=== PATIENT | female | born 1950 | race Caucasian/White ===

== ENCOUNTER → 2016-10-30 | Outpatient (CLI) | payer OTHER ==
[~2016-10-30] MED LIST: ASPCH81X PO; BIOFTAB23 PO; CALCTAB5 PO; CHOL100010 PO; CYAN1LOZ PO; ECHI1CAP; GLC500 PO; GLUCTAB7 PO; INSDGI SC; LACT10CA PO; LISI-791 PO; MAGN400T6 PO; NVLGI7030 SC; OMEG10007 PO; TRIA37.5 PO; hctz
--- NOTE | 2016-10-30 16:52 | MAMMOGRAPHY REPORT ---
BILATERAL DIGITAL SCREENING MAMMOGRAM TOMOSYNTHESIS WITH CAD: 10/30/2016 TECHNIQUE: Breast tomosynthesis in addition to standard 2D mammography was performed. Current study was also evaluated with a Computer Aided Detection (CAD) system. COMPARISON: Comparison is made to exams dated: 10/23/2015 mammogram, 10/21/2014 mammogram, 10/20/2013 suzy mogram, 10/19/2012 mammogram, 10/16/2011 mammogram, and 05/27/2011 mammogram - [facility] er. BREAST COMPOSITION: There are scattered areas of fibroglandular density in both breasts. FINDINGS: No suspicious masses, calcifications, or areas of architectural distortion are noted in e ither breast. There has been no significant interval change compared to prior exams. There are stab le postsurgical changes in the left upper outer quadrant from prior lumpectomy, including stable arc hitectural distortion and coarse benign dystrophic calcifications at the lumpectomy bed. Other scat tered benign-appearing calcifications are stable. IMPRESSION: ACR BI-RADS CATEGORY 2: BENIGN There is no mammographic evidence of malignancy. A 1 year screening mammogram is recommended. The p atient will receive written notification of the results. Approximately 10% of breast cancers are not detected with mammography. A negative mammographic repor t should not delay biopsy if a clinically suggestive mass is present. Brionna Browne M.D. ah/:10/30/2016 15:16:20 Physician Locums Urgent Care: Renee JACOME)(Dane), [facility] letter sent: Normal 1/2 BI-RADS Code: ACR BI-RADS Category 2: Benign
== END | disposition home or self-care (01) ==
LOC: C.MAMM 09:17
PROVIDERS: ATTEND Family Medicine
DX: Z12.31 Encounter for screening mammogram for malignant neoplasm of breast (principal)

== ENCOUNTER → 2016-11-15 | Outpatient (CLI) | payer OTHER | END | disposition home or self-care (01) | LOC: C.PAPS 15:28 | PROVIDERS: ATTEND Obstetrics & Gynecology | DX: Z01.419 Encounter for gynecological examination (general) (routine) without abnormal findings (principal); C55 Malignant neoplasm of uterus, part unspecified ==

== ENCOUNTER → 2017-02-12 | Outpatient (CLI) | payer OTHER ==
[2017-02-12 13:34] VITALS: BP 156/84; PULSE 74; TEMP 36.6; O2SAT 100
--- NOTE | 2017-02-12 17:30 | Radiation Oncology Follow-Up ---
Radiation Oncology Follow-Up Date of Visit February 12, 2017. Reason For Visit Annual follow-up Radiation Completion Date 06/02/2014 Diagnosis (1) Breast cancer Status: Resolved Onset Date: 11/28/2010 Stage: l Permanent Comment: Status post infiltrating ductal carcinoma of the left breast Status post lumpectomy and sentinel lymph node biopsy Pathologic stage [id number], estrogen receptor positive, progesterone receptor positive, HER-2/rachel negative. Status post completion of radiation therapy 02/08/2011 received 3850 cGy utilizing accelerated partial breast treatment Patient declined tamoxifen therapy Last Edited By: Paula Irene on Jan 04, 2015 16:30 (2) Uterus cancer Status: Resolved Onset Date: 11/24/2013 Permanent Comment: Postmenopausal vaginal bleeding Status post D&C suspicious for low-grade carcinoma. 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 She denies any changes to her breast. She has noted no masses or tenderness and no change of the axilla. She has noticed no increasing swelling of her arm. She was previously treated to the lymphedema clinic. She has a sleeve available to use. She is up-to- date on mammography. She saw Dr. No Lott in November and had a Pap smear. She denies any vaginal discharge or irritation. She no longer uses a vaginal dilator. There is been no change in urination or bowel habits. Allergies Coded Allergies: Penicillins (Verified Allergy, Intermediate, BODY RASH, 11/24/13) Home Medications Scheduled Aspirin (Aspirin Chewable), 81 MG PO DAILY Bioflavonoid Products (Vitamin C Plus), 1,000 MG PO DAILY Calcium (Caltrate), 600 MG PO DAILY Cholecalciferol (Vitamin D), 1,000 INTER.UNIT PO DAILY Cyanocobalamin (Vitamin B 12), 6,000 MCG PO DAILY Echinacea (Echinacea), DAILY Fish Oil ([place]-3), 900 MG PO DAILY Zknaoabzaky-Sjlhqyxfovb-Xhr C- (Glucosamine Chondroitin), 1 TAB PO BID Insulin Aspart 70/30 (Novolog Mix 70/30), 10 UNITS SC BID Insulin Glargine (Lantus), 20 UNITS SC AMPM Lisinopril (Zestril), 40 MG PO DAILY Magnesium Oxide (Mag-Ox), 400 MG PO DAILY Metformin HCL (Glucophage *), 1,000 MG PO BID Triamterene/Hctz (Dyazide 37.5MG/25MG), 1 TAB PO DAILY [hctz], QAM Review of Systems Gastrointestinal: Symptoms: WNL Oral: Symptoms: No Problems Respiratory: Symptoms: WNL Urinary: Symptoms: WNL Skin: Symptoms: No Problems Breast: Right Upper Arm Measurement: 44.5 Right Mid Arm Measurement: 30.0 Right Wrist Measurement: 16.0 Left Upper Arm Measurement: 13.5 Left Mid Arm Measurement: 31.0 Left Wrist Measurement: 16.0 Arm Dominence: Right Physical Exam Vital Signs Date Time Temp Pulse Resp B/P Pulse Ox O2 Delivery O2 Flow Rate FiO2 02/12/17 13:34 36.6 74 20 156/84 100 Pain: Patient Pain Scale: 0 - 10 Initial Pain Intensity: 0.0 Fatigue: None General Appearance: + obese Eyes: normal inspection, EOMI ENT: normal ENT inspection Neck: supple, no adenopathy, thyroid normal Respiratory/Chest: lungs clear, no respiratory distress, no accessory muscle use Breast: Breast examination reveals well-healed incisions of the left breast. There are no masses or tenderness and no axillary adenopathy. She has no skin retractions or nipple changes. Using the [place] score cosmesis she has a good outcome. The right breast showed no masses or tenderness and no axillary adenopathy. Cardiovascular: regular rate, rhythm, no gallop, no murmur Abdomen: non tender, soft Genitourinary - Female: Pelvic examination reveals normal external genitalia. She does have telangiectasia at the apex of the vagina. There is foreshortening. There is no vaginal discharge. No tenderness on bimanual examination. Anal / Rectum: Recently performed at the gynecology office. Extremities: no pedal edema Neurologic/Psychiatric: no motor/sensory deficits, alert, normal mood/affect Skin: warm/dry Lymphatic: no adenopathy Additional Studies Patient: DELLA ADAMS [facility] Rec: [id number] Address1: [address] [place] [address] Address2: Acct ID: [id number] Date: 1950 Sex: F Ref Phy: Att Phy: Brooke Fuentes M.D. Mallika Phy: Brooke Fuentes M.D. Inter Phy: Brionna Browne MD [facility] Zip: [place] [address] SC: C.MAMM Report #: [id number] Nurse'S Companion: APRIL Diagnosis: ASYMPTOMATIC Service Date: 10/30/16 MNE: [id number] Ordering Dr: Brooke Fuentes M.D. CC: Brooke Fuentes M.D. CONF: DICTATED BY: Brionna Browne MD MAMMOGRAPHY REPORT BILATERAL DIGITAL SCREENING MAMMOGRAM TOMOSYNTHESIS WITH CAD: 10/30/2016 TECHNIQUE: Breast tomosynthesis in addition to standard 2D mammography was performed. Current study was also evaluated with a Computer Aided Detection (CAD ) system. COMPARISON: Comparison is made to exams dated: 10/23/2015 mammogram, 10/21/2014 mammogram, 10/20/2013 mammogram, 10/19/2012 mammogram, 10/16/2011 mammogram, and 2010 mammogram - [facility]. BREAST COMPOSITION: There are scattered areas of fibroglandular density in both breasts. FINDINGS: No suspicious masses, calcifications, or areas of architectural distortion are noted in either breast. There has been no significant interval change compared to prior exams. There are stable postsurgical changes in the left upper outer quadrant from prior lumpectomy, including stable architectural distortion and coarse benign dystrophic calcifications at the lumpectomy bed. Other scattered benign-appearing calcifications are stable. IMPRESSION: ACR BI-RADS CATEGORY 2: BENIGN There is no mammographic evidence of malignancy. A 1 year screening mammogram is recommended. The patient will receive written notification of the results. Approximately 10% of breast cancers are not detected with mammography. A negative mammographic report should not delay biopsy if a clinically suggestive mass is present. Brionna Browne M.D. ah/:10/30/2016 15:16:20 Weight Analyst: Renee GREENWOOD(Nba)(M), [facility] letter sent: Normal 1/2 BI-RADS Code: ACR BI-RADS Category 2: Benign Dictated by: Brionna Browne MD Signed by: Brionna Browne MD Name: DELLA ADAMS Age/Sex: 66/F Location: [facility] MR#: [id number] : 1950 Rm/Bed Physician: No Lott M.D. Case: [id number] Received 11/18/16 Specimen Date 11/15/16 Specimen: VAGINAL THIN PREP LMP HYSTER GYNECOLOGICAL RESULTS DIAGNOSIS: Negative for intraepithelial Lesion or Malignancy Benign glandular cells present post-hysterectomy ADEQUACY OF THE SPECIMEN: Satisfactory for evaluation AUTOMATED EXAMINATION: This specimen was successfully imaged by the ThinPrep Imaging System, [employer], [facility]. COPIES TO Brooke Fuentes M.D. Stephenson, Laura L., M.D. Signed <signature on file> 11/19/[address] <signature on file> 05/01 Willy Santana M.D. Assessment & Plan Plan: Continue annual mammography. Continue regular follow-up with gynecology. She is seen every 6 months. We asked her to return to our office in 1 year. She may call if she has any questions or concerns in the interim. Total Time In Follow-Up I spent 25 minutes speaking to the patient performing examination. I spent 15 minutes reviewing information and completing this note. Copy To No Lott M.D. Problem Qualifiers (1) Breast cancer: Breast location: upper outer quadrant of breast Estrogen receptor status: positive Patient sex: female Laterality: right Qualified Codes: C50.411 - Malignant neoplasm of upper-outer quadrant of right female breast; Z17.0 - Estrogen receptor positive status [ER+]
== END | disposition home or self-care (01) ==
LOC: C.ONC 13:21
PROVIDERS: ATTEND Physician Assistant Medical
DX: Z08 Encounter for follow-up examination after completed treatment for malignant neoplasm (principal); Z92.3 Personal history of irradiation; Z85.3 Personal history of malignant neoplasm of breast; Z85.42 Personal history of malignant neoplasm of other parts of uterus

== ENCOUNTER → 2017-02-13 | Outpatient (CLI) | payer OTHER ==
[~2017-02-13] MED LIST changes: -LACT10CA PO
[2017-02-13 13:20] LABS: ESTIMATED AVERAGE GLUCOSE 151 mg/dl; HA1C FLAG Normal (Normal)
[2017-02-13 13:25] LABS: ALT/SGPT 32 U/L (12-78); AST/SGOT 16 U/L (15-37); BLOOD UREA NITROGEN 23 mg/dl (7-18); BUN/CREATININE RATIO 24.1 (10-20); CARBON DIOXIDE 26 mmol/L (21-32); CHLORIDE 104 mmol/L (98-107); CHOLESTEROL 171 mg/dl (0-200); CREATININE 0.97 mg/dl (0.60-1.20); GLUCOSE 154 mg/dl (70-99); POTASSIUM 4.4 mmol/L (3.5-5.1); SODIUM 138 mmol/L (136-145); TRIGLYCERIDES 191 mg/dl (0-150); VERY LOW DENSITY LIPOPROT CALC 38 mg/dl
[2017-02-13 13:36] LABS: ALB/GLOB RATIO 0.8 (0.9-2); ALKALINE PHOSPHATASE 80 U/L (45-117); CHOLESTEROL/HDL RATIO 4.6; HDL CHOLESTEROL 37 mg/dl; LDL CHOLESTEROL CALCULATED 96 mg/dl
[2017-02-13 13:37] LABS: CALCIUM 9.3 mg/dl (8.5-10.1)
== END | disposition home or self-care (01) ==
LOC: C.LABPVFM 07:54
PROVIDERS: ATTEND Family Medicine
DX: I10 Essential (primary) hypertension (principal); E78.5 Hyperlipidemia, unspecified; G47.33 Obstructive sleep apnea (adult) (pediatric); E11.9 Type 2 diabetes mellitus without complications

== ENCOUNTER → 2017-08-15 | Outpatient (CLI) | payer OTHER | END | disposition home or self-care (01) | LOC: C.PAPS 16:45 | PROVIDERS: ATTEND Obstetrics & Gynecology | DX: C55 Malignant neoplasm of uterus, part unspecified (principal) ==

== ENCOUNTER → 2017-08-21 | Outpatient (CLI) | payer OTHER ==
--- NOTE | 2017-08-21 14:05 | DIAGNOSTIC IMAGING REPORT ---
R SHOULDER MIN 2 VIEWS ROUTINE CLINICAL HISTORY: SHOULDER PAIN/ENDOMETRIOID ADENOCARCINOM OF UTERUS pain COMPARISON: None. DISCUSSION: Considerable degenerative change of the glenohumeral joint. Moderate degenerative change at the posterior surface of the humerus. Potential sclerosis lateral margin of the scapula and glenoid. MRI of the right shoulder is suggested to exclude possibility of a neoplastic process. Complete loss of articular services and or joint space. Moderate calcific supraspinatus tendinitis. IMPRESSION: 1. Degenerative change considered significant with associated sclerosis of the abdomen and humeral head. 2. MRI of the right shoulder is suggested to exclude any possibility of metastatic bone disease. 3. Mild calcific supraspinatus tendinitis. The above report was generated using voice recognition software. It may contain grammatical, syntax or spelling errors. Electronically signed by: Sae Walker M.D. 08/21/2017 2:04 PM Dictated Date/Time: 08/21/2017 2:03 PM
== END | disposition home or self-care (01) ==
LOC: C.RADPV 13:47
PROVIDERS: ATTEND Family Medicine
DX: M89.8X1 Other specified disorders of bone, shoulder (principal); M75.31 Calcific tendinitis of right shoulder; C55 Malignant neoplasm of uterus, part unspecified

== ENCOUNTER → 2017-09-17 | Outpatient (CLI) | payer OTHER ==
[~2017-09-17] MED LIST changes: +ASCO500C3 PO; +ASPI-589 PO; +CALC-393 PO; +COEN1CAP17 PO; +COLON PROBIOTIC PO; +CYAN1LOZ SL; +ECHICAP PO; +GLC/500 PO; +INSU100I23 SC; +METF1000 PO; +NVLG SQ; +NYSTCRE11 EX; +OMEG10002 PO; +[UNRECOGNIZED DRUG - CODE] PO
--- NOTE | 2017-09-17 11:38 | DIAGNOSTIC IMAGING REPORT ---
R UPPER EXT JOINT WITHOUT CLINICAL HISTORY: M25.511 Shoulder pain, [id number] abnormal shoulder series dated 08/21/2017 TECHNIQUE: Multi axial MRI acquisition COMPARISON STUDY: Shoulder series 08/21/2017 FINDINGS: Compromised study technically due to severe patient motion. No evidence for a significant bone marrow replacing process. The areas of sclerosis previous described within the lateral margin of the scapula as well as humeral head appears to be secondary to degenerative change. There does not appear to be significant evidence for a neoplastic process. There are findings of rather severe degenerative change of the glenohumeral joint. There is considerable loss of articular surface. There is mild flattening of the services the glenoid as well as humeral head. There is a moderate joint effusion. There is fluid within the acromioclavicular and subdeltoid region. Biceps tendon is intact. Axial images are of very poor quality technically although considerable deterioration of the glenoid labrum is present. The infraspinatus tendon is intact. There may be moderate tendinopathy of the subscapularis tendon with a small partial tear. The supraspinatus tendon demonstrates a full-thickness tear of its mid to anterior aspect. There is no significant musculotendinous retraction. Image quality throughout is severely compromised again due to patient motion. IMPRESSION: 1. Severely compromised exam due to extensive patient motion. 2. Severe degenerative change of the glenohumeral and to a lesser extent acromioclavicular joints with several areas of benign degenerative sclerosis. 3. No evidence for bone marrow replacement or metastatic change based on this limited scan. 4. The sclerotic changes seen in patient's prior routine image series appear to be based on degenerative change. 5. Full-thickness tear supraspinatus tendon 6. Joint effusion. 7. Moderate subscapularis tendinopathy with a small partial thickness tear. 8. Considerable deterioration on a degenerative basis of the glenoid labrum. The above report was generated using voice recognition software. It may contain grammatical, syntax or spelling errors. Electronically signed by: Sae Walker M.D. 09/17/2017 11:37 AM Dictated Date/Time: 09/17/2017 11:30 AM
== END | disposition home or self-care (01) ==
LOC: C.MRI 10:00
PROVIDERS: ATTEND Family Medicine
DX: M25.511 Pain in right shoulder (principal)

== ENCOUNTER → 2017-10-02 | Outpatient (CLI) | payer OTHER ==
[~2017-10-02] MED LIST changes: -ASCO500C3 PO; -ASPI-589 PO; -CALC-393 PO; -COEN1CAP17 PO; -COLON PROBIOTIC PO; -CYAN1LOZ SL; -ECHICAP PO; -GLC/500 PO; -INSU100I23 SC; -METF1000 PO; -NVLG SQ; -NYSTCRE11 EX; -OMEG10002 PO; -[UNRECOGNIZED DRUG - CODE] PO
[2017-10-02 13:05] LABS: HEMOGLOBIN A1C 6.4 % (4.5-5.6)
[2017-10-02 14:05] LABS: ALBUMIN 3.3 gm/dl (3.4-5.0); ALT/SGPT 26 U/L (12-78); AST/SGOT 11 U/L (15-37); BLOOD UREA NITROGEN 38 mg/dl (7-18); CALCIUM 8.9 mg/dl (8.5-10.1); CARBON DIOXIDE 25 mmol/L (21-32); CREATININE 1.96 mg/dl (0.60-1.20); GLUCOSE 148 mg/dl (70-99); POTASSIUM 4.9 mmol/L (3.5-5.1); SODIUM 136 mmol/L (136-145)
[2017-10-02 14:08] LABS: ALKALINE PHOSPHATASE 89 U/L (45-117); CHOLESTEROL 170 mg/dl (0-200); LDL CHOLESTEROL CALCULATED 101 mg/dl; TOTAL PROTEIN 7.9 gm/dl (6.4-8.2)
== END | disposition home or self-care (01) ==
LOC: C.LABPVFM 08:02
PROVIDERS: ATTEND Family Medicine
DX: I10 Essential (primary) hypertension (principal); G47.30 Sleep apnea, unspecified; E78.5 Hyperlipidemia, unspecified; C55 Malignant neoplasm of uterus, part unspecified; E11.9 Type 2 diabetes mellitus without complications; E66.9 Obesity, unspecified

== ENCOUNTER → 2017-10-03 | Outpatient (CLI) | payer OTHER | END | disposition home or self-care (01) | LOC: C.LABPVFM 16:29 | PROVIDERS: ATTEND Family Medicine | DX: I10 Essential (primary) hypertension (principal); G47.30 Sleep apnea, unspecified; E78.5 Hyperlipidemia, unspecified; C55 Malignant neoplasm of uterus, part unspecified; E11.9 Type 2 diabetes mellitus without complications; E66.9 Obesity, unspecified; R79.89 Other specified abnormal findings of blood chemistry; R77.1 Abnormality of globulin ==

== ENCOUNTER → 2017-11-20 | Outpatient (CLI) | payer OTHER ==
--- NOTE | 2017-11-20 15:04 | MAMMOGRAPHY REPORT ---
BILATERAL DIGITAL SCREENING MAMMOGRAM TOMOSYNTHESIS WITH CAD: 11/20/2017 CLINICAL HISTORY: Asymptomatic. Personal history of breast cancer. TECHNIQUE: Breast tomosynthesis in addition to standard 2D mammography was performed. Current study was also evaluated with a Computer Aided Detection (CAD) system. COMPARISON: Comparison is made to exams dated: 10/30/2016 mammogram, 10/23/2015 mammogram, 10/21/2014 suzy mogram, 10/20/2013 mammogram, 10/19/2012 mammogram, and 10/16/2011 mammogram - [facility] . BREAST COMPOSITION: There are scattered areas of fibroglandular density in both breasts. FINDINGS: No suspicious masses, calcifications, or areas of architectural distortion are noted in ei ther breast. There has been no significant interval change compared to prior exams. There are stable postsurgical changes in the left upper outer quadrant from prior lumpectomy, including stable maynor ectural distortion and coarse benign dystrophic calcifications at the lumpectomy bed. Other scattere d benign-appearing calcifications are stable. Note that the right MLO view is suboptimal and the pec toralis muscle is not well visualized as the patient could not tolerate proper positioning due to a f rozen right shoulder. IMPRESSION: ACR BI-RADS CATEGORY 2: BENIGN There is no mammographic evidence of malignancy. A 1 year screening mammogram is recommended. The pa tient will receive written notification of the results. Approximately 10% of breast cancers are not detected with mammography. A negative mammographic report should not delay biopsy if a clinically suggestive mass is present. Brionna Browne M.D. ah/:11/20/2017 12:06:18 Compressor Technician: Magdalena GREENWOOD(Nba)(Dane), [facility] letter sent: Normal 1/2 BI-RADS Code: ACR BI-RADS Category 2: Benign
== END | disposition home or self-care (01) ==
LOC: C.MAMM 11:36
PROVIDERS: ATTEND Family Medicine
DX: Z12.31 Encounter for screening mammogram for malignant neoplasm of breast (principal); Z85.3 Personal history of malignant neoplasm of breast

== ENCOUNTER → 2017-12-02 | Outpatient (CLI) | payer OTHER ==
[~2017-12-02] MED LIST changes: +ASCO500C3 PO; -ASPCH81X PO; +ASPI-589 PO; -BIOFTAB23 PO; +CALC-393 PO; -CALCTAB5 PO; -CHOL100010 PO; +COEN1CAP17 PO; +COLON PROBIOTIC PO; -CYAN1LOZ PO; +CYAN1LOZ SL; -ECHI1CAP; +ECHICAP PO; -GLC500 PO; -INSDGI SC; +INSU100I23 SC; +METF1000 PO; +NYSTCRE11 EX; +OMEG10002 PO; -OMEG10007 PO; +[UNRECOGNIZED DRUG - CODE] PO; -hctz
== END | disposition home or self-care (01) ==
LOC: C.LABPVFM 12:10
PROVIDERS: ATTEND Family Medicine
DX: R79.89 Other specified abnormal findings of blood chemistry (principal); R77.1 Abnormality of globulin

== ENCOUNTER → 2017-12-17 | Outpatient (CLI) | payer OTHER ==
[2017-12-17 13:08] LABS: ALBUMIN 3.5 gm/dl (3.4-5.0); BLOOD UREA NITROGEN 35 mg/dl (7-18); CALCIUM 9.3 mg/dl (8.5-10.1); CARBON DIOXIDE 25 mmol/L (21-32); CREATININE 1.54 mg/dl (0.60-1.20); GLUCOSE 113 mg/dl (70-99); POTASSIUM 4.6 mmol/L (3.5-5.1); SODIUM 134 mmol/L (136-145)
[2017-12-17 13:09] LABS: PHOSPHORUS 3.8 mg/dl (2.5-4.9)
== END | disposition home or self-care (01) ==
LOC: C.LAB1850 11:40
PROVIDERS: ATTEND Internal Medicine Nephrology
DX: N28.9 Disorder of kidney and ureter, unspecified (principal)

== ENCOUNTER 2017-12-26 07:04 | Inpatient (IN) | payer OTHER ==
[2017-11-26 08:30] VITALS: BMI 43.0
--- NOTE | 2017-11-26 09:04 | PAT Medication Instructions ---
"Service Date Nov 26, 2017. Current Home Medication List Ascorbic Acid (Vitamin C), 1 DOSE PO QAM Aspirin (Aspirin Adult Low Dose), 1 TAB PO QPM Calcium Carbonate (Calcium), 1 TAB PO QAM Cholecalciferol (D 1000), 1 DOSE PO QAM Coenzyme Q10 (Ubidecarenone) (Co Q 10), 1 TAB PO QPM Cyanocobalamin (B-12), 6,000 MCG SL QAM Echinacea-Goldenseal (Echinacea Comb/[place]rera [place]), 1 TAB PO QAM Kbduishzpyt-Opvvzwmgxua-Zig C- (Glucosamine Chondroitin), 1 TAB PO BID Insulin Aspart 70/30 (Novolog Mix 70/30), 1 DOSE SC TIDM Insulin Glargine (Lantus), 20 UNITS SC AMPM Insulin Glargine (Basaglar Kwikpen), 20 UNITS SC BID Lisinopril (Zestril), 40 MG PO QPM Magnesium Oxide (Mag-Ox), 400 MG PO QPM Metformin Hcl (Glucophage), 1 TAB PO BID Nystatin/Triamcinolone (Mycogen || ), 1 APPLN EX QD PRN for skin irritation [place]-3 Fatty Acids (Fish Oil), 1 CAP PO BID Triamterene/Hctz (Dyazide 37.5MG/25MG), 1 TAB PO QAM [colon probiotic], 1 TAB PO QAM Medication Instructions For Your Scheduled Surgery - Hold the following medications 2 weeks prior to surgery: Coenzyme Q10 (Ubidecarenone) (Co Q 10), 1 TAB PO QPM Echinacea-Goldenseal (Echinacea Comb/[place]), 1 TAB PO QAM Wxcplodsleg-Pyqdqbtvdrr-Tqy C- (Glucosamine Chondroitin), 1 TAB PO BID [place]-3 Fatty Acids (Fish Oil), 1 CAP PO BID - Hold the following medications 24 hours prior to surgery: Lisinopril (Zestril), 40 MG PO QPM Nystatin/Triamcinolone (Mycogen || ), 1 APPLN EX QD PRN for skin irritation - Hold the following medications the morning of surgery: Ascorbic Acid (Vitamin C), 1 DOSE PO QAM Calcium Carbonate (Calcium), 1 TAB PO QAM Cholecalciferol (D 1000), 1 DOSE PO QAM Cyanocobalamin (B-12), 6,000 MCG SL QAM Insulin Aspart 70/30 (Novolog Mix 70/30), 1 DOSE SC TIDM Metformin Hcl (Glucophage), 1 TAB PO BID [colon probiotic], 1 TAB PO QAM Triamterene/Hctz (Dyazide 37.5MG/25MG), 1 TAB PO QAM - Take the following medications as scheduled the night before surgery: Aspirin (Aspirin Adult Low Dose), 1 TAB PO QPM Insulin Aspart 70/30 (Novolog Mix 70/30), 1 DOSE SC TIDM Insulin Glargine (Basaglar Kwikpen), 20 UNITS SC BID Magnesium Oxide (Mag-Ox), 400 MG PO QPM Metformin Hcl (Glucophage), 1 TAB PO BID - For Insulin Dependent Diabetic patients: Test blood sugar A.M. of surgery. - If BLOOD SUGAR IS GREATER THAN 150, take half of your regular dose of: Insulin Glargine (Basaglar Kwikpen) --TAKE 10 UNITS - If BLOOD SUGAR IS LESS THAN 150, do not take any: Insulin Glargine ( Basaglar Kwikpen) If you have any questions please call us at [phone] or [phone] or [phone]"
--- NOTE | 2017-11-26 10:14 | DIAGNOSTIC IMAGING REPORT ---
CHEST 2 VIEWS ROUTINE HISTORY: 67 years-old Female PAT preoperative exam. No acute chest complaints COMPARISON: Chest radiographs 01/20/2014 TECHNIQUE: PA and lateral views of the chest FINDINGS: Prior mediastinal and hilar silhouettes are within normal limits. Peripherally calcified 9 mm structure projects over the left lung base laterally, likely within the left breast. Atherosclerosis of the aorta. There is no pneumothorax, pleural effusion, focal airspace consolidation or overt pulmonary edema. Degenerative changes are seen within the shoulders and spine. The bones appear grossly intact. IMPRESSION: No acute process. The above report was generated using voice recognition software. It may contain grammatical, syntax or spelling errors. Electronically signed by: Berto Chang M.D. 11/26/2017 10:13 AM Dictated Date/Time: 11/26/2017 10:11 AM
[2017-11-26 10:25] LABS: BASO % 0.2 %; BASO ABS # 0.01 K/uL (0-0.2); EOS % 3.9 %; EOS ABS # 0.26 K/uL (0-0.5); HEMATOCRIT 34.3 % (37-47); IG# 0.01 K/uL (0.00-0.02); LYMPH % 16.2 %; LYMPH ABS # 1.08 K/uL (1.2-3.4); MEAN CORPUSCULAR HEMOGLOBIN 29.2 pg (25-34); MEAN CORPUSCULAR HGB CONC 32.1 g/dl (32-36); MEAN PLATELET VOLUME 10.5 fL (7.4-10.4); MONO % 6.6 %; MONO ABS # 0.44 K/uL (0.11-0.59); NEUT % 72.9 %; NEUT ABS # 4.86 K/uL (1.4-6.5); PLATELET COUNT 207 K/uL (130-400); RED CELL DISTRIBUTION WIDTH CV 15.6 % (11.5-14.5); WHITE BLOOD COUNT 6.66 K/uL (4.8-10.8)
[2017-11-26 10:31] LABS: PTT PATIENT 24.7 SECONDS (21.0-31.0)
[2017-11-26 10:39] LABS: CALCIUM 9.1 mg/dl (8.5-10.1); CREATININE 1.55 mg/dl (0.60-1.20); POTASSIUM 4.6 mmol/L (3.5-5.1)
--- NOTE | 2017-12-25 11:15 | HISTORY & PHYSICAL EXAMINATION ---
DATE OF ADMISSION: 12/26/2017 CHIEF COMPLAINT: Primary osteoarthritis of the right shoulder. HISTORY OF PRESENT ILLNESS: Dionna is a 67-year-old female who has been having a 1-year history of right shoulder pain. MRI of the shoulder showed no signs of rotator cuff tear but advanced osteoarthritis. After failing extensive conservative treatment including multiple injections, she has elected to proceed with a right total shoulder arthroplasty. PAST MEDICAL HISTORY: Significant for diabetes, hypertension, breast cancer. MEDICATIONS: Include aspirin, insulin, CoQ10, echinacea, fish oil, glucosamine chondroitin, lisinopril, magnesium, vitamin C, metformin, metoprolol, NovoLog FlexPen, nystatin cream, triamterene/HCTZ, vitamin B12 and vitamin D. PAST SURGICAL HISTORY: Breast lumpectomy and hysterectomy. ALLERGIES: PENICILLIN, WHEAT AND DUST. FAMILY HISTORY: Significant for diabetes and heart disease. SOCIAL HISTORY: Patient is , lives alone, has 2 kids. Never drinks. She is moderately active. REVIEW OF SYSTEMS: Complains mostly of right shoulder pain. All other pertinent review of systems is negative. PHYSICAL EXAMINATION: GENERAL: She is awake, alert and orient x3. She is in no apparent distress. She is very pleasant. HEENT: Pupils equal, round and reactive to light. Extraocular movements are intact. Oral mucosa is pink and moist. HEART: Regular rate per radial pulse. LUNGS: Sofie symmetrically bilaterally with no audible breath sounds. ABDOMEN: Soft, nontender, nondistended. MUSCULOSKELETAL: On physical examination of her shoulder, she has 120 degrees of forward elevation, 100 degrees of abduction. She has crepitus to range of motion both passive and active. She has good strength, 5/5 muscle strength with full can test and external rotation. Negative bear hug and belly press test. IMAGING: X-rays of the shoulder do show advanced glenohumeral arthritis. The humeral head is located within the glenoid. There is some posterior glenoid wear but not bad. IMPRESSION: Primary osteoarthritis of the right shoulder. PLAN: Will proceed with a Biomet comprehensive right total shoulder arthroplasty. Postoperatively, she will be placed in an arm sling and kept overnight for postoperative medical management.
[2017-12-26] VITALS (8 sets, daily range): BP systolic 103–153; BP diastolic 50–90; PULSE 68–91; TEMP 36.3–36.9; O2SAT 93–99; Ht 163.8 cm; Wt 115.5 kg
[~2017-12-26] VITALS: Ht 163.8 cm; Wt 115.5 kg
[~2017-12-26 07:04] MED LIST changes: +ACETAMINOPHEN 500 MG TAB PO SCH; +CEFAZOLIN 2000MG IV PUSH 15 ML IV SCH; +FAMOTIDINE 20 MG TAB PO SCH; +GABAPENTIN 300 MG CAP PO SCH; +LACTATED RINGER'S 1000ML 1,000 ML IV SCH; +LACTATED RINGER'S 1000ML IV SCH; +ROPIVACAINE 0.5% 5 MG/ML 30 ML VIAL ONE; +ROPIVACAINE 5MG/ML 30 ML 150 MG, BUPIVACAINE 0.5% MPF INJ 30 ML, EpINEphrine HCL INJ 0.... INFIL SCH; +TRANEXAMIC ACID INJ 1,000 MG x 2 Bags IV SCH
[2017-12-26] MEDS ORDERED: FENTANYL CITRATE INJ 50 MCG/1 ML 2 ML VIAL ONE (07:23)
[2017-12-26] MEDS ORDERED: MIDAZOLAM HCL 1 MG/ML 2ML VIAL ONE (07:23)
[2017-12-26] MEDS ORDERED: BACITRACIN 50000 UNIT VIAL ONE (08:53)
--- NOTE | 2017-12-26 08:59 | History & Physical Bridge Note ---
H&P Re-Evaluation Bridge Note: I have examined the patient, reviewed the History & Physical and in the interval since the performance of the History & Physical I have noted the following changes of clinical significance: No changes noted
[2017-12-26] MEDS ORDERED: ROPIVACAINE 5MG/ML 30 ML 150 MG, BUPIVACAINE 0.5% MPF INJ 30 ML, EpINEphrine HCL INJ 0.... INFIL SCH ×8 (09:30)
[2017-12-26] MEDS ORDERED: PHENYLEPHRINE 100MCG/ML 5ML SYR ONE (10:07)
[2017-12-26] MEDS ORDERED: SUCCINYLCHOLINE CHLORIDE 20 MG/ML 10 ML VIAL IV ONE (10:07)
[2017-12-26] MEDS ORDERED: EpHEDrine SULFATE 50MG/5ML SYR ONE (10:07)
[2017-12-26] MEDS ORDERED: ONDANSETRON INJ 2 MG/ML 2 ML VIAL ONE (10:07)
[2017-12-26] MEDS ORDERED: NEOSTIGMINE METHYLSULFATE 5 MG/5 ML SYR ONE (10:07)
[2017-12-26] MEDS ORDERED: PHENYLEPHRINE HCL INJ 10 MG/ML VIAL ONE (10:07)
[2017-12-26] MEDS ORDERED: CISATRACURIUM BESYLATE IV SOLN 2 MG/ML 10 ML VIAL ONE (10:07)
[2017-12-26] MEDS ORDERED: PROPOFOL IV EMULSION 10 MG/ML 20 ML VIAL IV ONE ×2 (10:07→11:04)
[2017-12-26] MEDS ORDERED: GLYCOPYRROLATE INJ 0.2 MG/ML VIAL ONE ×2 (10:07)
[2017-12-26] MEDS ORDERED: LIDOCAINE HCL 2% 2 ML VIAL (20MG/ML) ONE (10:07)
[2017-12-26] MEDS ORDERED: DEXAMETHASONE SOD INJ 4 MG/ML VIAL ONE (10:07)
--- NOTE | 2017-12-26 11:04 | [facility] Post Operative Brief Note ---
Immediate Operative Summary Operative Date Dec 26, 2017. Pre-Operative Diagnosis Primary Osteoarthritis Right Shoulder Post-Operative Diagnosis Primary Osteoarthritis Right Shoulder Procedure(s) Performed Right Total Shoulder Arthroplasty--Cemented Surgeon Dr. Ramos Student Services Coordinator Surgeon(s) CHARLES Younger Estimated Blood Loss 250 cc Findings Consistent with Post-Op Diagnosis Specimens A. Portion of Right Humeral Head Drains None Anesthesia Type General Regional Complication(s) none Disposition Disposition: Recovery Room / PACU
[2017-12-26] MEDS ORDERED: DEXTROSE 50% 50 ML SYR IV PRN (11:15)
[2017-12-26] MEDS ORDERED: ONDANSETRON INJ 2 MG/ML 2 ML VIAL IV PRN ×2 (11:15→11:30)
[2017-12-26] MEDS ORDERED: GLUCAGON FOR INJ 1 MG VIAL SQ PRN (11:15)
[2017-12-26] MEDS ORDERED: BISACODYL 10 MG SUPP PR PRN (11:15)
[2017-12-26] MEDS ORDERED: MoRPHine SULFATE 2 MG/ML CARP IV PRN (11:15)
[2017-12-26] MEDS ORDERED: SOD PHOSPHATE/SOD BIPHOSPHATE ENEMA 132 ML BTL PR PRN (11:15)
[2017-12-26] MEDS ORDERED: NYSTATIN/TRIAMCINOLONE CR 15 GM TUBE EXT PRN (11:15)
[2017-12-26] MEDS ORDERED: OXYCODONE HCL IR 5 MG TAB (IMMEDIATE RELEASE) PO PRN (11:15)
[2017-12-26] MEDS ORDERED: GLUCOSE 40% GEL 15 GM TUBE PO PRN (11:15)
[2017-12-26] MEDS ORDERED: NALOXONE HCL 0.4 MG/1 ML VIAL/CARP IV PRN (11:15)
[2017-12-26] MEDS ORDERED: GLUCOSE 10 TABS/TUBE PO PRN (11:15)
[2017-12-26] MEDS ORDERED: METOCLOPRAMIDE HCL INJ 5 MG/ML 2 ML VIAL IV PRN (11:15)
[2017-12-26] MEDS ORDERED: MAGNESIUM HYDROXIDE SUSP 30 ML UDC PO PRN (11:15)
[2017-12-26] MEDS ORDERED: PHARMACY GLYCEMIC MGMT CONSULT PRN (11:21)
[2017-12-26] MEDS ORDERED: EpHEDrine SULFATE INJ 50 MG/ML AMP IV PRN (11:30)
[2017-12-26] MEDS ORDERED: PROMETHAZINE HCL INJ 12.5 MG in SODIUM CHLORIDE 0.9% 50ML 50 ML IV PRN (11:30)
[2017-12-26] MEDS ORDERED: ATROPINE SULFATE 0.1 MG/ML 5ML SYR IV PRN (11:30)
[2017-12-26] MEDS ORDERED: NVLG SQ (11:32)
--- NOTE | 2017-12-26 11:45 | Pharmacy Progress Note ---
Glycemic Control Intl Consult Date of Service Dec 26, 2017. Scope Glycemic Pharmacist consulted by Dr Ramos on 12/26/17 for glycemic control and to write orders per [facility] inpatient glycemic control protocol Objective Weight (Kilograms): 115.5 Accuchecks BSG (last 24hrs): Test 12/26/17 07:38 Bedside Glucose 162 mg/dl (70-90) Recent Pertinent Medications Outpatient Anti-diabetic Regimen: * Basaglar 23 units BID + Novolog TIDM 7 units/5 units/10 units + SS * Goal 90-140 * Sensitivity factor: 25 * A1c = 6.4 % 10/02/17 Risk Factors for Insulin Resistance: * Steroids: Ortho mix + dexamethasone 4 mg IV pre-op * Recent Surgery: POD #0 R- total shoulder arthroplasty * Diet: T2DM Assessment & Plan ASSESSMENT: * 67 yr old female s/p R total shoulder arthroplasty. * Patient is well controlled on basal/bolus insulin + metformin as an outpatient. She follows with [facility] Endocrinology. * She administered 50% of her home basal am dose this morning prior to surgery ( 12 units) * Continue basal + bolus insulin regimen while inpatient. Higher doses will be given on POD #0 and #1 d/t administration of IV steroids. * PM Lantus dose for today will be based off home dose of 23 units BID with stress of 3, which is equivalent to 43 units BID + 12 units to make up for partial dose of basal insulin this morning * Further Lantus orders will be based on 4/14 fasting BSG * Novolog CF/CR will also be based on off home dose with stress of 3 PLAN FOR INPATIENT GLYCEMIC CONTROL: * Holding outpatient oral diabetes medications * Will resume metformin once tolerating oral diet and evidence of stable renal function * Basal insulin * Lantus 55 units SQ this evening * Further Lantus ordered TBD * Bolus Insulin * NOVOLOG per scale ACHS or Q6hrs while NPO * Goal Range: Low 110 mg/dL - High 140 mg/dL * Correction Factor: 10 mg/dL/unit * Nutritional / Prandial insulin per carb ratio of 1 unit per 3 grams CHO consumed * Overnight checks with coverage at 00 and 04 DISCHARGE RECOMMENDATIONS: * HbA1c of 6.4% indicates adequate glycemic control. * Recommend continuation of home regimen on discharge. Thank you.
--- NOTE | 2017-12-26 12:03 | DIAGNOSTIC IMAGING REPORT ---
R SHOULDER MIN 2 VIEWS ROUTINE HISTORY: 67 years-old Female Post shoulder surgery status post right shoulder arthroplasty. Degenerative joint disease. COMPARISON: Right shoulder radiographs 08/21/2017 TECHNIQUE: 3 views of the right shoulder FINDINGS: Postoperative changes from right shoulder arthroplasty demonstrating satisfactory alignment without periprosthetic fracture or retained foreign body. Skin roxane are noted along with expected postsurgical soft tissue swelling and deep tissue air. IMPRESSION: Right shoulder arthroplasty with satisfactory alignment. The above report was generated using voice recognition software. It may contain grammatical, syntax or spelling errors. Electronically signed by: Berto Chang M.D. 12/26/2017 12:02 PM Dictated Date/Time: 12/26/2017 12:00 PM
--- NOTE | 2017-12-26 12:18 | Anesthesiology Progress Note ---
Anesthesia Post Op Note Date & Time Dec 26, 2017 at 12:18 Vital Signs Pain Intensity: 0 Vital Signs Past 12 Hours Date Time Temp Pulse Resp B/P (MAP) Pulse Ox O2 Delivery O2 Flow Rate FiO2 12/26/17 12:05 36.4 78 14 135/61 98 Nasal Cannula 2 12/26/17 11:55 98 14 140/55 98 Nasal Cannula 2 12/26/17 11:45 94 14 138/61 98 Oxymask 10 12/26/17 11:35 104 14 136/65 98 Oxymask 10 12/26/17 11:28 36.1 109 14 140/84 98 Oxymask 10 12/26/17 07:52 36.7 91 20 153/74 Room Air Notes Mental Status: alert / awake / arousable, participated in evaluation Pt Amnestic to Procedure: Yes Nausea / Vomiting: adequately controlled Pain: adequately controlled Airway Patency, RR, SpO2: stable & adequate BP & HR: stable & adequate Hydration State: stable & adequate Anesthetic Complications: no major complications apparent
[2017-12-26] MEDS: POTASSIUM CHLORIDE INJ 10 MEQ in SODIUM CHLORIDE 0.9% 1000ML 1,000 ML IV SCH (13:55)
[2017-12-26] MEDS ORDERED: NURSING DECISION MEDICATION ORDER SCH ×2 (14:00→20:15)
[2017-12-26] MEDS ORDERED: MICONAZOLE NITRATE POWDER 43 GM EXT PRN (14:00)
--- NOTE | 2017-12-26 14:01 | OPERATIVE REPORT ---
DATE OF OPERATION: 12/26/2017 PREOPERATIVE DIAGNOSIS: Primary osteoarthritis of the right shoulder. POSTOPERATIVE DIAGNOSIS: Same. PROCEDURE: Right total shoulder arthroplasty. SURGEON: Carroll Ramos DO. PARTY HOST: Harsh Guardado PA-C, whose assistance was necessary for retraction and closure. ANESTHESIA: General with a right interscalene nerve block. COMPLICATIONS: None. CONDITION: Stable to PACU. INDICATIONS: Dionna is a pleasant 67-year-old female who has been dealing with chronic progressing right shoulder pain. X-rays and clinical examination were diagnostic for primary osteoarthritis of the right shoulder. After failing conservative treatment, she elected to undergo a total shoulder arthroplasty. OPERATION AND FINDINGS: On 12/26/2017, she arrived at [facility] for the above procedure. She was seen in the preoperative holding and the operative extremity was identified and signed. She was given a preoperative antibiotic and a right interscalene nerve block. She was taken back to the operating room, laid on the table in supine position and put under general anesthesia. She was then put into the beach chair position. The right shoulder was prepped and draped in sterile fashion. Time-out was done and the patient and operative extremity was properly identified. A deltopectoral approach was used. Dissection was taken down through the fascia and the deltoid was retracted laterally and the conjoined tendon was retracted medially. The falciform ligament was released. The long head of the biceps tendon was tenodesed to the upper border of the pec major. The rotator interval was opened up. Subscapularis was then tenotomized off the lesser tuberosity with a centimeter of cuff tissue remaining. The proximal humerus was exposed. The rotator cuff was examined and appeared to be intact. A canal finding reamer was sent down the center of the humeral canal. Sequential reaming up to a size 9 reamer was done. Off that reamer, a proximal humeral resection guide was placed. The proximal humerus was then resected at 135 degrees inclination and 30 degrees of retroversion. The head was removed and inferior osteophytes were removed. The glenoid was then exposed. Time was spent doing an anterior superior capsular release. The remainder of the capsule and labrum were left intact. A Advaction signature guide was then snapped on to the anterior-superior glenoid. A guide pin was placed in the total shoulder arthroplasty hole. A medium propeller reamer was used to ream the glenoid. A central boss was drilled followed by 3 peripheral peg holes. A trial medium glenoid was used and seemed to be an excellent fit. The final glenoid with a Regenerex peg was then cemented into place with Palacos-G cement. The proximal humerus was then exposed. Sequential broaching up to a size 9 broach was done. Off that broach, a 46 x 18 mm head was trialled. It seemed to be a good fit. The shoulder was reduced, brought through a full range of motion and felt to be stable. The shoulder was then dislocated. Trial implants were removed. The final size 9 mini stem was impacted into place. A 46 x 18 mm eccentric head was then impacted into place. The shoulder was then reduced, brought through a full range of motion and felt to be stable. The subscapularis was then tenodesed back to the lesser tuberosity with transosseous FiberWire sutures and [id number] sutures. Two sutures were placed in the lateral rotator interval. The surrounding soft tissues were injected with 100 mL of an orthopedic pain control cocktail. The entire joint was irrigated with 3 liters normal saline solution with bacitracin. The axillary nerve was palpated. The skin was then closed with 2-0 Vicryl, 3-0 V-Loc suture and roxane. She was placed in a soft dressing and a regular arm sling. She was then extubated, transferred to a [facility] and taken to postanesthesia care in stable condition. She tolerated the procedure well. IMPLANTS USED: I used a [employer] comprehensive right total shoulder arthroplasty system with a size mini pressfit humeral stem, a 46 x 18 mm eccentric humeral head and a medium glenoid with a Regenerex post. The glenoid was cemented with Palacos-G cement. I attest to the content of the Intraoperative Record and any orders documented therein. Any exception s are noted below.
[2017-12-26] MEDS: INSULIN ASPART 100 UNITS/ML 3 ML PEN SC SCH ×3 (14:26→21:00)
[2017-12-26] MEDS ORDERED: INSULIN GLARGINE SOLOSTAR 100 UNITS/ML 3 ML PEN SC ONE (16:00)
[2017-12-26] MEDS: ACETAMINOPHEN IV 1,000 MG in EMPTY BAG 0 ML IV SCH (16:21)
[2017-12-26] MEDS: CEFAZOLIN IV 2,000 MG in SYRINGE 0 ML IV SCH (18:14)
[2017-12-26] MEDS: KETOROLAC TROMETHAMINE 15 MG/ML VIAL IV. SCH (18:14)
[2017-12-26] MEDS ORDERED: COUGH DROP (SUGAR FREE) LOZ 24 LOZ/1 BOX LOZ PRN (20:15)
[2017-12-26] MEDS ORDERED: SENNA 8.6 MG TAB PO SCH (21:00)
[2017-12-26] MEDS ORDERED: ASPIRIN 81 MG ECTAB PO SCH (21:00)
[2017-12-26] MEDS ORDERED: LISINOPRIL 40 MG TAB PO SCH (21:00)
[2017-12-26] MEDS: DOCUSATE SODIUM 100 MG CAP PO SCH (22:08)
[2017-12-27] MEDS: POTASSIUM CHLORIDE INJ 10 MEQ in SODIUM CHLORIDE 0.9% 1000ML 1,000 ML IV SCH ×2 (00:10→09:06)
[2017-12-27] MEDS: ACETAMINOPHEN IV 1,000 MG in EMPTY BAG 0 ML IV SCH ×2 (00:10→08:30)
[2017-12-27] MEDS: KETOROLAC TROMETHAMINE 15 MG/ML VIAL IV. SCH ×2 (00:11→06:01)
[2017-12-27] MEDS: INSULIN ASPART 100 UNITS/ML 3 ML PEN SC SCH ×3 (00:26→08:38)
[2017-12-27] MEDS: CEFAZOLIN IV 2,000 MG in SYRINGE 0 ML IV SCH (02:06)
[2017-12-27 04:00] VITALS: BP 103/58; PULSE 78; TEMP 36.4; O2SAT 94
[2017-12-27 06:02] LABS: HEMATOCRIT 29.2 % (37-47); HEMOGLOBIN 9.5 g/dL (12.0-16.0); MEAN CORPUSCULAR HGB CONC 32.5 g/dl (32-36); MEAN PLATELET VOLUME 10.3 fL (7.4-10.4); PLATELET COUNT 181 K/uL (130-400); RED CELL DISTRIBUTION WIDTH CV 15.5 % (11.5-14.5); RED CELL DISTRIBUTION WIDTH SD 50.3 fL (36.4-46.3); WHITE BLOOD COUNT 10.04 K/uL (4.8-10.8)
[2017-12-27 06:42] LABS: CALCIUM 8.3 mg/dl (8.5-10.1); CREATININE 1.92 mg/dl (0.60-1.20); POTASSIUM 4.4 mmol/L (3.5-5.1)
[2017-12-27 07:13] VITALS: BP 103/66; PULSE 83; TEMP 36.3; O2SAT 96
[2017-12-27] MEDS: DOCUSATE SODIUM 100 MG CAP PO SCH (08:34)
[2017-12-27] MEDS ORDERED: TRIAMTERENE/HCTZ 37.5/25MG CAP PO SCH (09:00)
--- NOTE | 2017-12-27 09:17 | Discharge Instructions ---
Discharge Instructions Date of Service Dec 27, 2017. Admission Reason for Admission: Right Shoulder Degenerative Joint Disease Discharge Discharge Diagnosis / Problem: R Total Shoulder Discharge Goals Goal(s): Decrease discomfort, Improve function Activity Recommendations Activity Limitations: as noted below . Instructions / Follow-Up Instructions / Follow-Up Activity and Therapy Recommendations: * Wear your sling for 3 weeks, unless otherwise instructed. You may remove your sling to shower and to dress, but otherwise, you should be in your sling at all times, including while sleeping * The shoulder replacement is very stable and you can use your hand while in the sling * Physical Therapy should start about 3-5 days from your day of surgery. Therapy will last about 8-12 weeks * You were shown a series of exercises in the hospital. Do these exercises daily including the exercises you were shown in physical therapy. Medications: * Narcotic You will likely be sent home from the hospital with a prescription for the narcotic pain medication that worked best throughout your stay. * Other medications may be prescribed for specific circumstances. If you have any questions, please call the office at . * Resume previous home medications unless otherwise instructed Dressing Care: If the incision is not draining then you may leave the roxane open to air. If there is a little bit of drainage or if the roxane are getting stuck on your clothing then cover the incision with a dry dressing. The roxane will be removed at your 2 week follow-up appointment. Showering: You may shower 5 days from the day of surgery. Let the soapy shower water run over the roxane and pat them dry. Do not scrub or soak the incision. Things To Watch For: * Drainage from the incision site that occurs more than one week after your surgery. * Increased redness at the incision site. * Fever above 102 degrees Fahrenheit. * Unusual chest pain or shortness of breath. * Call [facility] at with any of the above problems Follow-Up Visit: Follow-up with Dr. Ramos 2 weeks after your day of surgery. An appointment was probably scheduled when you signed-up for surgery in the office. If you have any questions call Office Instructions: More detailed instructions as well as Frequently Asked Questions were provided in a folder by our office when you signed-up for surgery. Please review these instructions when you get home. If you have any further questions or concerns, please feel free to call the office at [phone] Current Hospital Diet Patient's current hospital diet: Diabetes Type 2 Diet, Gluten Free Diet Discharge Diet Recommended Diet: Diabetes Type 2 Diet, Gluten Free Diet Procedures Procedures Performed: Right Total Shoulder Arthroplasty--Cemented Pending Studies Studies pending at discharge: no Laboratory Results Hemoglobin A1c Test 10/02/17 08:05 Range/Units Estimated Average Glucose 137 mg/dl Hemoglobin A1c 6.4 H 4.5-5.6 % Lipid Panel Test 10/02/17 08:05 Range/Units Triglycerides Level 190 H 0-150 mg/dl Cholesterol Level 170 0-200 mg/dl HDL Cholesterol 31 mg/dl Cholesterol/HDL Ratio 5.5 LDL Cholesterol, Calculated 101 mg/dl Medical Emergencies . Who to Call and When: Medical Emergencies: If at any time you feel your situation is an emergency, please call 911 immediately. . Non-Emergent Contact Non-Emergency issues call your: Surgeon Call Non-Emergent contact if: wound has increased drainage, wound has increased redness . "Provider Documentation" section prepared by Carroll Ramos. .
[2017-12-27] MEDS ORDERED: INSULIN GLARGINE SOLOSTAR 100 UNITS/ML 3 ML PEN SC SCH ×2 (09:30→21:00)
[2017-12-27 09:47] VITALS: BP 103/66; PULSE 83; TEMP 36.3; O2SAT 96
--- NOTE | 2017-12-27 10:27 | PROGRESS NOTE ---
DATE: 12/26/2017 CHIEF COMPLAINT: Status post right total shoulder arthroplasty postop day #1. PROGRESS: Jessica was seen and examined at bedside today. Overall, she is doing very well. She has a very little pain in the right shoulder. She was able to get some sleep last night, has no complaints. PHYSICAL EXAMINATION: Of the right shoulder, the dressing is clean and dry. She is wearing an arm sling as instructed. Her radial, median, and ulnar nerves are checked and intact at her wrist. Her axillary nerve was not checked yet. LABORATORY DATA: She has an H and H today of 9.5 and 29.2. Her glucose is 123. Her vital signs are all stable on room air and she is voiding on her own. RADIOGRAPHIC STUDIES: X-rays postoperatively of the right shoulder showed the prosthesis to be in anatomic alignment without any evidence of fracture, dislocation, or loosening. IMPRESSION: Status post right total shoulder arthroplasty postoperative day #1. PLAN: At this point, she is doing well and happy with her progress. She will be seen by physical therapy this morning for hand, wrist, elbow, and pendulum exercises. If she continues to do well, she can be discharged to home later this morning on oral pain medications.
--- NOTE | 2017-12-29 07:46 | OPERATIVE REPORT ---
DATE OF OPERATION: 12/26/2017 ADDENDUM The head size was a 42 x 18 mm eccentric head, not a 46 mm. I attest to the content of the Intraoperative Record and any orders documented therein. Any exception s are noted below.
--- NOTE | 2017-12-29 07:47 | DISCHARGE SUMMARY ---
DISCHARGE DIAGNOSIS: Primary osteoarthritis of the right shoulder. PROCEDURE: Right total shoulder arthroplasty on 12/26/[address] Carroll Ramos. DISCHARGE INSTRUCTIONS: 1. Aspirin 81 mg daily. 2. Insulin 100 units 3 times a day. 3. Insulin 23 units twice a day. 4. Zestril 40 mg daily. 5. Glucophage 1000 mg twice a day. 6. Dyazide 1 tab daily. 7. Continue all other vitamins, minerals and supplementations. 8. Right arm sling for 3 weeks. 9. Follow up with Dr. Ramos in 2 weeks. 10. Call the office of Dr. Ramos with any questions or concerns. HOSPITAL COURSE: Dionna is a pleasant 67-year-old female who presented to my office with chronic increasing right shoulder pain. X-rays and clinical examination were diagnostic for primary osteoarthritis of the right shoulder. After failing conservative treatment, she elected to undergo a right total shoulder arthroplasty. On 12/26/2017, she arrived at [facility] and underwent a right shoulder replacement without complication. She had a general anesthetic and a right interscalene nerve block. Postoperatively, she was discharged to general orthopedic floor. Her hospital course was uneventful. On postop day #1, her H and H was stable at 9.5 and 29.2. She was able to participate well with physical therapy, doing hand, wrist, elbow and pendulum exercises. Her pain was well controlled. She was subsequently discharged to home with the above instructions.
== END 2017-12-27 11:50 | disposition home or self-care (01) | DRG 483 ==
LOC: C.ACU 07:04 → C.3E 08:30 → ENRESERV 12:11
PROVIDERS: ADMIT Orthopaedic Surgery; ATTEND Orthopaedic Surgery
PROC: 0RRJ0JZ Replacement of Right Shoulder Joint with Synthetic Substitute, Open Approach (ICD-10-PCS; principal; 2017-12-26 09:10)
DX: M19.011 Primary osteoarthritis, right shoulder (principal); Z68.41 Body mass index [BMI] 40.0-44.9, adult; E11.42 Type 2 diabetes mellitus with diabetic polyneuropathy; E11.22 Type 2 diabetes mellitus with diabetic chronic kidney disease; I12.9 Hypertensive chronic kidney disease with stage 1 through stage 4 chronic kidney disease, or unspecified chronic kidney disease; N18.9 Chronic kidney disease, unspecified; G47.33 Obstructive sleep apnea (adult) (pediatric); E66.01 Morbid (severe) obesity due to excess calories; Z85.3 Personal history of malignant neoplasm of breast; Z92.3 Personal history of irradiation; Z79.4 Long term (current) use of insulin; Z79.82 Long term (current) use of aspirin; Z79.899 Other long term (current) drug therapy; Z88.0 Allergy status to penicillin; Z88.8 Allergy status to other drugs, medicaments and biological substances; Z91.018 Allergy to other foods; Z90.710 Acquired absence of both cervix and uterus; Z98.890 Other specified postprocedural states; Z83.3 Family history of diabetes mellitus; Z82.49 Family history of ischemic heart disease and other diseases of the circulatory system

== ENCOUNTER → 2018-01-19 | Outpatient (CLI) | payer OTHER ==
[~2018-01-19] MED LIST changes: -ACETAMINOPHEN 500 MG TAB PO SCH; -CEFAZOLIN 2000MG IV PUSH 15 ML IV SCH; -FAMOTIDINE 20 MG TAB PO SCH; -GABAPENTIN 300 MG CAP PO SCH; -LACTATED RINGER'S 1000ML 1,000 ML IV SCH; -LACTATED RINGER'S 1000ML IV SCH; +NVLG SQ; -NVLGI7030 SC; -ROPIVACAINE 0.5% 5 MG/ML 30 ML VIAL ONE; -ROPIVACAINE 5MG/ML 30 ML 150 MG, BUPIVACAINE 0.5% MPF INJ 30 ML, EpINEphrine HCL INJ 0.... INFIL SCH; -TRANEXAMIC ACID INJ 1,000 MG x 2 Bags IV SCH
--- NOTE | 2018-01-19 13:42 | DIAGNOSTIC IMAGING REPORT ---
EXAMINATION: RENAL ULTRASOUND CLINICAL HISTORY: N28.9 Acute renal insufficiency COMPARISON STUDY: 12/31/2011 FINDINGS: The right kidney measures 9.4 cm. The left kidney measures 11.3 cm. There is no evidence of hydronephrosis. There is an 8 mm mid pole right renal cyst. No bladder abnormalities are visualized. Bilateral ureteral jets were visualized. There is increased hepatic echogenicity, nonspecific finding often seen in hepatic steatosis IMPRESSION : 1. 8 mm right renal cyst 2. No evidence of hydronephrosis 3. Hepatic steatosis Electronically signed by: Lucio Ferraro M.D. 01/19/2018 1:41 PM Dictated Date/Time: 01/19/2018 1:40 PM
== END | disposition home or self-care (01) ==
LOC: C.ULTR 12:45
PROVIDERS: ATTEND Internal Medicine Nephrology
DX: N28.1 Cyst of kidney, acquired (principal); K76.0 Fatty (change of) liver, not elsewhere classified

== ENCOUNTER → 2018-05-01 | Outpatient (CLI) | payer OTHER ==
[~2018-05-01] MED LIST changes: +GLC/500 PO; -METF1000 PO
[2018-05-01 13:51] LABS: BLOOD UREA NITROGEN 33 mg/dl (7-18); CALCIUM 9.2 mg/dl (8.5-10.1); CARBON DIOXIDE 26 mmol/L (21-32); CREATININE 1.58 mg/dl (0.60-1.20); GLUCOSE 106 mg/dl (70-99); POTASSIUM 4.3 mmol/L (3.5-5.1); SODIUM 136 mmol/L (136-145)
== END | disposition home or self-care (01) ==
LOC: C.LABPVFM 11:02
PROVIDERS: ATTEND Nurse Practitioner Adult Health
DX: Z00.00 Encounter for general adult medical examination without abnormal findings (principal); E11.49 Type 2 diabetes mellitus with other diabetic neurological complication; Z79.4 Long term (current) use of insulin; E11.22 Type 2 diabetes mellitus with diabetic chronic kidney disease; N18.3 Chronic kidney disease, stage 3 (moderate)

== ENCOUNTER 2019-08-08 08:26 | Observation (INO) ==
[2019-08-08] MEDS ORDERED: ONDANSETRON INJ 2 MG/ML 2 ML VIAL IV STA (08:38)
[2019-08-08] MEDS ORDERED: MoRPHine SULFATE 4 MG/ML 1 ML CARP\\VIAL IV STA (08:38)
[2019-08-08] MEDS ORDERED: SODIUM CHLORIDE 0.9% 1000ML 1,000 ML IV ONE (08:39)
--- NOTE | 2019-08-08 09:00 | Emergency Department Note ---
Entered by Sherry De La Torre acting as a scribe for History of Present Illness General Chief complaint: Referred by Doctor Stated complaint: PAINFUL HERNIA Time Seen by Provider: 08/08/19 08:34 Source: patient History of Present Illness Onset (ago): hour(s) (this morning) Location: abdomen (periumbilical) Pain Consistency: + other (episode) Maximum Pain Intensity: 9 Quality: + other (pain secondary to hernia) Associated symptoms: + other (vomiting) The patient is a 68 year old female that is presenting to the Emergency Room with complaints of an episode of abdominal pain secondary to an umbilical hernia that started this morning. The patient reports that she has had the hernia since 2008 but states that the pain is worse this morning than in the past. She notes that the hernia is harder than normal. She states that she has been vomiting but she is unsure if it started before or after the pain. She denies any past operations on the hernia. She notes that she is diabetic and that her blood glucose levels have been in and out of control. She states that she did not take her insulin this morning. She denies having any food or drink today. The patient denies taking any blood thinners. Home Medications Home Medications Medication Instructions Recorded Confirmed Type insulin glargine 100 unit/mL (3 23 units SUBCUT BID #3 ml 03/13/19 03/13/19 History mL) subcutaneous pen lancets #50 ea 03/13/19 03/13/19 History lisinopril 40 mg tablet 40 mg PO DAILY #90 tab 03/13/19 03/13/19 History meclizine 25 mg tablet 25 mg PO .COMPLEX PRN tab 03/13/19 03/13/19 History nystatin-triamcinolone 100,000 1 appln TOPICAL .COMPLEX PRN gm 03/13/19 03/13/19 History unit/g-0.1 % topical cream pen needle, diabetic 32 gauge x #10 ea 03/13/19 03/13/19 History /32" insulin aspart U-100 100 unit/mL 22 units SUBCUT DAILY 90 Days #45 04/22/19 Rx (3 mL) subcutaneous pen ml MDD 40 units with sliding scale triamterene 37.5 1 cap PO DAILY #90 cap 04/22/19 Rx mg-hydrochlorothiazide 25 mg capsule insulin glargine 100 unit/mL (3 See Rx Instructions SQ DAILY #30 ml 06/16/19 Rx mL) subcutaneous pen [employer] SystemsTouch Ultra Blue Test Strip #400 ea NS 07/22/19 Rx Allergies Allergy/AdvReac Type Severity Reaction Status Date / Time Penicillins Allergy Intermediate BODY RASH Verified 03/25/19 13:57 dapagliflozin Allergy Unknown unable to Verified 03/25/19 13:57 function wheat Allergy Unknown body Verified 03/25/19 13:57 rejects levofloxacin [From Levaquin] Allergy Verified 03/25/19 13:57 pollen extracts AdvReac Verified 03/25/19 13:57 Dust Allergy Unknown DUST AND Uncoded 03/25/19 13:57 POLLEN = SNEEZING Past Med/Surg History Medical History Chronic kidney disease, stage III (moderate) (Acute) Dyslipidemia (Acute) Hypertension (Acute) Obesity, morbid, BMI 40.0-49.9 (Acute) Obstructive sleep apnea (Acute) Family History Other Coronary heart disease Hypertension Kidney disease Social History Preferred Language: Turkmen Communication Ability: Effective Director Community Organization Required: No Beliefs That Will Affect Care: None Current Living Situation: Alone Other Information That Helps Us Care for You: No Feels Safe at Home: Yes Safety Concerns: Feels Safe At This Time Smoking Status: Never smoker Do You Dip or Chew Tobacco: No ; Second Hand Exposure: No ; Tobacco Cessation Education Requested by Patient: No Hx Alcohol Use: No Hx Substance Use: No Review of Systems See HPI for pertinent positives & negatives. and A total of 10 systems reviewed and were otherwise negative Physical Exam Vital Signs Vital Signs - 24 hr 08/08/19 08:29 08/08/19 08:57 08/08/19 09:44 Temperature 36.5 C Temperature Source Oral Pulse Rate 51 L Pulse Rate [Apical] Pulse Rate [Right Finger] 92 H 78 Pulse Rhythm [Apical] Respiratory Rate 24 20 20 Respiratory Effort / Characteristics Non-Labored Non-Labored Respiratory Depth Normal Normal Respiratory Pattern Blood Pressure 224/71 H Blood Pressure [Right Arm] 205/67 H 159/75 H Blood Pressure Mean 122 Blood Pressure Mean [Right Arm] 113 103 Blood Pressure Position [Right Arm] Pulse Oximetry 98 99 99 Oxygen Delivery Method Room Air Room Air Room Air Oxygen Flow Rate Sepsis Recent Fever Within 48 Hours No Sepsis New/Unexplained Change in Mental Status No Sepsis Action Taken by Nursing No Action Required 08/08/19 10:15 08/08/19 11:49 08/08/19 11:55 Temperature 36.6 C Temperature Source Temporal Artery Scan Pulse Rate Pulse Rate [Apical] 100 H 99 H Pulse Rate [Right Finger] 96 H Pulse Rhythm [Apical] Regular Regular Respiratory Rate 20 12 18 Respiratory Effort / Characteristics Non-Labored Spontaneous Non-Labored Spontaneous Respiratory Depth Normal Normal Respiratory Pattern Regular Regular Blood Pressure Blood Pressure [Right Arm] 173/65 H 129/70 142/72 H Blood Pressure Mean Blood Pressure Mean [Right Arm] 101 89 95 Blood Pressure Position [Right Arm] Lying Lying Pulse Oximetry 97 100 100 Oxygen Delivery Method Room Air Oxymask Oxymask Oxygen Flow Rate 10 10 Sepsis Recent Fever Within 48 Hours Sepsis New/Unexplained Change in Mental Status Sepsis Action Taken by Nursing 08/08/19 12:05 08/08/19 12:15 08/08/19 12:25 Temperature 36.8 C Temperature Source Temporal Artery Scan Pulse Rate Pulse Rate [Apical] 96 H 92 H 88 Pulse Rate [Right Finger] Pulse Rhythm [Apical] Regular Regular Regular Respiratory Rate 17 17 15 Respiratory Effort / Characteristics Non-Labored Spontaneous Non-Labored Spontaneous Non-Labored Spontaneous Respiratory Depth Normal Normal Normal Respiratory Pattern Regular Regular Regular Blood Pressure Blood Pressure [Right Arm] 159/70 H 158/77 H 156/80 H Blood Pressure Mean Blood Pressure Mean [Right Arm] 99 104 105 Blood Pressure Position [Right Arm] Lying Lying Lying Pulse Oximetry 100 96 94 Oxygen Delivery Method Oxymask Room Air Room Air Oxygen Flow Rate 10 Sepsis Recent Fever Within 48 Hours Sepsis New/Unexplained Change in Mental Status Sepsis Action Taken by Nursing 08/08/19 12:35 08/08/19 12:45 Temperature 36.8 C 36.8 C Temperature Source Temporal Artery Scan Temporal Artery Scan Pulse Rate Pulse Rate [Apical] 86 86 Pulse Rate [Right Finger] Pulse Rhythm [Apical] Regular Regular Respiratory Rate 15 15 Respiratory Effort / Characteristics Non-Labored Spontaneous Non-Labored Spontaneous Respiratory Depth Normal Normal Respiratory Pattern Regular Regular Blood Pressure Blood Pressure [Right Arm] 160/65 H 145/73 H Blood Pressure Mean Blood Pressure Mean [Right Arm] 96 97 Blood Pressure Position [Right Arm] Lying Lying Pulse Oximetry 94 97 Oxygen Delivery Method Room Air Room Air Oxygen Flow Rate Sepsis Recent Fever Within 48 Hours Sepsis New/Unexplained Change in Mental Status Sepsis Action Taken by Nursing General: Uncomfortable appearing middle-aged female in no acute distress. HEENT: Normal cephalic atraumatic. Pupils are equal round and reactive to light. Extraocular movements are intact. Oropharynx is pink with moist mucous membranes. No swelling of the mouth lips or tongue. Neck: Supple with a midline trachea. No meningeal signs or stiffness, no JVD or bruits. No Stridor. Chest: Clear to auscultation bilaterally. No wheezes or rhonchi. No increased work of breathing. Heart: regular rate and rhythm. Abdomen: Large umbilical hernia that is indurated and non-reducible. Some central discoloration but no redness or warmth. Extremities: No cyanosis clubbing or edema. No calf tenderness or asymmetry Spine/Back. Non tender to palpation. No CVA tenderness Skin: Good turgor without rashes. Neurologic exam: Cranial nerves two through 12 are intact. Motor and sensation are intact and symmetrical throughout. Course Course 0837:The patient was evaluated in room B03B. A complete history and physical examination was performed. 0848: I discussed the patients case with Dr. Stovall, General Surgery, who will evaluate the patient in the ED. 0852: I reevaluated the patient. She is experiencing significant pain and is receiving IV medications at this time. 0925: An NG tube is being placed at this time and the patient will be moved to the OR. 0934: X-ray ordered at this time to evaluate the placement of her NG tube. Nursing staff reports that the patient vomited during placement. 1015: Patient has been taken to the OR for surgical management of her hernia. Administered Medications Discontinued Medications Bupivacaine HCl (Marcaine 0.5% Mpf) Confirm Administered Dose 30 ml .ROUTE .STK- MED ONE Stop: 08/08/19 10:32 Last Admin: 08/08/19 11:15 Dose: 20 ml Documented by: [id number] Epinephrine HCl (Epinephrine) Confirm Administered Dose 1 mg .ROUTE .STK-MED ONE Stop: 08/08/19 10:32 Last Admin: 08/08/19 11:15 Dose: 0.15 mg Documented by: [id number] Sodium Chloride (Nss 1000ml) 1,000 mls @ 999 mls/hr IV .Q1H1M ONE Stop: 08/08/19 09:39 Last Admin: 08/08/19 09:01 Dose: 999 mls/hr Documented by: [id number] Clindamycin Phosphate 900 mg/ (Dextrose) 56 mls @ 112 mls/hr IV ONCE ONE Stop: 08/08/19 12:20 Last Admin: 08/08/19 11:00 Dose: 112 mls/hr Documented by: [id number] Morphine Sulfate (Morphine Sulfate) 4 mg IV NOW STA Stop: 08/08/19 08:39 Last Admin: 08/08/19 09:01 Dose: 4 mg Documented by: [id number] Ondansetron HCl (Zofran) 4 mg IV NOW STA Stop: 08/08/19 08:39 Last Admin: 08/08/19 09:01 Dose: 4 mg Documented by: [id number] Medical Decision Making Differential Diagnosis Differential diagnosis: Etiologies such as umbilical hernia, incarcerated hernia, electrolyte or metabolic abnormalities, infection as well as others were entertained. Medical Records Attestation: I reviewed the patient's medical records. Home Medications Current Medication List: was personally reviewed by me Laboratory Data Attestation: I reviewed the patient's lab results. Result diagrams: 08/08/19 09:57 08/08/19 09:57 Lab Results 08/08/19 08/08/19 08/08/19 Range/Units 08:44 09:57 09:57 WBC 7.11 (4.8-10.8) K/uL RBC 3.91 L (4.2-5.4) M/uL Hgb 12.0 (12.0-16.0) g/dL Hct 35.9 L (37-47) % MCV 91.8 (80-100) fL MCH 30.7 (25-34) pg MCHC 33.4 (32-36) g/dL RDW Std Deviation 51.5 H (36.4-46.3) fL RDW Coeff of Evonne 15.4 H (11.5-14.5) % Plt Count 150 (130-400) K/uL MPV 10.7 H (7.4-10.4) fL Immature Gran % (Auto) 0.4 % Neut % (Auto) 89.5 % Lymph % (Auto) 5.9 % Douglas % (Auto) 3.2 % Eos % (Auto) 1.0 % Baso % (Auto) 0.0 % Immature Gran # (Auto) 0.03 H (0.00-0.02) K/uL Neut # (Auto) 6.36 (1.4-6.5) K/uL Lymph # (Auto) 0.42 L (1.2-3.4) K/uL Douglas # (Auto) 0.23 (0.11-0.59) K/uL Eos # (Auto) 0.07 (0-0.5) K/uL Baso # (Auto) 0.00 (0-0.2) K/uL PT 10.1 (9.0-12.0) Seconds INR 1.0 (0.9-1.1) Sodium (136-145) mmol/L Potassium (3.5-5.1) mmol/L Chloride (98-107) mmol/L Carbon Dioxide (21-32) mmol/L Anion Gap (3-11) BUN (7-18) mg/dl Creatinine (0.6-1.2) mg/dl Est Cr Clr Drug Dosing ml/min Est GFR ( Amer) Est GFR (Non-Af Amer) BUN/Creatinine Ratio (10-20) Glucose (70-99) mg/dl POC Glucose 197 H (70-99) Calcium (8.5-10.1) mg/dl Total Bilirubin (0.2-1) mg/dl AST (15-37) U/L ALT (12-78) U/L Alkaline Phosphatase (45-117) U/L Total Protein (6.4-8.2) gm/dl Albumin (3.4-5.0) gm/dl Globulin (2.5-4.0) gm/dl Albumin/Globulin Ratio (0.9-2) Lipase (73-393) U/L 08/08/19 08/08/19 Range/Units 09:57 11:57 WBC (4.8-10.8) K/uL RBC (4.2-5.4) M/uL Hgb (12.0-16.0) g/dL Hct (37-47) % MCV (80-100) fL MCH (25-34) pg MCHC (32-36) g/dL RDW Std Deviation (36.4-46.3) fL RDW Coeff of Evonne (11.5-14.5) % Plt Count (130-400) K/uL MPV (7.4-10.4) fL Immature Gran % (Auto) % Neut % (Auto) % Lymph % (Auto) % Douglas % (Auto) % Eos % (Auto) % Baso % (Auto) % Immature Gran # (Auto) (0.00-0.02) K/uL Neut # (Auto) (1.4-6.5) K/uL Lymph # (Auto) (1.2-3.4) K/uL Douglas # (Auto) (0.11-0.59) K/uL Eos # (Auto) (0-0.5) K/uL Baso # (Auto) (0-0.2) K/uL PT (9.0-12.0) Seconds INR (0.9-1.1) Sodium 139 (136-145) mmol/L Potassium 4.3 (3.5-5.1) mmol/L Chloride 107 (98-107) mmol/L Carbon Dioxide 26 (21-32) mmol/L Anion Gap 6.0 (3-11) BUN 27 H (7-18) mg/dl Creatinine 1.44 H (0.6-1.2) mg/dl Est Cr Clr Drug Dosing 46.3 ml/min Est GFR ( Amer) 43.1 Est GFR (Non-Af Amer) 37.2 BUN/Creatinine Ratio 18.5 (10-20) Glucose 189 H (70-99) mg/dl POC Glucose 178 H (70-99) Calcium 9.3 (8.5-10.1) mg/dl Total Bilirubin 0.3 (0.2-1) mg/dl AST 15 (15-37) U/L ALT 21 (12-78) U/L Alkaline Phosphatase 94 (45-117) U/L Total Protein 7.6 (6.4-8.2) gm/dl Albumin 3.5 (3.4-5.0) gm/dl Globulin 4.1 H (2.5-4.0) gm/dl Albumin/Globulin Ratio 0.8 L (0.9-2) Lipase 105 (73-393) U/L Imaging Data Radiologist's Impression: Radiology results as stated below per my review and the radiologist's interpretation: CT abd pelvis wo con CT DOSE: 1342.94 mGy.cm HISTORY: Hernia eval for umbilical hernia TECHNIQUE: Multiaxial CT images of the abdomen and pelvis were performed without contrast. A dose lowering technique was utilized adhering to the principles of ALARA. COMPARISON STUDY: None. FINDINGS: Lung bases are clear. Small cyst medial aspect anterior right hepatic lobe. Liver spleen and pancreas are otherwise unremarkable. Right kidney is atrophic. Left kidney shows mild cortical scarring. The bowel pattern is considered nonobstructive. There are 2 periumbilical hernias. These measure 3 and 4 cm respectively in maximum transaxial dimension. There are periumbilical in location. The contain fat exclusively. There is no evidence for bowel containment or incarceration. : Pattern shows several scattered diverticuli. There is no evidence for diverticulitis. There is no free fluid within the pelvic cul-de-sac. IMPRESSION: 1. 2 Anterior ventral periumbilical hernias. 2. These contain fat exclusively with no evidence for bowel containment or incarceration.. 3. Remainder the study is unremarkable. 4. The bowel pattern is nonobstructive. 5. Atrophy right kidney. The above report was generated using voice recognition software. It may contain grammatical, syntax or spelling errors. Electronically signed by: Sae Walker M.D. 08/08/2019 9:38 AM XR chest 1V portable CLINICAL HISTORY: ngt placement confirmation tube position COMPARISON STUDY: 02/18/2019 FINDINGS: Lungs are clear. Diaphragms are smooth. There is a nasogastric tube within the gastric fundus. IMPRESSION: Nasogastric tube within the gastric fundus. Otherwise negative chest. The above report was generated using voice recognition software. It may contain grammatical, syntax or spelling errors. Electronically signed by: Sae Walker M.D. 08/08/2019 9:53 AM ECG Data Attestation: I personally reviewed and interpreted this ECG as follows: Indication: + abdominal pain Rate (beats per minute): 85 Rhythm: + normal sinus ECG Intervals/blocks: + Prolonged QT (mildly at 490) ECG ST segments: no ST elevation ECG Findings: + Other (sinus arrhythmia) Comparison ECG Date: from (11/30/18) Change: the following changes noted (QT is prolonged) Blood Pressure Blood Pressure Findings: Elevated blood pressure Blood Pressure Disposition: elevated BP felt to be situational MDM Narrative This patient comes in as described above. She has a known umbilical hernia that abruptly got worse around 5 in the morning. She appears very uncomfortable on exam. She tells me she has had nausea and vomiting as well. On exam, her umbilical hernia is very indurated and not reducible. She does have some central discoloration but no redness or warmth. I was very concerned about an incarcerated hernia. She is a diabetic. I did order blood work including BSG. IV access was established she was hydrated normal saline and was given morphine 4 mgs IV and Zofran 4 mg IV for pain and nausea management. I did order a noncontrast CT as well and I discussed the case with Dr. Stovall the surgeon on-call as I feel she will likely need to go to the OR. Dr. Stovall saw her promptly and is going to take her to the operating room. Her hernia did seem to get much softer and her pain got much better after the morphine and on exam is not nearly as indurated. CAT scan does demonstrate a hernia which at this point may not be incarcerated. She has no fever or white count. She will be taken to the operating room for operative repair. Impression & Plan Incarcerated umbilical hernia, Abdominal pain, Nausea and vomiting, Diabetes mellitus Discharge Plan Visit Data Chief Complaint: Referred by Doctor Stated Complaint: PAINFUL HERNIA ED Provider: Carroll Vazquez Discharge Problem: Incarcerated umbilical hernia, Abdominal pain, Nausea and vomiting, Diabetes mellitus Patient Disposition: Being Evaluated by Surgeon Discharge Instructions Interventions: ED Discharge Assessment Last Done: 08/08/19 10:16 Discharge Problem: Abdominal pain Qualifiers: Abdominal location: periumbilical Qualified Code(s): R10.33 - Periumbilical pain Nausea and vomiting Qualifiers: Vomiting type: unspecified Vomiting Intractability: unspecified Qualified Code(s): R11.2 - Nausea with vomiting, unspecified Diabetes mellitus Qualifiers: Diabetes mellitus type: type 2 Diabetes mellitus penitentiary insulin use: with long term acute care registered nurse use Diabetes mellitus complication status: without complication Qualified Code(s): E11.9 - Type 2 diabetes mellitus without complications The scribe's documentation has been prepared under my direction and personally reviewed by me in its entirety. I confirm that the note above accurately reflects all work, treatment, procedures, and medical decision making performed by me.
--- NOTE | 2019-08-08 09:28 | History & Physical Report ---
Date of Service August 08, 2019 Assessment & Plan (1) Incarcerated umbilical hernia: CT scan pending will plan OR repair today Hospital consult for medical issues Present on Admission?: Yes (2) Obstructive sleep apnea: Present on Admission?: Yes (3) Hypertension: Present on Admission?: Yes (4) Dyslipidemia: Present on Admission?: Yes (5) Chronic kidney disease, stage III (moderate): Present on Admission?: Yes (6) Diabetes: Present on Admission?: Yes History of Present Illness Primary Care Provider: Brooke Fuentes MD The patient is a 68 year old female that presents to the ED with complaints of an episode of abdominal pain secondary to a known umbilical hernia that started this morning. She has been vomiting since this morning. She denies fever or chills. She is diabetic and that her blood glucose levels have been in and out of control. She states that she did not take her insulin this morning. She denies having any food or drink today. The patient denies taking any blood thinners. Allergies Allergy/AdvReac Type Severity Reaction Status Date / Time Penicillins Allergy Intermediate BODY RASH Verified 03/25/19 13:57 dapagliflozin Allergy Unknown unable to Verified 03/25/19 13:57 function wheat Allergy Unknown body Verified 03/25/19 13:57 rejects levofloxacin [From Levaquin] Allergy Verified 03/25/19 13:57 pollen extracts AdvReac Verified 03/25/19 13:57 Dust Allergy Unknown DUST AND Uncoded 03/25/19 13:57 POLLEN = SNEEZING Home Medications Home Medications Medication Instructions Recorded Confirmed Type insulin glargine 100 unit/mL (3 23 units SUBCUT BID #3 ml 03/13/19 03/13/19 History mL) subcutaneous pen lancets #50 ea 03/13/19 03/13/19 History lisinopril 40 mg tablet 40 mg PO DAILY #90 tab 03/13/19 03/13/19 History meclizine 25 mg tablet 25 mg PO .COMPLEX PRN tab 03/13/19 03/13/19 History nystatin-triamcinolone 100,000 1 appln TOPICAL .COMPLEX PRN gm 03/13/19 03/13/19 History unit/g-0.1 % topical cream pen needle, diabetic 32 gauge x #10 ea 03/13/19 03/13/19 History " insulin aspart U-100 100 unit/mL 22 units SUBCUT DAILY 90 Days #45 04/22/19 Rx (3 mL) subcutaneous pen ml MDD 40 units with sliding scale triamterene 37.5 1 cap PO DAILY #90 cap 04/22/19 Rx mg-hydrochlorothiazide 25 mg capsule insulin glargine 100 unit/mL (3 See Rx Instructions SQ DAILY #30 ml 06/16/19 Rx mL) subcutaneous pen OneTouch Ultra Blue Test Strip #400 ea NS 07/22/19 Rx Past Med/Surg History Medical History Chronic kidney disease, stage III (moderate) (Acute) Dyslipidemia (Acute) Hypertension (Acute) Obesity, morbid, BMI 40.0-49.9 (Acute) Obstructive sleep apnea (Acute) Family History Other Coronary heart disease Hypertension Kidney disease Social History Preferred Language: Italian Beliefs That Will Affect Care: None Feels Safe at Home: Yes Smoking Status: Never smoker Review of Systems + weakness; no fever and no chills + dyspnea on exertion; no cough and no dyspnea no chest pain, no radiating jaw, neck or arm pain and no dyspnea + abdominal pain, + nausea and + vomiting; no change in bowel habits, no constipation and no diarrhea/loose stools no dysuria and no urinary urgency no back pain and no joint pain + generalized weakness; no localized weakness no behavioral changes + fatigue; no polydipsia and no polyphagia no easy bleeding no problem reported Physical Exam Constitutional: well developed, well nourished and + morbidly obese Neck: trachea midline Respiratory: normal respiratory effort, lungs clear to auscultation no respiratory distress Cardiovascular: RRR, no murmur, no edema Gastrointestinal (Abdomen): Inspection/Auscultation: normal bowel sounds; abdomen not distended Percussion/Palpation: + abdomen tender, abdomen soft and + hernia (incarcerated with tenderness and some erythema); no guarding ASA Classification ASA [id number] Results & Data Vital Signs (Past 12 Hours) Vital Signs Temp Pulse Pulse Resp BP BP Pulse Ox 08/08/19 08:57 92 H 20 205/67 H 99 08/08/19 08:29 36.5 C 51 L 24 224/71 H 98 Code Status & VTE Plan Code Status Full Code VTE Prophylaxis Plan VTE Prophylaxis will be ordered: Yes
--- NOTE | 2019-08-08 09:40 | CT Scan Report ---
CT abd pelvis wo con CT DOSE: 1342.94 mGy.cm HISTORY: Hernia eval for umbilical hernia TECHNIQUE: Multiaxial CT images of the abdomen and pelvis were performed without contrast. A dose lo wering technique was utilized adhering to the principles of ALARA. COMPARISON STUDY: None. FINDINGS: Lung bases are clear. Small cyst medial aspect anterior right hepatic lobe. Liver spleen an d pancreas are otherwise unremarkable. Right kidney is atrophic. Left kidney shows mild cortical scarring. The bowel pattern is considered nonobstructive. There are 2 periumbilical hernias. These measure 3 an d 4 cm respectively in maximum transaxial dimension. There are periumbilical in location. The contain fat exclusively. There is no evidence for bowel containment or incarceration. : Pattern shows several scattered diverticuli. There is no evidence for diverticulitis. There is no f ree fluid within the pelvic cul-de-sac. IMPRESSION: 1. 2 Anterior ventral periumbilical hernias. 2. These contain fat exclusively with no evidence for bowel containment or incarceration.. 3. Remainder the study is unremarkable. 4. The bowel pattern is nonobstructive. 5. Atrophy right kidney. The above report was generated using voice recognition software. It may contain grammatical, syntax or spelling errors. Electronically signed by: Sae Walker M.D. 08/08/2019 9:38 AM
[2019-08-08] MEDS ORDERED: PROPOFOL IV EMULSION 10 MG/ML 20 ML VIAL IV ONE (09:48)
[2019-08-08] MEDS ORDERED: LIDOCAINE 2% 20 MG/ML 5 ML SYR IV ONE (09:49)
[2019-08-08] MEDS ORDERED: SUCCINYLCHOLINE CHLORIDE 20 MG/ML 10 ML VIAL ONE (09:50)
[2019-08-08] MEDS ORDERED: ROCURONIUM BROMIDE 10 MG/ML 5 ML VIAL ONE (09:51)
--- NOTE | 2019-08-08 09:55 | XRay Report ---
XR chest 1V portable CLINICAL HISTORY: ngt placement confirmation tube position COMPARISON STUDY: 02/18/2019 FINDINGS: Lungs are clear. Diaphragms are smooth. There is a nasogastric tube within the gastric fund us. IMPRESSION: Nasogastric tube within the gastric fundus. Otherwise negative chest. The above report was generated using voice recognition software. It may contain grammatical, syntax or spelling errors. Electronically signed by: Sae Walker M.D. 08/08/2019 9:53 AM
[2019-08-08 10:08] LABS: Eosinophils # (auto) 0.07 K/uL (0-0.5); Hematocrit (blood only) 35.9 % (37-47); Immature Granulocytes # (auto) 0.03 K/uL (0.00-0.02); Immature Granulocytes % (auto) 0.4 %; Lymphocytes # (auto) 0.42 K/uL (1.2-3.4); Lymphocytes % (auto) 5.9 %; Mean Corpuscular Hemoglobin 30.7 pg (25-34); Mean Corpuscular Hgb Conc 33.4 g/dL (32-36); Mean Corpuscular Volume 91.8 fL (80-100); Mean Platelet Volume 10.7 fL (7.4-10.4); Monocytes # (auto) 0.23 K/uL (0.11-0.59); Monocytes % (auto) 3.2 %; Neutrophils # (auto) 6.36 K/uL (1.4-6.5); Neutrophils % (auto) 89.5 %; Platelet Count 150 K/uL (130-400); RDW Coefficient of Variation 15.4 % (11.5-14.5); RDW Standard Deviation 51.5 fL (36.4-46.3); Red Blood Count 3.91 M/uL (4.2-5.4); White Blood Count 7.11 K/uL (4.8-10.8)
[2019-08-08 10:17] LABS: Prothrombin Time 10.1 Seconds (9.0-12.0)
--- NOTE | 2019-08-08 10:22 | Anesthesiology Consultation ---
Date of Service August 08, 2019 Assessment & Plan (1) Encounter for pre-operative examination: History Surgery Operation Date: 08/08/19 11:00 Proposed Procedures p Umbilical Hernia Repair - Jarrod Stovall MD Height/Weight Height: 5 ft 6 in Weight: 107.1 kg Allergies Allergy/AdvReac Type Severity Reaction Status Date / Time Penicillins Allergy Intermediate BODY RASH Verified 03/25/19 13:57 dapagliflozin Allergy Unknown unable to Verified 03/25/19 13:57 function wheat Allergy Unknown body Verified 03/25/19 13:57 rejects levofloxacin [From Levaquin] Allergy Verified 03/25/19 13:57 pollen extracts AdvReac Verified 03/25/19 13:57 Dust Allergy Unknown DUST AND Uncoded 03/25/19 13:57 POLLEN = SNEEZING Medications Home Medications Medication Instructions Recorded Confirmed Last Taken insulin glargine 100 unit/mL (3 23 units SUBCUT BID #3 ml 03/13/19 03/13/19 Unkn own mL) subcutaneous pen lancets #50 ea 03/13/19 03/13/19 Unknown lisinopril 40 mg tablet 40 mg PO DAILY #90 tab 03/13/19 03/13/19 Unknown meclizine 25 mg tablet 25 mg PO .COMPLEX PRN tab 03/13/19 03/13/19 Unknown nystatin-triamcinolone 100,000 1 appln TOPICAL .COMPLEX PRN gm 03/13/19 03/13/19 Unknown unit/g-0.1 % topical cream pen needle, diabetic 32 gauge x #10 ea 03/13/19 03/13/19 Unknown 5/32" insulin aspart U-100 100 unit/mL 22 units SUBCUT DAILY 90 Days #45 04/22/19 Unknown (3 mL) subcutaneous pen ml MDD 40 units with sliding scale triamterene 37.5 1 cap PO DAILY #90 cap 04/22/19 Unknown mg-hydrochlorothiazide 25 mg capsule insulin glargine 100 unit/mL (3 See Rx Instructions SQ DAILY #30 ml 06/16/19 Unknown mL) subcutaneous pen OneTouch Ultra Blue Test Strip #400 ea NS 07/22/19 Unknown NPO Date Last Intake of Fluids: 08/07/19 Time Last Intake of Fluids: 17:00 Last Intake of Fluids Comment: 08/07/19 Date Last Intake of Solids: 08/07/19 Time Last Intake of Solids: 17:00 Past Medical History Medical History Chronic kidney disease, stage III (moderate) (Acute) Dyslipidemia (Acute) Hypertension (Acute) Obesity, morbid, BMI 40.0-49.9 (Acute) Obstructive sleep apnea (Acute) Past Family History Family History Other Coronary heart disease Hypertension Kidney disease Social History Smoking Status: Never smoker Do You Dip or Chew Tobacco: No Hx Alcohol Use: No Hx Substance Use: No substance use type: does not use Physical Exam Vital Signs Last Vital Signs Temp 36.5 C 08/08/19 08:29 Pulse 96 H 08/08/19 10:15 Resp 20 08/08/19 10:15 BP 173/65 H 08/08/19 10:15 Pulse Ox 97 08/08/19 10:15 Testing Laboratory Results 08/08/19 09:57 PT 10.1 Seconds (9.0-12.0) 08/08/19 09:57 INR 1.0 (0.9-1.1) 08/08/19 09:57 08/08/19 08:44 POC Glucose 197 H Electrocardiogram Date: 08/08/19 sinus rhythm with marked sinus arrhythmia
[2019-08-08 10:26] LABS: Albumin Level 3.5 gm/dl (3.4-5.0); BUN Creatinine Ratio 18.5 (10-20); Calcium 9.3 mg/dl (8.5-10.1); Creatinine Clr Calc Pharmacy 46.3 ml/min; Est GFR (African American) 43.1; Est GFR (Non-African American) 37.2; Potassium 4.3 mmol/L (3.5-5.1)
[2019-08-08 10:29] LABS: Albumin Globulin Ratio 0.8 (0.9-2); Bilirubin,Total 0.3 mg/dl (0.2-1); Globulin 4.1 gm/dl (2.5-4.0); Total Protein 7.6 gm/dl (6.4-8.2)
[2019-08-08] MEDS ORDERED: BUPIVACAINE 0.5 % 5 MG/1 ML MPF 30ML VIAL ONE (10:31)
[2019-08-08] MEDS ORDERED: EPINEPHrine INJ 1 MG/ML AMP ONE (10:31)
[2019-08-08] MEDS ORDERED: MIDAZOLAM HCL 1 MG/ML 2ML VIAL ONE (10:33)
[2019-08-08] MEDS ORDERED: fentaNYL citrate 100 MCG/2 ML VIAL ONE ×2 (10:33→11:13)
[2019-08-08] MEDS ORDERED: CLINDAMYCIN PHOS 300 MG/2 ML VIAL ONE (11:01)
[2019-08-08] MEDS ORDERED: ONDANSETRON INJ 2 MG/ML 2 ML VIAL ONE ×2 (11:16→11:17)
[2019-08-08] MEDS ORDERED: NEOSTIGMINE METHYLSULFATE 5 MG/5 ML SYR ONE (11:25)
[2019-08-08] MEDS ORDERED: GLYCOPYRROLATE 0.2 MG/ML VIAL ONE ×2 (11:25→11:27)
--- NOTE | 2019-08-08 11:32 | Post Operative Brief Note ---
Immediate Post Op Note v1 Date of Surgery August 08, 2019 Pre & Post Diagnosis Operation Date: 08/08/19 11:00 Pre-Op Diagnosis: incarcerated umbilical hernia Post-Op Diagnosis: incarcerated umbilical hernia I identified the patient and participated in the time-out.: Yes Procedure Operation Date: 08/08/19 11:00 Actual Procedures p incarcerated Umbilical Hernia Repair with mesh - Jarrod Stovall MD Surgeon Jarrod Stovall MD Tile Inspector none Estimated Blood Loss 30 Findings Consistent with Post-Op Diagnosis
[2019-08-08] MEDS ORDERED: CLINDAMYCIN 900 MG in DEXTROSE 5% 50 ML IV ONE (11:51)
[2019-08-08] MEDS ORDERED: CLINDAMYCIN 600 MG/54 ML BAG IV SCH (12:00)
--- NOTE | 2019-08-08 12:50 | Anesthesiology Progress Note ---
Date of Service August 08, 2019 Anesthesia Post Procedure Vital Signs Vital Signs: Temp Pulse Pulse Pulse Resp BP BP 08/08/19 12:35 36.8 C 86 15 160/65 H 08/08/19 12:25 36.8 C 88 15 156/80 H 08/08/19 12:15 92 H 17 158/77 H 08/08/19 12:05 96 H 17 159/70 H 08/08/19 11:55 99 H 18 142/72 H 08/08/19 11:49 36.6 C 100 H 12 129/70 08/08/19 10:15 96 H 20 173/65 H 08/08/19 09:44 78 20 159/75 H 08/08/19 08:57 92 H 20 205/67 H 08/08/19 08:29 36.5 C 51 L 24 224/71 H Pulse Ox 08/08/19 12:35 94 08/08/19 12:25 94 08/08/19 12:15 96 08/08/19 12:05 100 08/08/19 11:55 100 08/08/19 11:49 100 08/08/19 10:15 97 08/08/19 09:44 99 08/08/19 08:57 99 08/08/19 08:29 98 Pain Intensity Abdomen: Pain Intensity: 0 Transfer of Care Handoff Completed per policy Notes Mental Status: alert / awake / arousable and participated in evaluation Patient Amnestic to Procedure: Yes Nausea / Vomiting: adequately controlled Pain: adequately controlled Airway Patency, RR, SpO2: stable & adequate BP & HR: stable & adequate Hydration State: stable & adequate Anesthetic Complications: no major complications apparent and Pt Satisfied with anesthetic care
--- NOTE | 2019-08-08 13:00 | Operative Report ---
DATE OF OPERATION: 08/08/2019 PREOPERATIVE DIAGNOSIS: Incarcerated umbilical hernia. POSTOPERATIVE DIAGNOSIS: Incarcerated umbilical hernia with incarcerated omentum. PROCEDURE PERFORMED: Open umbilical hernia repair with 8 cm Ventralight circular mesh. SURGEON: Jarrod Stovall. WINDOWS INFRASTRUCTURE ENGINEER: None. ANESTHESIA: General endotracheal with 0.5% Marcaine with epinephrine local. ESTIMATED BLOOD LOSS: 30 mL. DRAINS: None. SPECIMENS: None. COMPLICATIONS: None. INDICATION FOR PROCEDURE: This is a 68-year-old female who presented to the ED with acute abdominal pain with nausea and vomiting. She had an obviously incarcerated umbilical hernia. This was a chronic issue, but she was tender and it was inflamed around the umbilicus. CT scan was done which showed a defect along with a large amount of omentum within this. Because of her symptoms and potentially she had a loop of bowel which popped in, we decided to repair this urgently. We talked in detail about the risk of recurrence, bleeding, infection, possible bowel resection. She understands this and wishes to proceed. DESCRIPTION OF PROCEDURE: The patient was taken to the OR and underwent excellent general endotracheal anesthesia. Abdomen was prepped and draped in normal sterile fashion. She had an NG tube was placed perioperatively and this drained her stomach prior to intubation. She was given 2 grams of Ancef. An infraumbilical incision was made and dissection was taken down to identify her fascia. She had a large umbilical hernia with incarcerated what appeared to be omentum. The hernia sac was entered into and there was largest bloody fluid along with omentum. This was a large amount of omentum. Therefore, a portion of the omentum was resected in 2 sections. This facilitated reduction of the omentum. There was some bleeding on the omentum, which was cauterized. This lost about 30 mL of blood. Once the omentum was reduced, the defect was noted. It was about 3 cm in width and therefore a large piece 8 cm Ventralight mesh was obtained. This was placed into the peritoneal cavity after it was dunked in water with the Seprafilm side towards the omentum. The fascia was refreshed circumferentially. Interrupted 0 Ethibond sutures were used to secure the mesh to the fascia with multiple sutures. Once this was done, an umbilicoplasty was performed. The defect was irrigated out and suctioned clear. Deep tissues were closed with interrupted Vicryls and roxane used to close the skin. She tolerated the procedure well with no complications, sent to postop recovery and then be sent to her room after she meets criteria in the postop period. I attest to the content of the Intraoperative Record and any orders documented therein. Any exception s are noted below.
[2019-08-08] MEDS ORDERED: MoRPHine SULFATE 2 MG/ML CARP IV PRN (13:23)
[2019-08-08] MEDS ORDERED: OXYCODONE/ACETAMINOPHEN 5mg/325mg TAB PO PRN ×2 (13:23)
[2019-08-08] MEDS ORDERED: ONDANSETRON INJ 2 MG/ML 2 ML VIAL IV PRN (13:23)
[2019-08-08] MEDS ORDERED: MoRPHine SULFATE 10 MG/ML CARP/VIAL IV PRN (13:23)
[2019-08-08] MEDS ORDERED: PROMETHAZINE HCL 12.5 MG in SODIUM CHLORIDE 0.9% 50 ML IV PRN (13:23)
[2019-08-08] MEDS ORDERED: ACETAMINOPHEN 325 MG TAB PO PRN (13:23)
--- NOTE | 2019-08-08 14:56 | Hospitalist Consultation ---
Date of Consultation August 08, 2019 Assessment & Plan (1) Incarcerated umbilical hernia: Status post surgical repair today. Surgery following. Pain control per surgery team. She is getting morphine as needed basis, Zofran as needed for nausea vomiting. (2) Diabetes mellitus: Add sliding scale insulin per hospital protocol. (3) Abdominal pain: Postop pain under control. Pain control per primary team. (4) Nausea and vomiting: (5) Obstructive sleep apnea: (6) Hypertension: Continue lisinopril. (7) Obesity, morbid, BMI 40.0-49.9: (8) Dyslipidemia: (9) Chronic kidney disease, stage III (moderate): Consider nephrology consultation. Add gentle IV fluids. (10) Breast cancer: (11) DVT prophylaxis: Add subcu heparin. History of Present Illness Reason for Consultation: Postop medical management Requesting Physician: Jarrod Stovall MD Attending Physician: Jarrod Stovall MD History of Present Illness The patient is 68-year-old female who had umbilical hernia repair today for incarcerated umbilical hernia. She tolerated the surgery well without any complications. Hospitalist consultation was requested for medical management. She has history of hypertension, diabetes, dyslipidemia, and chronic kidney disease. Her postoperative pain is under control. She has been started on clear liquids and diet will be advanced gradually. No fever. Allergies Allergy/AdvReac Type Severity Reaction Status Date / Time Penicillins Allergy Intermediate BODY RASH Verified 03/25/19 13:57 dapagliflozin Allergy Unknown unable to Verified 03/25/19 13:57 function wheat Allergy Unknown body Verified 03/25/19 13:57 rejects levofloxacin [From Levaquin] Allergy Verified 03/25/19 13:57 pollen extracts AdvReac Verified 03/25/19 13:57 Dust Allergy Unknown DUST AND Uncoded 03/25/19 13:57 POLLEN = SNEEZING Home Medications Home Medications Medication Instructions Recorded Confirmed Type insulin glargine 100 unit/mL (3 23 units SUBCUT BID #3 ml 03/13/19 03/13/19 History mL) subcutaneous pen lancets #50 ea 03/13/19 03/13/19 History lisinopril 40 mg tablet 40 mg PO DAILY #90 tab 03/13/19 03/13/19 History meclizine 25 mg tablet 25 mg PO .COMPLEX PRN tab 03/13/19 03/13/19 History nystatin-triamcinolone 100,000 1 appln TOPICAL .COMPLEX PRN gm 03/13/19 History unit/g-0.1 % topical cream pen needle, diabetic 32 gauge x #10 ea 03/13/19 03/13/19 History " insulin aspart U-100 100 unit/mL 22 units SUBCUT DAILY 90 Days #45 04/22/19 Rx (3 mL) subcutaneous pen ml MDD 40 units with sliding scale triamterene 37.5 1 cap PO DAILY #90 cap 04/22/19 Rx mg-hydrochlorothiazide 25 mg capsule insulin glargine 100 unit/mL (3 See Rx Instructions SQ DAILY #30 ml 06/16/19 Rx mL) subcutaneous pen Spectrum BridgeTouch Ultra Blue Test Strip #400 ea NS 07/22/19 Rx Patient History Medical History Chronic kidney disease, stage III (moderate) (Acute) Dyslipidemia (Acute) Hypertension (Acute) Obesity, morbid, BMI 40.0-49.9 (Acute) Obstructive sleep apnea (Acute) Family History Other Coronary heart disease Hypertension Kidney disease Social History Preferred Language: Malay Communication Ability: Effective Slurry Plant Operator Required: No Beliefs That Will Affect Care: None Current Living Situation: Alone Other Information That Helps Us Care for You: No Feels Safe at Home: Yes Safety Concerns: Feels Safe At This Time Smoking Status: Never smoker Do You Dip or Chew Tobacco: No ; Second Hand Exposure: No ; Tobacco Cessation Education Requested by Patient: No Hx Alcohol Use: No Hx Substance Use: No Review of Systems Review of Systems: All systems reviewed & are unremarkable except as noted in HPI & below Physical Exam Physical Exam: GENERAL : No acute distress EYES: No icterus, gaze conjugate NOSE: No evidence of epistaxis MOUTH: No lesions or candidiasis, mucosa moist NECK: Supple LUNGS: CTA B/L, no wheezes, rales or rhonchi HEART: Regular, rate controlled ABDOMEN: Soft, NT, ND, BS Present Postop dressing noted. EXTREMITIES: No LE edema, pedal pulses intact NEURO: A&OX3 Results & Data Vital Signs (Past 12 Hours) Vital Signs Temp Pulse Pulse Pulse Pulse Resp BP 08/08/19 14:10 97.5 F L 61 18 08/08/19 13:40 97.7 F 67 20 08/08/19 13:10 97.7 F 53 L 16 08/08/19 12:45 98.2 F 86 15 08/08/19 12:35 98.2 F 86 15 08/08/19 12:25 98.2 F 88 15 08/08/19 12:15 92 H 17 08/08/19 12:05 96 H 17 08/08/19 11:55 99 H 18 08/08/19 11:49 97.9 F 100 H 12 08/08/19 10:15 96 H 20 08/08/19 09:44 78 20 08/08/19 08:57 92 H 20 08/08/19 08:29 97.7 F 51 L 24 224/71 H BP BP Pulse Ox Pulse Ox 08/08/19 14:10 139/72 93 08/08/19 13:40 146/77 H 93 08/08/19 13:10 144/81 H 97 97 08/08/19 12:45 145/73 H 97 08/08/19 12:35 160/65 H 94 08/08/19 12:25 156/80 H 94 08/08/19 12:15 158/77 H 96 08/08/19 12:05 159/70 H 100 08/08/19 11:55 142/72 H 100 08/08/19 11:49 129/70 100 08/08/19 10:15 173/65 H 97 08/08/19 09:44 159/75 H 99 08/08/19 08:57 205/67 H 99 08/08/19 08:29 98 Laboratory Results 08/08/19 09:57 08/08/19 09:[address] abd pelvis wo con CT DOSE: 1342.94 mGy.cm HISTORY: Hernia eval for umbilical hernia TECHNIQUE: Multiaxial CT images of the abdomen and pelvis were performed without contrast. A dose lowering technique was utilized adhering to the principles of ALARA. COMPARISON STUDY: None. FINDINGS: Lung bases are clear. Small cyst medial aspect anterior right hepatic lobe. Liver spleen and pancreas are otherwise unremarkable. Right kidney is atrophic. Left kidney shows mild cortical scarring. The bowel pattern is considered nonobstructive. There are 2 periumbilical hernias. These measure 3 and 4 cm respectively in maximum transaxial dimension. There are periumbilical in location. The contain fat exclusively. There is no evidence for bowel containment or incarceration. : Pattern shows several scattered diverticuli. There is no evidence for diverticulitis. There is no free fluid within the pelvic cul-de-sac. IMPRESSION: 1. 2 Anterior ventral periumbilical hernias. 2. These contain fat exclusively with no evidence for bowel containment or incarceration.. 3. Remainder the study is unremarkable. 4. The bowel pattern is nonobstructive. 5. Atrophy right kidney. XR chest 1V portable CLINICAL HISTORY: ngt placement confirmation tube position COMPARISON STUDY: 02/18/2019 FINDINGS: Lungs are clear. Diaphragms are smooth. There is a nasogastric tube within the gastric fundus. IMPRESSION: Nasogastric tube within the gastric fundus. Otherwise negative chest. PG Care Time/CCT Total # of Minutes Spent Total Time Spent with Patient: Total time spent is greater than 50% in coordination of care (as documented) at patient's floor/unit and/or counseling patient: (1) Diabetes mellitus Diabetes mellitus complication status: without complication Diabetes mellitus termite treater insulin use: with snf use Diabetes mellitus type: type 2 Qualified Code(s): E11.9 - Type 2 diabetes mellitus without complications; Z79.4 - manager terminal (current) use of insulin (2) Nausea and vomiting Vomiting Intractability: unspecified Vomiting type: unspecified Qualified Code(s): R11.2 - Nausea with vomiting, unspecified (3) Abdominal pain Abdominal location: periumbilical Qualified Code(s): R10.33 - Periumbilical pain
[2019-08-08] MEDS ORDERED: CARBOHYDRATES FOR HYPOGLYCEMIA PO PRN (14:57)
[2019-08-08] MEDS ORDERED: GLUCAGON FOR INJ 1 MG VIAL SQ PRN ×2 (14:57→18:12)
[2019-08-08] MEDS ORDERED: GLUCOSE 10 TABS/TUBE PO PRN ×2 (14:57→18:12)
[2019-08-08] MEDS ORDERED: DEXTROSE 50% 50 ML SYRINGE IV PRN ×2 (14:57→18:12)
[2019-08-08] MEDS ORDERED: GLUCOSE 40% GEL 15 GM TUBE PO PRN ×2 (14:57→18:12)
[2019-08-08] MEDS: LACTATED RINGER'S 1,000 ML IV SCH (16:00)
[2019-08-08] MEDS: INSULIN ASPART 100 UNITS/ML 3 ML PEN SC SCH ×2 (19:21→21:05)
[2019-08-08] MEDS: HEPARIN SOD 5,000 UNIT/0.5 ML VIAL SQ SCH (21:05)
[2019-08-08 22:19] LABS: Appearance Urine Clear (Clear); Bacteria Urine Automated Negative (Negative); Bilirubin Urine Negative (Negative); Blood Urine 2+ (Negative); Cast Urine Automated 0 /lpf (0-5); Color Urine Yellow; Epithelial Cell Urine Auto 0-5 /lpf (0-5); Glucose Urine UA Negative (Negative); Ketones Urine Negative (Negative); Leukocyte Esterase Urine Negative (Negative); Nitrite Urine Negative (Negative); Protein Urine Negative (Negative); Specific Gravity Urine 1.019 (1.000-1.030); Urobilinogen Urine Negative (Negative); WBC Urine Automated 0 /hpf (0-5)
[2019-08-09] MEDS: LACTATED RINGER'S 1,000 ML IV SCH ×2 (02:05→11:13)
[2019-08-09] MEDS: HEPARIN SOD 5,000 UNIT/0.5 ML VIAL SQ SCH ×3 (06:19→22:06)
[2019-08-09] MEDS: IBUPROFEN 600 MG TAB PO PRN ×2 (06:29→13:22)
--- NOTE | 2019-08-09 08:01 | Anesthesiology Progress Note ---
Date of Service August 09, 2019 Anesthesia Post Procedure Vital Signs Vital Signs: Temp Pulse Pulse Pulse Pulse Pulse Resp 08/09/19 04:00 36.8 C 80 16 08/08/19 23:45 08/08/19 23:11 36.8 C 71 16 08/08/19 23:10 36.8 C 71 16 08/08/19 19:38 36.9 C 69 17 08/08/19 16:07 36.5 C 58 L 18 08/08/19 15:19 36.5 C 65 17 08/08/19 14:10 36.4 C L 61 18 08/08/19 13:40 36.5 C 67 20 08/08/19 13:10 36.5 C 53 L 16 08/08/19 12:45 36.8 C 86 15 08/08/19 12:35 36.8 C 86 15 08/08/19 12:25 36.8 C 88 15 08/08/19 12:15 92 H 17 08/08/19 12:05 96 H 17 08/08/19 11:55 99 H 18 08/08/19 11:49 36.6 C 100 H 12 08/08/19 10:15 96 H 20 08/08/19 09:44 78 20 08/08/19 08:57 92 H 20 08/08/19 08:29 36.5 C 51 L 24 BP BP BP Pulse Ox Pulse Ox 08/09/19 04:00 137/71 96 08/08/19 23:45 97 08/08/19 23:11 107/67 97 08/08/19 23:10 97 08/08/19 19:38 143/64 H 94 08/08/19 16:07 101/46 L 93 08/08/19 15:19 158/86 H 98 08/08/19 14:10 139/72 93 08/08/19 13:40 146/77 H 93 08/08/19 13:10 144/81 H 97 97 08/08/19 12:45 145/73 H 97 08/08/19 12:35 160/65 H 94 08/08/19 12:25 156/80 H 94 08/08/19 12:15 158/77 H 96 08/08/19 12:05 159/70 H 100 08/08/19 11:55 142/72 H 100 08/08/19 11:49 129/70 100 08/08/19 10:15 173/65 H 97 08/08/19 09:44 159/75 H 99 08/08/19 08:57 205/67 H 99 08/08/19 08:29 224/71 H 98 Pain Intensity Abdomen: Pain Intensity: 3 Notes Mental Status: alert / awake / arousable and participated in evaluation Patient Amnestic to Procedure: Yes Nausea / Vomiting: adequately controlled Pain: adequately controlled Airway Patency, RR, SpO2: stable & adequate BP & HR: stable & adequate Hydration State: stable & adequate Anesthetic Complications: no major complications apparent
[2019-08-09] MEDS: INSULIN ASPART 100 UNITS/ML 3 ML PEN SC SCH ×4 (08:55→22:05)
[2019-08-09] MEDS ORDERED: lisinopriL 40 MG TAB PO SCH ×2 (09:00→21:00)
[2019-08-09 09:01] LABS: BUN Creatinine Ratio 16.6 (10-20); Calcium 8.7 mg/dl (8.5-10.1); Creatinine Clr Calc Pharmacy 53.3 ml/min; Est GFR (African American) 51.2; Est GFR (Non-African American) 44.2; Potassium 4.3 mmol/L (3.5-5.1)
[2019-08-09] MEDS ORDERED: Nursing to Pharmacy Communication ONE (09:05)
--- NOTE | 2019-08-09 15:03 | Surgery Progress Note ---
Date of Service August 09, 2019 Assessment & Plan (1) Incarcerated umbilical hernia: POD # 1 s/p umbilical hernia repair with mesh -vitals stable, afebrile - pain controlled post op - no n/v Plan: Continue Po Percocet and Ibuprofen prn pain continue regular DM diet d/c iv fluids encouraged ambulation today continue SCDs and Heparin for DVT prophylaxis Incentive spirometry continue binder likely discharge home tomorrow Dr. Rosales has seen and examined pt, agrees with above Subjective feeling good pain controlled with Ibuprofen tolerated regular diet, no n/v no flatus or bm has not ambulated hallway Physical Exam Constitutional: WD/WN, vitals as above + morbidly obese; no acute distress Respiratory: normal respiratory effort; no respiratory distress and no labored breathing Gastrointestinal (Abdomen): Inspection/Auscultation: abdomen normal to inspection; abdomen not distended Percussion/Palpation: + abdomen tender (at incision site) and abdomen soft; no guarding and abdomen not rigid Skin: no rashes, warm and dry + incision (clean/dry/intact with roxane) Psychiatric: A+Ox3, euthymic affect Results & Data Vital Signs (Past 12 Hours) Vital Signs Temp Pulse Pulse Resp BP Pulse Ox 08/09/19 11:32 37.0 C 68 20 125/70 95 08/09/19 08:09 37.0 C 84 12 136/68 94 08/09/19 04:00 36.8 C 80 16 137/71 96 Laboratory Results 08/09/19 08/09/19 08/09/19 Range/Units 12:08 08:20 08:17 Sodium 137 (136-145) mmol/L Potassium 4.3 (3.5-5.1) mmol/L Chloride 107 (98-107) mmol/L Carbon Dioxide 25 (21-32) mmol/L Anion Gap 5.0 (3-11) BUN 21 H (7-18) mg/dl Creatinine 1.25 H (0.6-1.2) mg/dl Est Cr Clr Drug Dosing 53.3 ml/min Est GFR ( Amer) 51.2 Est GFR (Non-Af Amer) 44.2 BUN/Creatinine Ratio 16.6 (10-20) Glucose 140 H (70-99) mg/dl POC Glucose 138 H 155 H (70-99) Calcium 8.7 (8.5-10.1) mg/dl Urine Color Urine Appearance (Clear) Urine pH (4.5-7.5) Ur Specific Commiskey (1.000-1.030) Urine Protein (Negative) Urine Glucose (UA) (Negative) Urine Ketones (Negative) Urine Blood (Negative) Urine Nitrite (Negative) Urine Bilirubin (Negative) Urine Urobilinogen (Negative) Ur Leukocyte Esterase (Negative) Urine WBC (Auto) (0-5) /hpf Urine RBC (Auto) (0-4) /hpf U Hyaline Cast (Auto) (0-5) /lpf U Epithel Cells (Auto) (0-5) /lpf Urine Bacteria (Auto) (Negative) 08/08/19 08/08/19 08/08/19 Range/Units 21:45 20:36 17:03 Sodium (136-145) mmol/L Potassium (3.5-5.1) mmol/L Chloride (98-107) mmol/L Carbon Dioxide (21-32) mmol/L Anion Gap (3-11) BUN (7-18) mg/dl Creatinine (0.6-1.2) mg/dl Est Cr Clr Drug Dosing ml/min Est GFR ( Amer) Est GFR (Non-Af Amer) BUN/Creatinine Ratio (10-20) Glucose (70-99) mg/dl POC Glucose 211 H 193 H (70-99) Calcium (8.5-10.1) mg/dl Urine Color Yellow Urine Appearance Clear (Clear) Urine pH 5.0 (4.5-7.5) Ur Specific Commiskey 1.019 (1.000-1.030) Urine Protein Negative (Negative) Urine Glucose (UA) Negative (Negative) Urine Ketones Negative (Negative) Urine Blood 2+ H (Negative) Urine Nitrite Negative (Negative) Urine Bilirubin Negative (Negative) Urine Urobilinogen Negative (Negative) Ur Leukocyte Esterase Negative (Negative) Urine WBC (Auto) 0 (0-5) /hpf Urine RBC (Auto) 10-30 H (0-4) /hpf U Hyaline Cast (Auto) 0 (0-5) /lpf U Epithel Cells (Auto) 0-5 (0-5) /lpf Urine Bacteria (Auto) Negative (Negative) 08/08/19 Range/Units 14:18 Sodium (136-145) mmol/L Potassium (3.5-5.1) mmol/L Chloride (98-107) mmol/L Carbon Dioxide (21-32) mmol/L Anion Gap (3-11) BUN (7-18) mg/dl Creatinine (0.6-1.2) mg/dl Est Cr Clr Drug Dosing ml/min Est GFR ( Amer) Est GFR (Non-Af Amer) BUN/Creatinine Ratio (10-20) Glucose (70-99) mg/dl POC Glucose 157 H (70-99) Calcium (8.5-10.1) mg/dl Urine Color Urine Appearance (Clear) Urine pH (4.5-7.5) Ur Specific Commiskey (1.000-1.030) Urine Protein (Negative) Urine Glucose (UA) (Negative) Urine Ketones (Negative) Urine Blood (Negative) Urine Nitrite (Negative) Urine Bilirubin (Negative) Urine Urobilinogen (Negative) Ur Leukocyte Esterase (Negative) Urine WBC (Auto) (0-5) /hpf Urine RBC (Auto) (0-4) /hpf U Hyaline Cast (Auto) (0-5) /lpf U Epithel Cells (Auto) (0-5) /lpf Urine Bacteria (Auto) (Negative)
--- NOTE | 2019-08-09 16:06 | Hospitalist Progress Note ---
Date of Service August 09, 2019 Assessment & Plan (1) Incarcerated umbilical hernia: Status post surgical repair today. Surgery following. Pain control per surgery team. She is getting morphine as needed basis, Zofran as needed for nausea vomiting. (2) Diabetes mellitus: Holding home dose of Lantus regimen current with reduced diet. Continue NovoLog sliding scale while admitted. Glucose values acceptable. (3) Obstructive sleep apnea: (4) Hypertension: Continue lisinopril. (5) Dyslipidemia: (6) Chronic kidney disease, stage III (moderate): Would recommend avoiding NSAIDs if possible. Daily BMP while admitted. (7) DVT prophylaxis: Heparin 5000 units SQ Q8H (8) Discharge planning issues: Medically stable for discharge pending she passes gas. Will also require surgical clearance. Subjective Patient reports doing well post operatively although is yet to pass any gas or have a bowel movement. Discussed chronic issues of hypertension and diabetes both of which are stable on her current regiment. She takes Lantus 23 units BID and Novlog 7 - breakfast, 5 - lunch, 10 - dinner, with a sliding scale correction factor on a chart which is not available at this time. Review of Systems Review of Systems: All systems reviewed & are unremarkable except as noted in HPI & below Physical Exam 2 Constitutional: well developed and + obese; no acute distress Eyes: + anicteric sclerae; pupils not irregular Cardiovascular: RRR, no murmur, no edema Gastrointestinal (Abdomen): Inspection/Auscultation: + hypoactive bowel sounds Percussion/Palpation: + abdomen tender (around surgical scars) and abdomen soft; no guarding and abdomen not rigid Musculoskeletal: no cyanosis or clubbing, extremities motor strength 5/5 Skin: no rashes, warm and dry Neurologic: moves all extremities and awake; no focal motor deficits and not confused Psychiatric: A+Ox3, euthymic affect Results & Data Vital Signs (Past 12 Hours) Vital Signs Temp Pulse Pulse Resp BP Pulse Ox 08/09/19 15:08 98.6 F 78 17 135/73 95 08/09/19 11:32 98.6 F 68 20 125/70 95 08/09/19 08:09 98.6 F 84 12 136/68 94 PG Care Time/CCT Total # of Minutes Spent Total Time Spent with Patient: Total time spent is greater than 50% in coordination of care (as documented) at patient's floor/unit and/or counseling patient: (1) Diabetes mellitus Diabetes mellitus complication status: without complication Diabetes mellitus snf insulin use: with snf use Diabetes mellitus type: type 2 Qualified Code(s): E11.9 - Type 2 diabetes mellitus without complications; Z79.4 - terminal press operator (current) use of insulin
[2019-08-10] MEDS: IBUPROFEN 600 MG TAB PO PRN (01:48)
[2019-08-10] MEDS: HEPARIN SOD 5,000 UNIT/0.5 ML VIAL SQ SCH ×2 (06:06→13:09)
[2019-08-10] MEDS ORDERED: INSULIN GLARGINE SOLOSTAR 100 UNITS/ML 3 ML PEN SC SCH (09:00)
[2019-08-10] MEDS: INSULIN ASPART 100 UNITS/ML 3 ML PEN SC SCH ×2 (09:27→13:09)
--- NOTE | 2019-08-10 14:01 | Hospitalist Progress Note ---
Date of Service August 10, 2019 Assessment & Plan (1) Incarcerated umbilical hernia: POD #2. Pain and nausea management as per surgical team. (2) Diabetes mellitus: Holding home dose of Lantus regimen current with reduced diet. Continue NovoLog sliding scale while admitted. Glucose values acceptable. Would d/c with usual home regimen however. (3) Obstructive sleep apnea: (4) Hypertension: Continue lisinopril. Can d/c with usual medication regimen. (5) Dyslipidemia: (6) Chronic kidney disease, stage III (moderate): Would recommend avoiding NSAIDs if possible. Daily BMP while admitted. (7) DVT prophylaxis: Heparin 5000 units SQ Q8H (8) Discharge planning issues: Medically stable for discharge at this time, pending surgical primary team clearance. No change to outpatient medication regimen recommended from medicine. Subjective Patient sitting up in chair. Eating today. No bowel movement currently but is now passing a lot of gas. Abdominal binder in place not removed therefore abdomen not examined at this time. Discussed improvement of creatinine after holding her antihypertensive diuretics. Previously under Dr Diaz but discharged from nephrology after improvement in her renal function following pneumonia as per patient recollection. She has note some more leg swelling since being off this medication however. She does report a history of venous insufficiency. No chest pain or shortness of breath. Review of Systems Review of Systems: All systems reviewed & are unremarkable except as noted in HPI & below Physical Exam Constitutional: well developed and + obese; no acute distress Eyes: + anicteric sclerae; pupils not irregular Cardiovascular: RRR, no murmur, no edema Gastrointestinal (Abdomen): Inspection/Auscultation: + hypoactive bowel sounds Percussion/Palpation: + abdomen tender (around surgical scars) and abdomen soft; no guarding and abdomen not rigid Musculoskeletal: no cyanosis or clubbing, extremities motor strength 5/5 Skin: no rashes, warm and dry Neurologic: moves all extremities and awake; no focal motor deficits and not confused Psychiatric: A+Ox3, euthymic affect Results & Data Vital Signs (Past 12 Hours) Vital Signs Temp Pulse Resp BP Pulse Ox 08/10/19 07:13 97.7 F 75 18 129/73 97 PG Care Time/CCT Total # of Minutes Spent Total Time Spent with Patient: Total time spent is greater than 50% in c oordination of care (as documented) at patient's floor/unit and/or counseling patient: (1) Diabetes mellitus Diabetes mellitus complication status: without complication Diabetes mellitus termite control servicer insulin use: with group home use Diabetes mellitus type: type 2 Qualified Code(s): E11.9 - Type 2 diabetes mellitus without complications; Z79.4 - ad terminal makeup operator (current) use of insulin
[2019-08-10 15:25] VITALS: BP 141/76; TEMP 98.6; O2SAT 95
[2019-08-10 15:43] VITALS: PULSE 78
--- NOTE | 2019-08-10 15:51 | Surgery Progress Note ---
Date of Service August 10, 2019 Assessment & Plan (1) Incarcerated umbilical hernia: Postoperative day #2 status post repair of incarcerated umbilical hernia Doing well Can discharge to home Discussed postoperative activity restrictions Should call the office tomorrow for scheduling of a follow-up appointment with Dr. Stovall Subjective Postoperative day #2, status post repair of incarcerated umbilical hernia Feeling very well Pain is minimal Denies nausea and vomiting Tolerated regular diet Passing flatus Physical Exam Gastrointestinal (Abdomen): Inspection/Auscultation: normal bowel sounds and + abdominal surgical incision (Clean, dry and intact); abdomen not distended Percussion/Palpation: + abdomen tender (Minimal incisional) and abdomen soft Results & Data Vital Signs (Past 12 Hours) Vital Signs Temp Pulse Pulse Pulse Pulse Resp BP 08/10/19 15:37 37 C 68 61 88 78 20 143/64 H 08/10/19 15:22 37 C 88 20 08/10/19 07:13 36.5 C 75 18 BP Pulse Ox 08/10/19 15:37 141/76 H 95 08/10/19 15:22 141/76 H 95 08/10/19 07:13 129/73 97
--- NOTE | 2019-08-20 08:51 | Discharge Summary ---
Date of Service August 20, 2019 Admission HPI Per Admitting Provider The patient is a 68 year old female that presents to the ED with complaints of an episode of abdominal pain secondary to a known umbilical hernia that started this morning. She has been vomiting since this morning. She denies fever or chills. She is diabetic and that her blood glucose levels have been in and out of control. She states that she did not take her insulin this morning. She denies having any food or drink today. The patient denies taking any blood thinners. Principal Diagnosis Incarcerated umbilical hernia Discharge Data Allergies Allergy/AdvReac Type Severity Reaction Status Date / Time Penicillins Allergy Intermediate BODY RASH Verified 03/25/19 13:57 dapagliflozin Allergy Unknown unable to Verified 03/25/19 13:57 function wheat Allergy Unknown body Verified 03/25/19 13:57 rejects levofloxacin [From Levaquin] Allergy Verified 03/25/19 13:57 pollen extracts AdvReac Verified 03/25/19 13:57 Dust Allergy Unknown DUST AND Uncoded 03/25/19 13:57 POLLEN = SNEEZING Consultations 08/08/19 09:29 ED Decision to Admit Stat 08/08/19 13:23 Consult Hospitalist Routine 08/08/19 13:50 Consult Hospitalist Routine Procedures Performed Operation Date: 08/08/19 11:00 Actual Procedures p incarcerated Umbilical Hernia Repair with mesh - Jarrod Stovall MD Ordered Studies 08/08/19 08:40 CT abd pelvis wo con Stat Hospital Course (1) Incarcerated umbilical hernia: Patient was evaluated in the ED by Dr. Stovall and was then taken to operating room for repair of incarcerated umbilical hernia. Hospitalist was consulted due to comorbidities. Patient was found to have incarcerated hernia with omentum which required resection. Mesh was used in the procedure. Patient tolerated procedure well and was transferred to medical/surgical floor for post op care. Diet was advanced as tolerated. She was continued on her home medications except she was placed on insulin sliding scale for her diabetes. She was given PO Percocet with IV morphine as needed for pain. Also started on SQ Heparin for DVT prophylaxis. POD # 1 vitals stable, afebrile, post op pain controlled however not ambulating or getting out of bed much. Tolerated diet. She was advised to ambulate. POD # 2 patient stable, pain controlled, tolerating diet, and ambulating. She was discharged home on POD # 2 in stable condition. Total Time Total Time Spent Total Time Spent (In Minutes): 20 Total Time Includes: Examination of the Patient, Discharge Planning and Medication Reconciliation Discharge Plan Discharge Items Patient Disposition: Home - Self-Care Reason For Visit: INACARCERATED UMBILICAL HERNIA Discharge Diagnosis: same Activity: Per Instructions section Non-emergency contact: Primary Care Provider and Surgeon Call non-emergency contact if: you have any medication questions, your symptoms worsen, your pain is not controlled, your pain is unusual for you, your pain is concerning for you, you have a fever, your temperature is above 101, your wound has increased redness, your wound has increased drainage and your wound pain has increased Follow-up/Referrals: Brooke Fuentes MD [Primary Care Provider] - Diet: Regular Addtl Attending Provider Instructions: No heavy lifting over 10 pounds for 6 weeks No strenuous activity until cleared by surgeon No submerging incision underwater for 2 weeks (no bathing, swimming, or hot tubs) No driving while taking pain medication or until you are pain free You may shower. Surgical roxane will be removed in office Wear abdominal binder daily for support May keep small dressing on incision for coverage while wearing binder You may take extra strength Tylenol or Ibuprofen as needed for mild pain 650 mg of Tylenol every 6 hours 600 mg of Ibuprofen every 6 hours with food If you are given prescription for narcotic pain medication, take as directed. This medication may cause drowsiness and constipation. Follow-up in surgical office in 1-2 weeks. Please call office at [phone] to make an appointment. Pending Studies at Discharge: No Stand-Alone Forms: [facility] [employer], Smoking Cessation Medications and DC Order Prescriptions: Continued triamterene-hydrochlorothiazid 37.5-25 mg capsule 1 cap PO DAILY Qty: 90 RF: 3 insulin aspart U-100 100 unit/mL (3 mL) insulin pen 22 units subcut DAILY MDD 40 units with sliding scale 90 Days Qty: 45 RF: 3 Basaglar KwikPen U-100 Insulin 100 unit/mL (3 mL) insulin pen See Rx Instructions SQ DAILY Qty: 30 RF: 5 (DME) OneTouch Ultra Blue Test Strip strip See Dose Instructions .ROUTE .MEDSUPPLY Qty: 400 RF: 3 insulin glargine 100 unit/mL (3 mL) insulin pen 23 units subcut BID Qty: 3 RF: 0 (DME) pen needle, diabetic [BD Ultra-Fine Twyla Pen Needle] 32 gauge x 5/32" needle See Dose Instructions .ROUTE .MEDSUPPLY Qty: 10 RF: 0 (DME) lancets [OneTouch UltraSoft Lancets] [facility] See Dose Instructions .ROUTE .MEDSUPPLY Qty: 50 RF: 0 lisinopril 40 mg tablet 40 mg PO DAILY Qty: 90 RF: 0 meclizine 25 mg tablet 25 mg PO .COMPLEX PRNRF: 0 nystatin-triamcinolone 100,000-0.1 unit/g-% cream 1 appln topical .COMPLEX PRNRF: 0 Discharge Orders: Discharge Order (Routine); Ordered 08/10/19 Ordered By: Sae Rosales Admission Data Admit Date/Time: 08/08/19 13:16 Attending Provider: Jarrod Stovall Admit Provider: Jarrod Stovall Primary Care Provider: Brooke Fuentes Other Providers: Jarrod Stovall ; Yue Erickson ; Tera Cervantes ; Basia Owens ; Carley Garcia ; Yadi Ford ; Pina Saeed ; Isamar Burton ; Familia Lamas ; Gabriel Day ; Haris Mcmillan ; Becky Oneill ; Zohreh Carrington ; Pita Mclaughlin ; Al Macario ; Darrick Villagran ; Araceli Be ; Melecio Ho ; Waleska Shahid ; Darrick Hickey ; Candelaria Coy ; Unique Roth ; Gala Niño I. ; Herb Donald ; Edi Nesbitt ; Zan Cosby Other Interventions: Discharge Summary Assessment (RN) Last Done: 08/10/19 15:37 DC Date/Time DO NOT enter until pt leaves facility: 08/10/19 16:31
== END 2019-08-10 16:31 | disposition home or self-care (01) ==
LOC: ED 08:26 → OR 10:14 → 3N 10:14

== ENCOUNTER 2020-04-20 11:34 | Inpatient (IN) ==
[2020-04-20 11:57] LABS: Basophils # (auto) 0.01 K/uL (0-0.2); Basophils % (auto) 0.1 %; Eosinophils # (auto) 0.24 K/uL (0-0.5); Eosinophils % (auto) 3.3 %; Hematocrit (blood only) 36.8 % (37-47); Hemoglobin 11.9 g/dL (12.0-16.0); Immature Granulocytes # (auto) 0.01 K/uL (0.00-0.02); Immature Granulocytes % (auto) 0.1 %; Lymphocytes # (auto) 1.39 K/uL (1.2-3.4); Lymphocytes % (auto) 19.1 %; Mean Corpuscular Hemoglobin 28.4 pg (25-34); Mean Corpuscular Hgb Conc 32.3 g/dL (32-36); Mean Corpuscular Volume 87.8 fL (80-100); Mean Platelet Volume 10.2 fL (7.4-10.4); Monocytes % (auto) 5.5 %; Neutrophils # (auto) 5.21 K/uL (1.4-6.5); Neutrophils % (auto) 71.9 %; Platelet Count 193 K/uL (130-400); RDW Coefficient of Variation 15.9 % (11.5-14.5); RDW Standard Deviation 50.8 fL (36.4-46.3); Red Blood Count 4.19 M/uL (4.2-5.4); White Blood Count 7.26 K/uL (4.8-10.8)
--- NOTE | 2020-04-20 12:08 | XRay Report ---
XR chest 1V portable CLINICAL HISTORY: Atypical chest pain COMPARISON STUDY: 08/08/2019 FINDINGS: The cardiac and mediastinal contours are normal. There is no evidence of focal pulmonary co nsolidation. There is no evidence of failure. No pleural effusions are visualized.[There is a total r ight shoulder arthroplasty. IMPRESSION: No active disease in the chest. ACT 112: Negative or not required by law. Electronically signed by: Lucio Ferraro M.D. 04/20/2020 12:06 PM
[2020-04-20 12:15] LABS: Partial Thromboplastin Time 27.6 Seconds (21.0-31.0); Prothrombin Time 10.8 Seconds (9.0-12.0)
[2020-04-20 12:16] LABS: Albumin Level 3.2 gm/dl (3.4-5.0); BUN Creatinine Ratio 17.1 (10-20); Calcium 8.8 mg/dl (8.5-10.1); Creatinine Clr Calc Pharmacy 49.5 ml/min; Est GFR (Non-African American) 41.4; Potassium 3.1 mmol/L (3.5-5.1)
--- NOTE | 2020-04-20 12:18 | Emergency Department Note ---
History of Present Illness General Chief complaint: Chest Pain Stated complaint: chest pain Time Seen by Provider: 04/20/20 11:37 Source: patient, EMS, RN notes reviewed and old records reviewed Mode of arrival: EMS Limitations: no limitations History of Present Illness Provider complaint: Chest pain Onset (ago): week(s) 1 Location: chest Radiation: back Severity: moderate Pain Consistency: + intermittent and + now resolved Maximum Pain Intensity: 0 Current Pain Intensity: 0 Quality: + aching Relieved By: + immobilization Exacerbated By: + movement Associated symptoms: no diaphoresis, no fever/chills, no nausea/vomiting and no shortness of breath Treatments prior to arrival: none This is a 69-year-old female who was sent in by her primary care physician's office over concerns of the patient has new EKG changes. The patient reports she has been having chest pain for the past week. She reports the chest pain seems to come and go and does not seem to be related to any symptoms. Taking a deep breath does not make the pain worse and exerting herself does not seem to make the pain get worse. She has no other complaints. Home Medications Home Medications Medication Instructions Recorded Confirmed Type insulin glargine 100 unit/mL (3 23 units SUBCUT BID #3 ml 03/13/19 04/20/20 History mL) subcutaneous pen lisinopril 40 mg tablet 40 mg PO DAILY #90 tab 03/13/19 04/20/20 History meclizine 25 mg tablet 25 mg PO UD PRN tab 03/13/19 04/20/20 History nystatin-triamcinolone 100,000 1 appln TOPICAL UD PRN gm 03/13/19 04/20/20 History unit/g-0.1 % topical cream triamterene 37.5 1 cap PO DAILY #90 cap 04/22/19 04/20/20 Rx mg-hydrochlorothiazide 25 mg capsule insulin glargine 100 unit/mL (3 See Rx Instructions SQ DAILY #30 ml 06/16/19 04/20/20 Rx mL) subcutaneous pen ascorbic acid (vitamin C) [Vitamin 500 mg PO DAILY 04/20/20 04/20/20 History C] aspirin 81 mg PO DAILY 04/20/20 04/20/20 History cholecalciferol (vitamin D3) 125 mcg PO DAILY 08/06/20 08/06/20 History [Vitamin D3] cyanocobalamin (vitamin B-12) 1,000 mcg PO DAILY 04/20/20 04/20/20 History acetaminophen 325 mg PO Q6H PRN 5 Days #20 tab 04/21/20 Rx aspirin 81 mg PO QAM 30 Days #30 tab 04/21/20 Rx atorvastatin 10 mg PO QAM 30 Days #30 tab 04/21/20 Rx lisinopril 40 mg PO DAILY 30 Days #30 tab 04/21/20 Rx metoprolol tartrate 12.5 mg PO BID 30 Days #30 tab 04/21/20 Rx Allergies Allergy/AdvReac Type Severity Reaction Status Date / Time Penicillins Allergy Intermediate BODY RASH Verified 04/20/20 11:57 dapagliflozin Allergy Unknown unable to Verified 04/20/20 11:57 function levofloxacin [From Levaquin] Allergy Unknown Unknown Verified 04/20/20 13:04 wheat Allergy Unknown body Verified 04/20/20 11:57 rejects house dust AdvReac Mild Sneezing Verified 04/20/20 13:04 pollen extracts AdvReac Unknown Unknown Verified 04/20/20 13:04 Past Med/Surg History Medical History Chronic kidney disease, stage III (moderate) (Chronic) DM II (diabetes mellitus, type II), controlled (Chronic) History of breast cancer (Chronic) dx in 2010, s/p XRT Hypertension (Chronic) Obesity, morbid, BMI 40.0-49.9 (Chronic) Obstructive sleep apnea (Chronic) on CPAP Surgical History H/O hernia repair H/O partial mastectomy History of hysterectomy with bilateral oophorectomy Family History Other Coronary heart disease Hypertension Kidney disease Social History Smoking Status: Never smoker Second Hand Exposure: No; Do You Dip or Chew Tobacco: No; Hx Alcohol Use: No Hx Substance Use: No Preferred Language: Azeri Communication Ability: Effective Biology Instructor Required: No Beliefs That Will Affect Care: None Current Living Situation: Alone Other Information That Helps Us Care for You: No Feels Safe at Home: Yes Safety Concerns: Feels Safe At This Time Review of Systems A total of 10 systems reviewed and were otherwise negative Physical Exam Vital Signs Vital Signs - 24 hr 04/20/20 11:42 04/20/20 11:51 Temperature 36.7 C Temperature Source Oral Pulse Rate 78 Respiratory Rate 20 Respiratory Depth Normal Blood Pressure 199/71 H Blood Pressure Mean 113 Pulse Oximetry 97 97 Oxygen Delivery Method Room Air Room Air Sepsis Recent Fever Within 48 Hours No Sepsis New/Unexplained Change in Mental Status N/A Sepsis Action Taken by Nursing No Action Required VITAL SIGNS - Vital signs and nursing notes were reviewed. GENERAL - 69-year-old female appearing stated age who is in no acute distress. Communicates well with provider and answers questions appropriately. SKIN - Without rashes. HEAD - NC/AT. EYES - PERRL with EOMI bilaterally. Sclera anicteric. Palpebral conjunctiva pink and moist with no injection noted. EARS - No deformities of external structures noted on gross examination bilaterally. No pain elicited with palpation of the tragus bilaterally. External auditory canals without discharge or otorrhea. Tympanic membranes pearly pinedo without retraction or bulging. No fluid or purulent material visualized behind the TM. Handle of malleus, umbo, cone of light, pars tensa/flaccid all easily visualized. NOSE - Midline and without cyanosis. No epistaxis or purulent drainage noted. Septum midline without deviation or septal hematoma noted. MOUTH/OROPHARYNX - Without perioral cyanosis. Buccal mucosa pink and moist and without leukoplakia. Tongue midline with equal elevation of palate bilaterally. No tonsillar hypertrophy, erythema, or exudates noted. dentition noted. NECK - Neck with FROM. Supple to palpation. lymphadenopathy noted. No nuchal r igidity. LUNGS - Chest wall symmetric without accessory muscle use, intercostals retractions, or central cyanosis. Normal vesicular breath sounds CTA B/L. No wheezes, rales, or rhonchi appreciated. CARDIAC - RRR with S1/S2. No murmur, rubs, or gallops appreciated. ABDOMEN - Abdominal contour without pulsations or visible masses. BS normoactive all four quadrants. No tenderness, palpable masses, hepatosplenomegaly, or ascites noted. EXTREMITIES - No clubbing or peripheral cyanosis. No pretibial edema present. +3/5 radial, posterior tibial, and dorsalis pedis pulses palpated throughout. +5 /5 strength noted in UE/LE bilaterally. NEUROLOGIC - Cranial nerves II through XII grossly intact. Sensory intact to light touch throughout. Patellar reflexes +2/4. PSYCH - A&Ox3 and cooperates fully with examiner. Pt is very pleasant and interacts well with examiner. Course Administered Medications Discontinued Medications Acetaminophen (Tylenol) 650 mg PO Q4H PRN PRN Reason: Pain or Fever Stop: 05/20/20 12:55 Last Admin: 04/21/20 06:46 Dose: 650 mg Documented by: [id number] Admin: 04/20/20 19:30 Dose: 650 mg Documented by: [id number] Ascorbic Acid (Vitamin C) 500 mg PO DAILY [facility] Stop: 05/21/20 08:59 Last Admin: 04/21/20 08:03 Dose: 500 mg Documented by: [id number] Aspirin (Ecotrin Ectab) 81 mg PO QAM [facility] Stop: 05/21/20 08:59 Last Admin: 04/21/20 08:02 Dose: 81 mg Documented by: [id number] Aspirin (Ecotrin Ectab) 81 mg PO DAILY [facility] Stop: 05/21/20 08:59 Last Admin: 04/21/20 08:04 Dose: Not Given Documented by: [id number] Atorvastatin Calcium (Lipitor) 10 mg PO QAM [facility] Stop: 05/20/20 16:59 Last Admin: 04/21/20 08:16 Dose: Not Given Documented by: [id number] Admin: 04/20/20 17:53 Dose: Not Given Documented by: [id number] Cyanocobalamin (Vitamin B-12) 1,000 mcg PO DAILY [facility] Stop: 05/21/20 08:59 Last Admin: 04/21/20 08:04 Dose: 1,000 mcg Documented by: [id number] Heparin Sodium/Dextrose () 1 ea IV ONE ONE; Protocol Stop: 04/20/20 12:53 Last Admin: 04/20/20 14:52 Dose: Not Given Documented by: [id number] Hydralazine HCl (Hydralazine Hcl) 10 mg IV NOW STA Stop: 04/20/20 15:01 Last Admin: 04/20/20 15:21 Dose: Not Given Documented by: [id number] Sodium Chloride (Nss 1000ml) 500 mls @ 999 mls/hr IV .Q31M ONE Stop: 04/20/20 12:51 Last Infusion: 04/20/20 13:02 Dose: 0 mls/hr Documented by: [id number] Admin: 04/20/20 12:29 Dose: 999 mls/hr Documented by: [id number] Heparin Sodium/Dextrose (Heparin Sodium/Dextrose) 25,000 units in 500 mls @ 28 mls/hr IV .[id number] [facility]; Protocol Stop: 05/20/20 12:59 Last Titration: 04/21/20 07:30 Dose: 0 units/hr, 0 mls/hr Documented by: [id number] Cosigned by: [id number] Titration: 04/21/20 06:54 Dose: 1,400 units/hr, 28 mls/hr Documented by: [id number] Cosigned by: [id number] Titration: 04/21/20 02:48 Dose: 1,400 units/hr, 28 mls/hr Documented by: [id number] Cosigned by: [id number] Titration: 04/20/20 21:41 Dose: 1,400 units/hr, 28 mls/hr Documented by: [id number] Cosigned by: [id number] Admin: 04/20/20 14:51 Dose: 1,400 units/hr, 28 mls/hr Documented by: [id number] Cosigned by: [id number] Potassium Chloride (K Guru / Wtr) 10 meq in 100 mls @ 100 mls/hr IV Q1H [facility] Stop: 04/21/20 09:05 Last Infusion: 04/21/20 10:00 Dose: 0 mls/hr Documented by: [id number] Admin: 04/21/20 08:58 Dose: 100 mls/hr Documented by: [id number] Infusion: 04/21/20 08:30 Dose: 100 mls/hr Documented by: [id number] Admin: 04/21/20 07:30 Dose: 100 mls/hr Documented by: [id number] Insulin Aspart (Novolog Flexpen) 0 units SC ACHS [facility] Stop: 05/20/20 16:29 Last Admin: 04/21/20 12:03 Dose: 5 units Documented by: [id number] Cosigned by: [id number] Admin: 04/21/20 07:31 Dose: Not Given Documented by: [id number] Cosigned by: [id number] Admin: 04/20/20 21:45 Dose: 4 units Documented by: [id number] Cosigned by: [id number] Admin: 04/20/20 16:57 Dose: 4 units Documented by: [id number] Cosigned by: [id number] Insulin Glargine (Lantus Solostar Pen) 0 - 23 units SC BID [facility] Stop: 05/20/20 20:59 Last Admin: 04/21/20 08:09 Dose: Not Given Documented by: [id number] Admin: 04/20/20 21:43 Dose: 15 units Documented by: [id number] Cosigned by: [id number] Lisinopril (Zestril) 5 mg PO NOW ONE Stop: 04/20/20 13:22 Last Admin: 04/20/20 15:21 Dose: Not Given Documented by: [id number] Lisinopril (Zestril) 40 mg PO DAILY [facility] Stop: 05/21/20 08:59 Last Admin: 04/21/20 08:04 Dose: 40 mg Documented by: [id number] Lisinopril (Zestril) 40 mg PO 1600 ONE Stop: 04/20/20 16:01 Last Admin: 04/20/20 15:44 Dose: Not Given Documented by: [id number] Metoprolol Tartrate (Lopressor) 5 mg IV Q5M PRN PRN Reason: Tachycardia Stop: 05/20/20 12:20 Last Admin: 04/20/20 13:08 Dose: 5 mg Documented by: [id number] Admin: 04/20/20 12:29 Dose: 5 mg Documented by: [id number] Metoprolol Tartrate (Lopressor) 12.5 mg PO BID [facility] Stop: 05/20/20 20:59 Last Admin: 04/21/20 08:03 Dose: 12.5 mg Documented by: [id number] Admin: 04/20/20 21:42 Dose: 12.5 mg Documented by: [id number] Nitroglycerin (Nitro-Bid 2%) 1 inch EXT NOW STA Stop: 04/20/20 12:28 Last Admin: 04/20/20 12:34 Dose: 1 inch Documented by: [id number] Nitroglycerin (Nitro-Bid 2%) 2 inch EXT Q6H [facility] Stop: 05/20/20 14:59 Last Admin: 04/21/20 02:42 Dose: 2 inch Documented by: [id number] Admin: 04/20/20 21:42 Dose: 2 inch Documented by: [id number] Admin: 04/20/20 15:44 Dose: 2 inch Documented by: [id number] Potassium Chloride (Klor-Con M20) 40 meq PO NOW STA Stop: 04/20/20 12:28 Last Admin: 04/20/20 12:34 Dose: 40 meq Documented by: [id number] Potassium Chloride (Klor-Con M20) 40 meq PO NOW STA Stop: 04/21/20 06:04 Last Admin: 04/21/20 06:43 Dose: 40 meq Documented by: [id number] Potassium Chloride (Klor-Con M20) 40 meq PO NOW STA Stop: 04/21/20 07:06 Last Admin: 04/21/20 07:30 Dose: 40 meq Documented by: [id number] Triamterene/HCTZ (Dyazide 37.5/25mg) 1 cap PO DAILY [facility] Stop: 05/21/20 08:59 Last Admin: 04/21/20 08:04 Dose: 1 cap Documented by: [id number] Vitamin D (Vitamin D3) 5,000 units PO DAILY [facility] Stop: 05/21/20 08:59 Last Admin: 04/21/20 08:05 Dose: 5,000 units Documented by: [id number] Medical Decision Making Differential Diagnosis Cardiac ischemia, aortic dissection, pulmonary embolism, pneumothorax, pneumonia, pericarditis, myocarditis, esophageal rupture, GERD, cholecystitis, pancreatitis, musculoskeletal, as well as other pathologies. Medical Records Attestation: I reviewed the patient's medical records. Home Medications Current Medication List: was personally reviewed by me Laboratory Data Attestation: I reviewed the patient's lab results. Result diagrams: 04/20/20 11:48 04/21/20 11:36 Lab Results 04/20/20 04/20/20 04/20/20 Range/Units 11:48 11:48 11:48 WBC 7.26 (4.8-10.8) K/uL RBC 4.19 L (4.2-5.4) M/uL Hgb 11.9 L (12.0-16.0) g/dL Hct 36.8 L (37-47) % MCV 87.8 (80-100) fL MCH 28.4 (25-34) pg MCHC 32.3 (32-36) g/dL RDW Std Deviation 50.8 H (36.4-46.3) fL RDW Coeff of Evonne 15.9 H (11.5-14.5) % Plt Count 193 (130-400) K/uL MPV 10.2 (7.4-10.4) fL Immature Gran % (Auto) 0.1 % Neut % (Auto) 71.9 % Lymph % (Auto) 19.1 % Floyd % (Auto) 5.5 % Eos % (Auto) 3.3 % Baso % (Auto) 0.1 % Neut # (Auto) 5.21 (1.4-6.5) K/uL Lymph # (Auto) 1.39 (1.2-3.4) K/uL Floyd # (Auto) 0.40 (0.11-0.59) K/uL Eos # (Auto) 0.24 (0-0.5) K/uL Baso # (Auto) 0.01 (0-0.2) K/uL Immature Gran # (Auto) 0.01 (0.00-0.02) K/uL PT 10.8 (9.0-12.0) Seconds INR 1.0 (0.9-1.1) APTT 27.6 (21.0-31.0) Seconds PTT Ratio 1.0 Sodium 140 (136-145) mmol/L Potassium 3.1 L (3.5-5.1) mmol/L Chloride 104 (98-107) mmol/L Carbon Dioxide 31 (21-32) mmol/L Anion Gap 5.0 (3-11) BUN 22 H (7-18) mg/dl Creatinine 1.31 H (0.6-1.2) mg/dl Est Cr Clr Drug Dosing 49.5 ml/min Est GFR ( Amer) 48.0 Est GFR (Non-Af Amer) 41.4 BUN/Creatinine Ratio 17.1 (10-20) Glucose 94 (70-99) mg/dl Calcium 8.8 (8.5-10.1) mg/dl Total Bilirubin 0.5 (0.2-1) mg/dl AST 19 (15-37) U/L ALT 27 (12-78) U/L Alkaline Phosphatase 91 (45-117) U/L Total Creatine Kinase 237 H (26-192) U/L CK-MB (CK-2) 7.0 H (0.5-3.6) ng/ml CK/CKMB % Calc 3.0 (0-3.0) Troponin I 0.029 (0-0.045) ng/ml Total Protein 7.2 (6.4-8.2) gm/dl Albumin 3.2 L (3.4-5.0) gm/dl Globulin 4.0 (2.5-4.0) gm/dl Albumin/Globulin Ratio 0.8 L (0.9-2) Lipase 69 L (73-393) U/L Imaging Data Radiologist's Impression: [place], [place] [phone] XRay Report Patient: DELLA ADAMS Date: 04/20/20 MR#: [id number]: [address] Acct ID:[id number]: Date: 1City Zip: [place] [address] Age: 69Location: ED Sex: F Room/Bed: Att Phy:Diagnosis: chest pain Mallika Phy: Brooke Fuentes MDService Date: 04/20/20 Fam Phy:Interpreting Phy: Lucio Ferraro MD Admit Phy: Ordering Phy: Salvador Presley MD cc: ~ XR chest 1V portable CLINICAL HISTORY: Atypical chest pain COMPARISON STUDY: 08/08/2019 FINDINGS: The cardiac and mediastinal contours are normal. There is no evidence of focal pulmonary consolidation. There is no evidence of failure. No pleural effusions are visualized.[There is a total right shoulder arthroplasty. IMPRESSION: No active disease in the chest. ACT 112: Negative or not required by law. Electronically signed by: Lucio Ferraro M.D. 04/20/2020 12:06 PM Dictated: 04/20/20 1206 Transcribed: 04/20/20 1206 ECG Data Attestation: I personally reviewed and interpreted this ECG as follows: Indication: chest pain Rate (beats per minute): 70 Rhythm: sinus with SA Findings: + T-wave inversion (Lateral); no ST elevation Comparison ECG Date: from (08/08/2019) Change: the following changes noted (T wave inversions in the lateral leads) Blood Pressure Blood Pressure Findings: Elevated blood pressure Blood Pressure Disposition: further management by hospitalist MDM Narrative This is a 69-year-old female who presents emergency department complaining of chest pain. The patient's blood pressure is grossly elevated upon arrival. She was given Nitropaste as well as IV labetalol here in the emergency department to get her blood pressure under better control. Her troponin is elevated as well as her CK-MB. For this reason she was started on IV heparin. I did discuss the case with the hospitalist service who did agree to admit the patient. Patient was seen and evaluated as above in room C10. Review was performed of nursing notes and vital signs. I did review pertinent previous visits and patient history. After obtaining a thorough history and physical examination the above work up was performed. An order was placed for continuous cardiac monitoring. The monitor shows a rate of 60 with Normal SInus rhythm. The patient was evaluated during the global COVID-19 pandemic, and that diagnosis was suspected/considered upon their initial presentation. Their evaluation, treatment and testing was consistent with current guidelines for patients who present with complaints or symptoms that may be related to COVID- 19. Impression & Plan Chest pain, Abnormal EKG, Hypertensive urgency Critical Care Time I have personally spent greater than 90 minutes of critical care time in the direct management of this patient. This includes bedside care, interpretation of diagnostic studies, and testing, discussion with consultants, patient, and family members, and other required patient management activities. This 90 minutes is in excess of all separately billable procedures. Discharge Plan Visit Data *Final* Discharge Date/Time: 04/20/20 13:28 Chief Complaint: Chest Pain Stated Complaint: chest pain ED Provider: Salvador Presley Discharge Problem: Chest pain, Abnormal EKG, Hypertensive urgency Patient Disposition: Admitted As Inpatient Condition: Good Discharge Instructions Interventions: ED Discharge Assessment Last Done: 04/20/20 13:28 Discharge Problem: Chest pain Qualifiers: Chest pain type: unspecified Qualified Code(s): R07.9 - Chest pain, unspecified
[2020-04-20 12:21] LABS: Albumin Globulin Ratio 0.8 (0.9-2); Bilirubin,Total 0.5 mg/dl (0.2-1); Total Protein 7.2 gm/dl (6.4-8.2); Troponin I 0.029 ng/ml (0-0.045)
[2020-04-20] MEDS ORDERED: SODIUM CHLORIDE 0.9% 1000ML 500 ML IV ONE (12:21)
[2020-04-20] MEDS ORDERED: POTASSIUM CHLORIDE 20 MEQ TABCR PO STA (12:27)
[2020-04-20] MEDS ORDERED: NITROGLYCERIN 2% OINTMENT 30GM TUBE EXT STA (12:27)
[2020-04-20] MEDS: METOPROLOL TARTRATE 1 MG/ML VIAL IV PRN ×2 (12:29→13:08)
--- NOTE | 2020-04-20 12:51 | History & Physical Report ---
Date of Service April 20, 2020 Assessment & Plan (1) Hypertensive urgency: This is a 69-year-old female with PMH of hypertension, type 2 diabetes on insulin, CKD III, SAM on CPAP, history of breast cancer and endometrial cancer s/p XRT and other medical problems listed below who presents with chest pain x 2 weeks and was found to have hypertensive urgency vs NSTEMI. -Consistent aching left sided chest pain x 2 weeks in setting of elevated BP, resolved with ntg -EKG with T wave inversions in lateral leads. Initial troponin within normal range of 0.029 but CK elevated at 237, CK-MB of 7 -BP remains elevated at 199/71 so given IV Lopressor 10mg IV total in ED. Continue 1" nitro paste -Monitor on telemetry, optimize BP, repeat troponin now and Q6H -Discussed with Dr. Fraga, who recommends initiating IV heparin. Adding Lopressor 12.5mg PO BID. TTE ordered -A1c and fasting lipid panel for AM (2) Chronic kidney disease, stage III (moderate): Baseline Cr ~ mid-1s. Continue to monitor (3) DM II (diabetes mellitus, type II), controlled: Last a1c >3 mo ago around 6, per patient. Will repeat for morning -Basal bolus insulin per protocol -BSG AC HS (4) Hypertension: Continue Maxzide from home. Likely to need additional agents upon discharge (5) Obstructive sleep apnea: CPAP HS DVT Ppx: IV heparin Code status: FULL PCP: Demetrio Baker Dispo: Admitted to PCU. Plan to return home once medically stable. Patient seen in collaboration with Dr. Carrington. Please see addendum. History of Present Illness Chief Complaint: Chest pain Primary Care Provider: Domenic Baker, This is a 69-year-old female with PMH of hypertension, type 2 diabetes on insulin, CKD III, SAM on CPAP, history of breast cancer and endometrial cancer s/p XRT and other medical problems listed below who presents with chest pain x 2 weeks. Patient established care with Dr. Domenic Valencia this morning and mentioned pain under her left breast over the past 2 weeks. Pain is described as an ache with some radiation laterally towards her ribs. Pain is present at all times but is exacerbated multiple times a day, sometimes occurring at rest and sometimes with exertion. Denies any associated lightheadedness, shortness of breath, nausea or vomiting. Denies any previous history of chest pain. Had a normal echocardiogram in 2005. Denies any other symptoms. No fever, chills, visual changes, headache, wheezing, palpitations, abdominal pain, dysuria, diar ashkan or constipation. EKG performed in clinic with evidence of T wave inversion. BP elevated at 182/102 and was given clonidine as well as aspirin and nitroglycerin. Chest pain was resolved with nitroglycerin. Patient sent to ED for further evaluation. Allergies Allergy/AdvReac Type Severity Reaction Status Date / Time Penicillins Allergy Intermediate BODY RASH Verified 04/20/20 11:57 dapagliflozin Allergy Unknown unable to Verified 04/20/20 11:57 function levofloxacin [From Levaquin] Allergy Unknown Unknown Verified 04/20/20 13:04 wheat Allergy Unknown body Verified 04/20/20 11:57 rejects house dust AdvReac Mild Sneezing Verified 04/20/20 13:04 pollen extracts AdvReac Unknown Unknown Verified 04/20/20 13:04 Home Medications Home Medications Medication Instructions Recorded Confirmed Type insulin glargine 100 unit/mL (3 23 units SUBCUT BID #3 ml 03/13/19 04/20/20 History mL) subcutaneous pen lisinopril 40 mg tablet 40 mg PO DAILY #90 tab 03/13/19 04/20/20 History meclizine 25 mg tablet 25 mg PO UD PRN tab 03/13/19 04/20/20 History nystatin-triamcinolone 100,000 1 appln TOPICAL UD PRN gm 03/13/19 04/20/20 History unit/g-0.1 % topical cream triamterene 37.5 1 cap PO DAILY #90 cap 04/22/19 04/20/20 Rx mg-hydrochlorothiazide 25 mg capsule insulin glargine 100 unit/mL (3 See Rx Instructions SQ DAILY #30 ml 06/16/19 04/20/20 Rx mL) subcutaneous pen ascorbic acid (vitamin C) [Vitamin 500 mg PO DAILY 04/20/20 04/20/20 History C] aspirin 81 mg PO DAILY 04/20/20 04/20/20 History cholecalciferol (vitamin D3) 125 mcg PO DAILY 04/20/20 04/20/20 History [Vitamin D3] cyanocobalamin (vitamin B-12) 1,000 mcg PO DAILY 04/20/20 04/20/20 History Past Med/Surg History Medical History (Updated 04/20/20 @ 13:54 by Isamar Burton PA-C) Chronic kidney disease, stage III (moderate) (Chronic) DM II (diabetes mellitus, type II), controlled (Chronic) History of breast cancer (Chronic) dx in 2010, s/p XRT Hypertension (Chronic) Obesity, morbid, BMI 40.0-49.9 (Chronic) Obstructive sleep apnea (Chronic) on CPAP Surgical History H/O hernia repair H/O partial mastectomy History of hysterectomy with bilateral oophorectomy Family History Other Coronary heart disease Hypertension Kidney disease Social History Smoking Status: Never smoker Second Hand Exposure: No; Do You Dip or Chew Tobacco: No; Hx Alcohol Use: No Hx Substance Use: No Preferred Language: Luxembourger Communication Ability: Effective Hand Spray Operator Required: No Beliefs That Will Affect Care: None Current Living Situation: Alone Other Information That Helps Us Care for You: No Feels Safe at Home: Yes Safety Concerns: Feels Safe At This Time Review of Systems Review of Systems: At least ten systems reviewed and negative except as noted in the HPI. Physical Exam Physical Exam: General Appearance: WD/WN, vitals as above, NAD, sitting up in bed, obese, conversing easily Head: normocephalic, atraumatic Eyes: normal inspection, PERRL, conjunctivae normal, anicteric sclerae ENT: external ear and nose normal, oropharynx normal Neck: trachea midline, no thyromegaly normal visual inspection Respiratory: normal respiratory effort, lungs clear to auscultation, no wheeze, rales, rhonchi Cardiovascular: regular rate, rhythm, no murmur, normal peripheral pulses, 1+ BLE pitting edema. Vessels: no JVD Chest: normal inspection of chest, non-tender to palpation Abdomen/GI: normal bowel sounds, soft, nontender, no hepatosplenomegaly Extremities/Musculoskeletal: no cyanosis or clubbing, extremities motor strength 5/5 Neurologic: PERRL, EOMI, accommodation nl, no face palsy, no dysarthria, CN's II-XI intact bilaterally and moves all extremities Psychiatric: A+Ox3, euthymic affect Skin: no rashes, normal color, warm/dry Results & Data Results & Data ([facility]) Vital Signs (Past 12 Hours) Vital Signs Temp Pulse Pulse Resp BP BP Pulse Ox 04/20/20 12:24 65 18 193/86 H 97 04/20/20 11:51 97 04/20/20 11:42 36.7 C 78 20 199/71 H 97 Laboratory Results Short CBC 04/20/20 04/20/20 Range/Units 11:48 11:48 WBC 7.26 (4.8-10.8) K/uL Hgb 11.9 L (12.0-16.0) g/dL Hct 36.8 L (37-47) % Plt Count 193 (130-400) K/uL Troponin I 0.029 (0-0.045) ng/ml BMP 04/20/20 11:48 Sodium 140 Potassium 3.1 L Chloride 104 Carbon Dioxide 31 BUN 22 H Creatinine 1.31 H Glucose 94 Calcium 8.8 Cardiac Enzymes 04/20/20 Range/Units 11:48 Total Creatine Kinase 237 H (26-192) U/L CK-MB (CK-2) 7.0 H (0.5-3.6) ng/ml Troponin I 0.029 (0-0.045) ng/ml Liver Function 04/20/20 Range/Units 11:48 Total Bilirubin 0.5 (0.2-1) mg/dl AST 19 (15-37) U/L ALT 27 (12-78) U/L Alkaline Phosphatase 91 (45-117) U/L Albumin 3.2 L (3.4-5.0) gm/dl Diagnostic Findings CXR: IMPRESSION: No active disease in the chest. ECG Rhythm: sinus with SA Findings: + T-wave inversion (lateral leads) Supervising Physician Co-Signing Physician Notes Attending addendum: Patient seen and examined, care coordinated with Isamar Burton PA-C 69-year-old female with past medical history of CKD stage III type 2 diabetes on insulin, hypertension, came to ER with complaint of left-sided chest pain heaviness on and off for last 2 weeks with symptoms radiation to left arm In the ER found to be hypertensive with systolic in 212/85 Patient was given sublingual nitro, Nitropaste, was chest pain-free during interview Patient denies of any shortness of breath or dyspnea on exertion or orthopnea Initial troponin negative EKG showed sinus rhythm with T wave inversion in lead I Vitals as per EMR Labs and images (chest x-ray/ ekg reviewed) Physical exam : Brief Please refer to Isamar Burton PA-C documentation for detail General: No sign of distress, HEENT: Unremarkable Heart: Regular S1-S2 no murmur gallop or no lower extremity edema Lungs: Clear to auscultate no wheeze or rales Abdomen: Soft nontender Extremity: No lower extremity mass, no rash or deformity. Normal strength Neuro: No focal neurological deficit chest pain /EKG change : possible due to hypergtensive urgency BP significantly elevated pt given nitro past , IV lopressor took home diuretic HCTZ /thiazide this am given EKG change and presentation with angina-cardiology consult requested admitted to PCU serial cardiac markers ordered resting ECHO Hypertensive urgency: management as outlined above cont nitropaste pt's home medications Lisinopril and HCTZ/thiazide added Lopressor 12.5 mg PO BID -per cardiology please refer to further documentation by Isamar Burton PA-C for discussion of other chronic issues Zohreh Carrington MD
[2020-04-20] MEDS ORDERED: Heparin IV Standard *NO* Bolus IV ONE (12:52)
[2020-04-20] MEDS ORDERED: POLYETHYLENE (MIRALAX) 17 GM PACK PO PRN (12:56)
[2020-04-20] MEDS ORDERED: ONDANSETRON INJ 2 MG/ML 2 ML VIAL IV PRN (12:56)
[2020-04-20] MEDS ORDERED: NITROGLYCERIN SL 0.4 MG/TAB TAB SL PRN (12:56)
[2020-04-20] MEDS ORDERED: HEPARIN SODIUM/DEXTROSE 25,000 UNITS/500 ML BAG IV SCH (13:00)
[2020-04-20] MEDS ORDERED: lisinopriL 5 MG TAB PO ONE (13:21)
[2020-04-20] MEDS ORDERED: HEPARIN SODIUM (PORCINE) 7,500 UNITS in SYRINGE 0 ML SQ SCH (14:00)
[2020-04-20] MEDS ORDERED: NYSTATIN/TRIAMCIN CR 15 GM TUBE EXT PRN (14:00)
[2020-04-20] MEDS ORDERED: GLUCAGON FOR INJ 1 MG VIAL SQ PRN (14:34)
[2020-04-20] MEDS ORDERED: GLUCOSE 10 TABS/TUBE PO PRN (14:34)
[2020-04-20] MEDS ORDERED: CARBOHYDRATES FOR HYPOGLYCEMIA PO PRN (14:34)
[2020-04-20] MEDS ORDERED: GLUCOSE 40% GEL 15 GM TUBE PO PRN (14:34)
[2020-04-20] MEDS ORDERED: DEXTROSE 50% 50 ML SYRINGE IV PRN (14:34)
[2020-04-20] MEDS ORDERED: HydrALAZINE HCL 20 MG/ML VIAL IV STA (15:00)
[2020-04-20] MEDS: NITROGLYCERIN 2% OINTMENT 30GM TUBE EXT SCH ×2 (15:44→21:42)
[2020-04-20] MEDS ORDERED: lisinopriL 40 MG TAB PO ONE (16:00)
--- NOTE | 2020-04-20 16:29 | Cardiology Consultation ---
Date of Consultation April 20, 2020 Assessment & Plan (1) Chest pain: (2) Hypertensive urgency: 69 year old female with a history of hypertension , DM2 , and mild dyslipidemia (LDL 133 mg/dl in 02/2019) present with 2 weeks of chest discomfort and systolic blood pressure of 200 mm Hg. She state she has not missed any recent medication. BP improved at present. EKG with lateral T wave changes suggestive of ischemia, new compared to 2019. Echo with normal LV wall motion, mild concentric LVH, Grade II diastolic dysfunction. Troponin non undetectable, however still within normal limits. Difficult to determine if this is all due to uncontrolled hypertension, or if elevated BP is unmasking underlying coronary heart disease. Advance diet now. Keep NPO after midnight for further ischemic work up. Continue ASA, beta ervin, UF heparin, statin. History of Present Illness Attending Physician: Zohreh Carrington MD History of Present Illness Dionna Valencia is a 69 year old female seen in cardiology consultation per the request of Dr Carrington for the evaluation of chest discomfort. Dionna described chest discomfort under her left breast that radiates to the midline that has been present x 2 weeks. 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 The discomfort persisted to today and she was referred to the ED. On arrival her initial blood pressure was 199/71 with follow up reading of 212/95. After receiving metoprolol 5 mg x 2 doses and topical nitroglycerin , repeat BP is 152/64. At the time of my assessment her chest pain had completely resolved. Family History: Mother in her 80s with no h/o heart disease Father at at 69, no heart disease, known stroke Sister: h/o stent, of [place] Social History: Lives alone. Daughter, Supriya Diego, lives nearby non smoker works in clothing sales Allergies Allergy/AdvReac Type Severity Reaction Status Date / Time Penicillins Allergy Intermediate BODY RASH Verified 04/20/20 11:57 dapagliflozin Allergy Unknown unable to Verified 04/20/20 11:57 function levofloxacin [From Levaquin] Allergy Unknown Unknown Verified 04/20/20 13:04 wheat Allergy Unknown body Verified 04/20/20 11:57 rejects house dust AdvReac Mild Sneezing Verified 04/20/20 13:04 pollen extracts AdvReac Unknown Unknown Verified 04/20/20 13:04 Home Medications Home Medications Medication Instructions Recorded Confirmed Type insulin glargine 100 unit/mL (3 23 units SUBCUT BID #3 ml 03/13/19 04/20/20 History mL) subcutaneous pen lisinopril 40 mg tablet 40 mg PO DAILY #90 tab 03/13/19 04/20/20 History meclizine 25 mg tablet 25 mg PO UD PRN tab 03/13/19 04/20/20 History nystatin-triamcinolone 100,000 1 appln TOPICAL UD PRN gm 03/13/19 04/20/20 History unit/g-0.1 % topical cream triamterene 37.5 1 cap PO DAILY #90 cap 04/22/19 04/20/20 Rx mg-hydrochlorothiazide 25 mg capsule insulin glargine 100 unit/mL (3 See Rx Instructions SQ DAILY #30 ml 06/16/19 04/20/20 Rx mL) subcutaneous pen ascorbic acid (vitamin C) [Vitamin 500 mg PO DAILY 04/20/20 04/20/20 History C] aspirin 81 mg PO DAILY 04/20/20 04/20/20 History cholecalciferol (vitamin D3) 125 mcg PO DAILY 04/20/20 04/20/20 History [Vitamin D3] cyanocobalamin (vitamin B-12) 1,000 mcg PO DAILY 04/20/20 04/20/20 History Patient History Medical History Chronic kidney disease, stage III (moderate) (Chronic) DM II (diabetes mellitus, type II), controlled (Chronic) History of breast cancer (Chronic) dx in 2010, s/p XRT Hypertension (Chronic) Obesity, morbid, BMI 40.0-49.9 (Chronic) Obstructive sleep apnea (Chronic) on CPAP Surgical History H/O hernia repair H/O partial mastectomy History of hysterectomy with bilateral oophorectomy Family History Other Coronary heart disease Hypertension Kidney disease Social History Smoking Status: Never smoker Second Hand Exposure: No; Do You Dip or Chew Tobacco: No; Hx Alcohol Use: No Hx Substance Use: No Preferred Language: Lao Communication Ability: Effective Hogshead Roller Required: No Beliefs That Will Affect Care: None Current Living Situation: Alone Other Information That Helps Us Care for You: No Feels Safe at Home: Yes Safety Concerns: Feels Safe At This Time Review of Systems Review of Systems: All systems reviewed & are unremarkable except as noted in HPI & below Physical Exam Physical Exam: Temp Pulse Resp BP Pulse Ox 36.6 C 67 18 152/64 H 96 04/20/20 15:19 04/20/20 15:55 04/20/20 15:19 04/20/20 15:19 04/20/20 15:19 Constitutional: WD/WN, vitals as above Respiratory: normal respiratory effort, lungs clear to auscultation Cardiovascular: RRR, no murmur, no edema Gastrointestinal (Abdomen): normal bowel sounds, soft, nontender, no hepatosplenomegaly Neurologic: PERRL, EOMI, accommodation nl, no face palsy, no dysarthria Results & Data ([facility]) Vital Signs (Past 12 Hours) Vital Signs Temp Pulse Pulse Resp BP BP Pulse Ox 04/20/20 15:55 67 04/20/20 15:19 36.6 C 66 18 152/64 H 96 04/20/20 14:00 36.3 C L 66 18 195/86 H 97 04/20/20 13:55 63 04/20/20 13:20 212/95 H 04/20/20 13:08 70 197/89 H 04/20/20 13:01 197/89 H 04/20/20 12:24 65 18 193/86 H 97 04/20/20 11:51 97 04/20/20 11:42 36.7 C 78 20 199/71 H 97 Laboratory Results Cardiac Enzymes 04/20/20 04/20/20 Range/Units 11:48 13:21 AST 19 (15-37) U/L CK-MB (CK-2) 7.0 H (0.5-3.6) ng/ml Troponin I 0.029 0.038 (0-0.045) ng/ml Coagulation 04/20/20 Range/Units 11:48 PT 10.8 (9.0-12.0) Seconds APTT 27.6 (21.0-31.0) Seconds CBC 04/20/20 Range/Units 11:48 WBC 7.26 (4.8-10.8) K/uL RBC 4.19 L (4.2-5.4) M/uL Hgb 11.9 L (12.0-16.0) g/dL Hct 36.8 L (37-47) % Plt Count 193 (130-400) K/uL Neut # (Auto) 5.21 (1.4-6.5) K/uL Lymph # (Auto) 1.39 (1.2-3.4) K/uL [place] # (Auto) 0.40 (0.11-0.59) K/uL Eos # (Auto) 0.24 (0-0.5) K/uL Baso # (Auto) 0.01 (0-0.2) K/uL Comprehensive Metabolic Panel 04/20/20 Range/Units 11:48 Sodium 140 (136-145) mmol/L Potassium 3.1 L (3.5-5.1) mmol/L Chloride 104 (98-107) mmol/L Carbon Dioxide 31 (21-32) mmol/L BUN 22 H (7-18) mg/dl Creatinine 1.31 H (0.6-1.2) mg/dl Glucose 94 (70-99) mg/dl Calcium 8.8 (8.5-10.1) mg/dl AST 19 (15-37) U/L ALT 27 (12-78) U/L Alkaline Phosphatase 91 (45-117) U/L Total Protein 7.2 (6.4-8.2) gm/dl Albumin 3.2 L (3.4-5.0) gm/dl Intake and Output 04/20/20 04/20/20 04/20/20 06:59 14:59 22:59 Intake Total 500 / 500 Output Total 500 / 500 Balance 0 / 0 Intake: IV 500 / 500 Nss 1000ML 500 ml @ 999 mls/hr 500 / 500 IV .Q31M ONE Rx#:[id number] Output: Urine 500 / 500 Other: Weight 109.5 kg Patient Weight 04/21/20 06:59 Weight 109.5 kg
[2020-04-20] MEDS: INSULIN ASPART 100 UNITS/ML 3 ML PEN SC SCH ×2 (16:57→21:45)
--- NOTE | 2020-04-20 17:34 | Electrocardiogram Report ---
Test Reason : Blood Pressure : / mmHG Vent. Rate : 070 BPM Atrial Rate : 070 BPM P-R Int : 136 ms QRS Dur : 086 ms QT Int : 408 ms P-R-T Axes : 064 031 119 degrees QTc Int : 440 ms Sinus rhythm with marked sinus arrhythmia T wave abnormality, consider lateral ischemia Abnormal ECG When compared with ECG of 08-AUG-2019 10:05, T wave inversion now evident in Lateral leads QT has shortened Confirmed by Cali Reina ([id number]) on 04/20/2020 5:34:08 PM Referred By: Confirmed By:Glenn Reina
--- NOTE | 2020-04-20 17:36 | Electrocardiogram Report ---
Test Reason : Blood Pressure : / mmHG Vent. Rate : 060 BPM Atrial Rate : 060 BPM P-R Int : 142 ms QRS Dur : 088 ms QT Int : 458 ms P-R-T Axes : 069 041 129 degrees QTc Int : 458 ms Normal sinus rhythm with sinus arrhythmia T wave abnormality, consider lateral ischemia Abnormal ECG When compared with ECG of 20-APR-2020 11:39, (unconfirmed) Inverted T waves have replaced nonspecific T wave abnormality in Anterior leads Confirmed by Cali Reina ([id number]) on 04/20/2020 5:36:19 PM Referred By: REFERRED SELF Confirmed By:Glenn Reina
[2020-04-20] MEDS: ATORVASTATIN 10 MG TAB PO SCH (17:53)
[2020-04-20] MEDS: ACETAMINOPHEN 325 MG TAB PO PRN (19:30)
[2020-04-20 19:53] LABS: Creatine Kinase MB 6.4 ng/ml (0.5-3.6); Troponin I 0.028 ng/ml (0-0.045)
[2020-04-20 21:35] LABS: Partial Thromboplastin Ratio 1.7
[2020-04-20 21:39] LABS: Partial Thromboplastin Time 47.6 Seconds (21.0-31.0)
[2020-04-20] MEDS: METOPROLOL TARTRATE 25 MG TAB PO SCH (21:42)
[2020-04-20] MEDS: INSULIN GLARGINE SOLOSTAR 100 UNITS/ML 3 ML PEN SC SCH (21:43)
[2020-04-21 02:02] LABS: Partial Thromboplastin Ratio 2.2
[2020-04-21 02:03] LABS: BUN Creatinine Ratio 17.5 (10-20); Calcium 8.2 mg/dl (8.5-10.1); Creatinine Clr Calc Pharmacy 51.1 ml/min; Est GFR (African American) 49.4; Est GFR (Non-African American) 42.6; Potassium 3.2 mmol/L (3.5-5.1)
[2020-04-21 02:07] LABS: Troponin I 0.02 ng/ml (0-0.045)
[2020-04-21 02:15] LABS: Partial Thromboplastin Time 60.2 Seconds (21.0-31.0)
[2020-04-21] MEDS: NITROGLYCERIN 2% OINTMENT 30GM TUBE EXT SCH (02:42)
[2020-04-21] MEDS ORDERED: POTASSIUM CHLORIDE 20 MEQ TABCR PO STA ×2 (06:03→07:05)
[2020-04-21 06:22] LABS: Estimated Average Glucose 140 mg/dl; Hemoglobin A1C 6.5 % (4.5-5.6)
[2020-04-21] MEDS: ACETAMINOPHEN 325 MG TAB PO PRN (06:46)
[2020-04-21] MEDS ORDERED: ACETAMINOPHEN 325 MG TAB PO PRN (07:07)
[2020-04-21 07:15] VITALS: O2SAT 96
[2020-04-21] MEDS: POTASSIUM CHLORIDE / WTR 10 MEQ/100 ML PLCT IV SCH ×2 (07:30→08:58)
[2020-04-21] MEDS: INSULIN ASPART 100 UNITS/ML 3 ML PEN SC SCH ×2 (07:31→12:03)
[2020-04-21] MEDS: METOPROLOL TARTRATE 25 MG TAB PO SCH (08:03)
--- NOTE | 2020-04-21 08:08 | Cardiology Progress Note ---
Date of Service April 21, 2020 Assessment & Plan (1) Chest pain: Chest discomfort resolved. Her symptoms are somewhat atypical for angina as it had persisted over 2 weeks, and were present at rest and with aerobic activity. She notes that at her job, her tasks include performing multiple chores with her arms above her head. On exam this morning both Dr. Villagran and I appreciated that there is point tenderness and reproducibility of her pain with palpation under her left breast at the margin of the rib there. (2) Hypertensive urgency: Patient with systolic blood pressure readings of 200 mmHg on presentation that persisted for several hours yesterday ultimately responded to medication treatment. She states that she has been adherent to her medications. We will continue her outpatient medication regimen, and add metoprolol. (3) Abnormal EKG: Although her symptoms are somewhat atypical for angina, she certainly has risk factors of coronary heart disease given her age, history of diabetes, hypertension, dyslipidemia, and family history of coronary heart disease. She developed new prominent T wave inversions in the lateral leads on repeat EKG performed yesterday at 3:34 PM, much different compared to her previous historical EKG tracings dating back to 2019. Although her troponin levels were not in the undetectable range, they were still within normal limits. I discuss ed with her that although her symptoms were somewhat atypical for angina, given her risk factors and the significant EKG changes, I do not think a stress test would be helpful at this point, and I recommended proceeding with coronary angiography for definitive evaluation. We discussed an alternative cause of her EKG changes would be underlying hypertension with hypertensive heart disease. This would be supported by her echocardiogram with mild concentric left ventricular hypertrophy and grade 2 diastolic dysfunction noted. After discussing the benefits and risks of cardiac catheterization, the patient favors ongoing optimization of risk factors/medical therapy, and follow-up rather than cardiac catheterization today. I counseled her that I thought this was a reasonable approach, but that she has recurrent symptoms of chest pressure with exertion that she needs to return to the hospital. Outpatient cardiology follow-up will be arranged within an interval of 1 to 2 weeks. Recommend medication therapy including aspirin, beta-ervin, statin. Optimization of her blood pressure. Patient to ambulate and a repeat EKG will be obtained prior to consideration of discharge. (4) Dyslipidemia: Discharge on atorvastatin. Subjective Patient seen in follow-up of chest discomfort, hypertension, and abnormal EKG. She states that she felt well overnight. Her blood pressures have been under much better control overnight last night with resolution of the significant hypertension noted on presentation. Her most recent blood pressure reading this morning at 7:15 AM was 131/69. Telemetry reveals stable sinus rhythm in the range of 50 to 60 bpm. Review of Systems Review of Systems: All systems reviewed & are unremarkable except as noted in HPI & below Physical Exam Physical Exam: Temp Pulse Resp BP Pulse Ox 36.5 C 51 L 20 131/69 96 04/21/20 07:15 04/21/20 07:15 04/21/20 07:15 04/21/20 07:15 04/21/20 07:15 Constitutional: WD/WN, vitals as above Respiratory: normal respiratory effort, lungs clear to auscultation Cardiovascular: RRR, no murmur, no edema Gastrointestinal (Abdomen): normal bowel sounds, soft, nontender, no hepatosplenomegaly Neurologic: PERRL, EOMI, accommodation nl, no face palsy, no dysarthria Results & Data Vital Signs (Past 12 Hours) Vital Signs Temp Pulse Pulse Pulse Resp BP Pulse Ox 04/21/20 07:15 36.5 C 51 L 20 131/69 96 04/21/20 07:00 52 L 04/21/20 02:41 36.9 C 60 18 130/65 94 04/21/20 01:07 58 L 18 93 04/20/20 23:40 56 L 04/20/20 23:12 36.6 C 66 19 131/70 96 04/20/20 22:31 56 L 18 95 Laboratory Results Cardiac Enzymes 04/20/20 04/20/20 04/20/20 Range/Units 11:48 13:21 19:18 AST 19 (15-37) U/L CK-MB (CK-2) 7.0 H 6.4 H (0.5-3.6) ng/ml Troponin I 0.029 0.038 0.028 (0-0.045) ng/ml 04/21/20 Range/Units 01:25 AST (15-37) U/L CK-MB (CK-2) 5.0 H (0.5-3.6) ng/ml Troponin I 0.020 (0-0.045) ng/ml Coagulation 04/20/20 04/20/20 04/21/20 Range/Units 11:48 20:55 01:25 PT 10.8 (9.0-12.0) Seconds APTT 27.6 47.6 H* 60.2 H* (21.0-31.0) Seconds Lipids 04/21/20 Range/Units 01:25 Triglycerides 144 (0-150) mg/dl Cholesterol 173 (0-200) mg/dl HDL Cholesterol 33 mg/dl Cholesterol/HDL Ratio 5 CBC 04/20/20 Range/Units 11:48 WBC 7.26 (4.8-10.8) K/uL RBC 4.19 L (4.2-5.4) M/uL Hgb 11.9 L (12.0-16.0) g/dL Hct 36.8 L (37-47) % Plt Count 193 (130-400) K/uL Neut # (Auto) 5.21 (1.4-6.5) K/uL Lymph # (Auto) 1.39 (1.2-3.4) K/uL [place] # (Auto) 0.40 (0.11-0.59) K/uL Eos # (Auto) 0.24 (0-0.5) K/uL Baso # (Auto) 0.01 (0-0.2) K/uL Comprehensive Metabolic Panel 04/20/20 04/21/20 Range/Units 11:48 01:25 Sodium 140 143 (136-145) mmol/L Potassium 3.1 L 3.2 L (3.5-5.1) mmol/L Chloride 104 108 H (98-107) mmol/L Carbon Dioxide 31 30 (21-32) mmol/L BUN 22 H 22 H (7-18) mg/dl Creatinine 1.31 H 1.28 H (0.6-1.2) mg/dl Glucose 94 89 (70-99) mg/dl Calcium 8.8 8.2 L (8.5-10.1) mg/dl AST 19 (15-37) U/L ALT 27 (12-78) U/L Alkaline Phosphatase 91 (45-117) U/L Total Protein 7.2 (6.4-8.2) gm/dl Albumin 3.2 L (3.4-5.0) gm/dl Intake and Output 04/20/20 04/21/20 04/21/20 22:59 06:59 14:59 Intake Total 611.333 / 1769.400 658.067 / 1769.400 16.8 / 16.8 Output Total 400 / 1900 1000 / 1900 Balance 211.333 / -130.600 -341.933 / -130.600 16.8 / 16.8 Intake: IV 191.333 / 949.400 258.067 / 949.400 16.8 / 16.8 HEPARIN SODIUM/DEXTROSE 25,000 191.333 / 449.400 258.067 / 449.400 16.8 / 16.8 units In 500 ml @ 1,400 UNITS/ HR 28 mls/hr IV .[id number] [facility] Rx #:[id number] Oral 420 / 820 400 / 820 Output: Urine 400 / 1900 1000 / 1900 Emesis 0 / 0 Other: # Unmeasured Voids 1 Weight 108.6 kg
[2020-04-21] MEDS: INSULIN GLARGINE SOLOSTAR 100 UNITS/ML 3 ML PEN SC SCH (08:09)
[2020-04-21] MEDS: ATORVASTATIN 10 MG TAB PO SCH (08:16)
[2020-04-21] MEDS ORDERED: TRIAMTERENE/HCTZ 37.5/25MG CAP PO SCH (09:00)
[2020-04-21] MEDS ORDERED: lisinopriL 40 MG TAB PO SCH (09:00)
[2020-04-21] MEDS ORDERED: CYANOCOBALAMIN 500 MCG TABLET (VITAMIN B-12) PO SCH (09:00)
[2020-04-21] MEDS ORDERED: ASCORBIC ACID 500 MG TAB PO SCH (09:00)
[2020-04-21] MEDS ORDERED: lisinopriL 5 MG TAB PO SCH (09:00)
[2020-04-21] MEDS ORDERED: ASPIRIN 81 MG ECTAB PO SCH ×2 (09:00)
[2020-04-21] MEDS ORDERED: CHOLECALCIFEROL 1,000 UNITS 25 MCG TAB PO SCH (09:00)
--- NOTE | 2020-04-21 09:00 | Hospitalist Progress Note ---
Date of Service April 21, 2020 Assessment & Plan (1) Hypertensive urgency: Abnormal EKG Chest pain Dyslipidemia This is a 69-year-old female with PMH of hypertension, type 2 diabetes on insulin, CKD III, SAM on CPAP, history of breast cancer and endometrial cancer s/p XRT and other medical problems listed below who was sent to the emergency room by primary care doctor because of high blood pressure T wave inversions in the later leads and concerns of left sided chest pain -patient's blood pressure improved with nitropaste in the ED and IV Lopressor, oral Lopressor, cardiology consulted and empirically started on IV heparin. -during her work up troponins negative x 4 and normal echocardiogram -on hospitalist exam this AM, there is is point tenderness and reproducibility of her pain with palpation under her left breast at the margin of the rib there and this left sided chest pain likely musculoskeletal in nature from her job which requires repetitive motion of lifting her arms above her head. -as per cardiology on 04/21/2020 " Although her symptoms are somewhat atypical for angina, she certainly has risk factors of coronary heart disease given her age, history of diabetes, hypertension, dyslipidemia, and family history of coronary heart disease. She developed new prominent T wave inversions in the lateral leads on repeat EKG performed yesterday at 3:34 PM, much different compared to her previous historical EKG tracings dating back to 2019. Although her troponin levels were not in the undetectable range, they were still within normal limits. I discussed with her that although her symptoms were somewhat atypical for angina, given her risk factors and the significant EKG changes, I do not think a stress test would be helpful at this point, and I recommended proceeding with coronary angiography for definitive evaluation. We discussed an alternative cause of her EKG changes would be underlying hypertension with hypertensive heart disease. This would be supported by her echocardiogram with mild concentric left ventricular hypertrophy and grade 2 diastolic dysfunction noted. After discussing the benefits and risks of cardiac catheterization, the patient favors ongoing optimization of risk factors/medical therapy, and follow-up rather than cardiac catheterization today. I counseled her that I thought this was a reasonable approach, but that she has recurrent symptoms of chest pressure with exertion that she needs to return to the hospital." -discharge medications sent to [facility] [address] [facility] [place] [address] acetaminophen 325 mg every 6 hours as needed for pain atorvastatin 10 mg daily for dyslipidemia and risk reduction of coronary artery disease aspirin 81 mg daily for cardiac protection and risk reduction of coronary artery disease metoprolol tartrate 12.5 mg twice a day for cardiac protection and blood pressure control renewed lisinopril 40 mg daily for blood pressure patient can continue home dose triamterene/HCTZ (37.5 mg/25 mg) patient was given serum potassium supplements on 04/21/2020 when serum potassium was 3.2. repeat basic metabolic panel ordered LDL cholesterol is 111. HbA1c is 6.5 upcoming appointments 04/27/2020 11:20 AM Provider Domenic Baker DO Department Family [facility] 05/08/2020 10:00 AM Provider Tre Fraga DO Department Cardiology, [facility] (2) Hypertension: -management as above (3) Chronic kidney disease, stage III (moderate): Hypokalemia -stable renal function -patient was given serum potassium supplements on 04/21/2020 when serum potassium was 3.2. repeat basic metabolic panel ordered (4) DM II (diabetes mellitus, type II), controlled: Type 2 diabetes mellitus with intermediate card tender current use of insulin -HbA1c 6.5, continue home dose insulin on discharge with outpatient follow up to primary care doctor (5) Obstructive sleep apnea: -CPAP HS Admission and Anticipated Discharge Date Admission Date: April 20, 2020 Subjective tenderness of left upper rib area near the left breast that has reproducible tenderness. breathing on room air. no shortness of breath no dizziness. no headache. no chest pain. 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 hospital course with patient and plans for outpatient follow up Review of Systems Review of Systems: All systems reviewed & are unremarkable except as noted in Subjective Physical Exam Constitutional: comfortable Eyes: PERRL, conjunctivae normal, anicteric sclerae EOM intact bilaterally ENMT: external ear and nose normal, oropharynx normal Neck: trachea midline, no thyromegaly normal visual inspection Respiratory: normal respiratory effort, lungs clear to auscultation Cardiovascular: Rate/Rhythm: regular rhythm Gastrointestinal (Abdomen): normal bowel sounds, soft, nontender, no hepatosp lenomegaly Musculoskeletal: Head/Neck/Chest: normocephalic, head atraumatic and + localized rib tenderness (tenderness of left upper rib area near the left breast) Neurologic: PERRL, EOMI, accommodation nl, no face palsy, no dysarthria CN's II-XI intact bilaterally Psychiatric: A+Ox3, euthymic affect Results & Data Results & Data ([facility]) Vital Signs (Past 12 Hours) Vital Signs Temp Pulse Pulse Pulse Resp BP Pulse Ox 04/21/20 07:15 36.5 C 51 L 20 131/69 96 04/21/20 07:00 52 L 04/21/20 02:41 36.9 C 60 18 130/65 94 04/21/20 01:07 58 L 18 93 04/20/20 23:40 56 L 04/20/20 23:12 36.6 C 66 19 131/70 96 04/20/20 22:31 56 L 18 95
[2020-04-21 11:29] VITALS: TEMP 98.2
[2020-04-21 12:23] LABS: BUN Creatinine Ratio 18.4 (10-20); Calcium 8.4 mg/dl (8.5-10.1); Creatinine Clr Calc Pharmacy 58.6 ml/min; Est GFR (African American) 58.7; Est GFR (Non-African American) 50.6; Potassium 4.3 mmol/L (3.5-5.1)
--- NOTE | 2020-04-21 12:32 | Discharge Summary ---
Date of Service April 21, 2020 Admission HPI Per Admitting Provider This is a 69-year-old female with PMH of hypertension, type 2 diabetes on insulin, CKD III, SAM on CPAP, history of breast cancer and endometrial cancer s/p XRT and other medical problems listed below who presents with chest pain x 2 weeks. Patient established care with Dr. Domenic Valencia this morning and mentioned pain under her left breast over the past 2 weeks. Pain is described as an ache with some radiation laterally towards her ribs. Pain is present at all times but is exacerbated multiple times a day, sometimes occurring at rest and sometimes with exertion. Denies any associated lightheadedness, shortness of breath, nausea or vomiting. Denies any previous history of chest pain. Had a normal echocardiogram in 2005. Denies any other symptoms. No fever, chills, visual changes, headache, wheezing, palpitations, abdominal pain, dysuria, diarrhea or constipation. EKG performed in clinic with evidence of T wave inversion. BP elevated at 182/102 and was given clonidine as well as aspirin and nitroglycerin. Chest pain was resolved with nitroglycerin. Patient sent to ED for further evaluation. 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 Hypokalemia Discharge Exam Constitutional comfortable Eyes PERRL, conjunctivae normal, anicteric sclerae EOM intact bilaterally ENMT external ear and nose normal, oropharynx normal Neck trachea midline, no thyromegaly normal visual inspection Respiratory normal respiratory effort, lungs clear to auscultation Cardiovascular Rate/Rhythm: regular rhythm Gastrointestinal (Abdomen) normal bowel sounds, soft, nontender, no hepatosplenomegaly Musculoskeletal Head/Neck/Chest: normocephalic, head atraumatic and + localized rib tenderness (tenderness of left upper rib area near the left breast) Neurologic PERRL, EOMI, accommodation nl, no face palsy, no dysarthria CN's II-XI intact bilaterally Psychiatric A+Ox3, euthymic affect Discharge Data Allergies Allergy/AdvReac Type Severity Reaction Status Date / Time Penicillins Allergy Intermediate BODY RASH Verified 04/20/20 11:57 dapagliflozin Allergy Unknown unable to Verified 04/20/20 11:57 function levofloxacin [From Levaquin] Allergy Unknown Unknown Verified 04/20/20 13:04 wheat Allergy Unknown body Verified 04/20/20 11:57 rejects house dust AdvReac Mild Sneezing Verified 04/20/20 13:04 pollen extracts AdvReac Unknown Unknown Verified 04/20/20 13:04 Consultations 04/20/20 12:44 ED Decision to Admit Stat 04/20/20 12:45 Consult Cardiology Stat 04/20/20 14:00 Consult Cardiology Routine Hospital Course (1) Hypertensive urgency: Abnormal EKG Chest pain Dyslipidemia This is a 69-year-old female with PMH of hypertension, type 2 diabetes on insulin, CKD III, SAM on CPAP, history of breast cancer and endometrial cancer s/p XRT and other medical problems listed below who was sent to the emergency room by primary care doctor because of high blood pressure T wave inversions in the later leads and concerns of left sided chest pain -patient's blood pressure improved with nitropaste in the ED and IV Lopressor, oral Lopressor, cardiology consulted and empirically started on IV heparin. -during her work up troponins negative x 4 and normal echocardiogram -on hospitalist exam this AM, there is is point tenderness and reproducibility of her pain with palpation under her left breast at the margin of the rib there and this left sided chest pain likely musculoskeletal in nature from her job which requires repetitive motion of lifting her arms above her head. -as per cardiology on 04/21/2020 " Although her symptoms are somewhat atypical for angina, she certainly has risk factors of coronary heart disease given her age, history of diabetes, hypertension, dyslipidemia, and family history of coronary heart disease. She developed new prominent T wave inversions in the lateral leads on repeat EKG performed yesterday at 3:34 PM, much different compared to her previous historical EKG tracings dating back to 2019. Although her troponin levels were not in the undetectable range, they were still within normal limits. I discussed with her that although her symptoms were somewhat atypical for angina, given her risk factors and the significant EKG changes, I do not think a stress test would be helpful at this point, and I recommended proceeding with coronary angiography for definitive evaluation. We discussed an alternative cause of her EKG changes would be underlying hypertension with hypertensive heart disease. This would be supported by her echocardiogram with mild concentric left ventricular hypertrophy and grade 2 diastolic dysfunction noted. After discussing the benefits and risks of cardiac catheterization, the patient favors ongoing optimization of risk factors/medical therapy, and follow-up rather than cardiac catheterization today. I counseled her that I thought this was a reasonable approach, but that she has recurrent symptoms of chest pressure with exertion that she needs to return to the hospital." -discharge medications sent to [facility] [address] [place] [facility] [place] [address] acetaminophen 325 mg every 6 hours as needed for pain atorvastatin 10 mg daily for dyslipidemia and risk reduction of coronary artery disease aspirin 81 mg daily for cardiac protection and risk reduction of coronary artery disease metoprolol tartrate 12.5 mg twice a day for cardiac protection and blood pressure control renewed lisinopril 40 mg daily for blood pressure patient can continue home dose triamterene/HCTZ (37.5 mg/25 mg) patient was given serum potassium supplements on 04/21/2020 when serum potassium was 3.2. repeat basic metabolic panel performed and serum potassium 4.3 LDL cholesterol is 111. HbA1c is 6.5 upcoming appointments 04/27/2020 11:20 AM Provider Domenic Baker DO Department Family Practice [facility] 05/08/2020 10:00 AM Provider Tre Fraga DO Department Cardiology, [facility] (2) Hypertension: -management as above (3) Chronic kidney disease, stage III (moderate): Hypokalemia -stable renal function -patient was given serum potassium supplements on 04/21/2020 when serum potassium was 3.2. repeat basic metabolic panel ordered (4) DM II (diabetes mellitus, type II), controlled: Type 2 diabetes mellitus with snf current use of insulin -HbA1c 6.5, continue home dose insulin on discharge with outpatient follow up to primary care doctor (5) Obstructive sleep apnea: -CPAP HS Total Time Total Time Spent Total Time Spent (In Minutes): 40 minutes Total Time Includes: Examination of the Patient, Discharge Planning, Medication Reconciliation and Communication With Other Providers Discharge Plan Discharge Items Patient Disposition: Home - Self-Care Reason For Visit: CHEST PAIN Discharge Diagnosis: Chest pain Hypertensive urgency, Hypertension Abnormal EKG Dyslipidemia 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 Hypokalemia Condition on Discharge: Good Activity: Per Instructions section Lifting Comment: avoid excessive lifting of left arm Non-emergency contact: Primary Care Provider and Interior Design Instructor Call non-emergency contact if: you have any medication questions Follow-up/Referrals: Domenic Baker DO [Primary Care Provider] - Diet: Carb Consistent or DM2 and Heart Healthy Addtl Attending Provider Instructions: discharge medications sent to [facility] [address] [place] [facility] [place] [address] acetaminophen 325 mg every 6 hours as needed for pain atorvastatin 10 mg daily for dyslipidemia and risk reduction of coronary artery disease aspirin 81 mg daily for cardiac protection and risk reduction of coronary artery disease metoprolol tartrate 12.5 mg twice a day for cardiac protection and blood pressure control renewed lisinopril 40 mg daily for blood pressure patient can continue home dose triamterene/HCTZ (37.5 mg/25 mg) patient was given serum potassium supplements on 04/21/2020 when serum potassium was 3.2. repeat basic metabolic panel performed and serum potassium 4.3 LDL cholesterol is 111. HbA1c is 6.5 upcoming appointments 04/27/2020 11:20 AM Provider Domenic Baker DO Department Family Practice [facility] 05/08/2020 10:00 AM Provider Tre Fraga DO Department Cardiology, [facility] Pending Studies at Discharge: No Stand-Alone Forms: My [facility], Smoking Cessation Medications and DC Order Prescriptions: New atorvastatin 10 mg Tablet 10 mg PO QAM 30 Days Qty: 30 RF: 0 lisinopril 40 mg tablet 40 mg PO DAILY 30 Days Qty: 30 RF: 0 metoprolol tartrate 25 mg Tablet 12.5 mg PO BID 30 Days Qty: 30 RF: 0 acetaminophen 325 mg Tablet 325 mg PO Q6H PRN (Reason: fever or pain) 5 Days Qty: 20 RF: 0 aspirin 81 mg Tablet,Delayed Release (Dr/Ec) 81 mg PO QAM 30 Days Qty: 30 RF: 0 Continued triamterene-hydrochlorothiazid 37.5-25 mg capsule 1 cap PO DAILY Qty: 90 RF: 3 Basaglar KwikPen U-100 Insulin 100 unit/mL (3 mL) insulin pen See Rx Instructions SQ DAILY Qty: 30 RF: 5 insulin glargine 100 unit/mL (3 mL) insulin pen 23 units subcut BID Qty: 3 RF: 0 lisinopril 40 mg tablet 40 mg PO DAILY Qty: 90 RF: 0 meclizine 25 mg tablet 25 mg PO UD PRN (Reason: Dizziness) RF: 0 nystatin-triamcinolone 100,000-0.1 unit/g-% cream 1 appln topical UD PRN (Reason: Rash) RF: 0 cyanocobalamin (vitamin B-12) 1,000 mcg Tablet 1,000 mcg PO DAILY RF: 0 aspirin 81 mg Tablet,Delayed Release (Dr/Ec) 81 mg PO DAILY RF: 0 ascorbic acid (vitamin C) [Vitamin C] 500 mg Tablet 500 mg PO DAILY RF: 0 cholecalciferol (vitamin D3) [Vitamin D3] 125 mcg (5,000 unit) Tablet 125 mcg PO DAILY RF: 0 Discharge Orders: Discharge Order (Routine); Ordered 04/21/20 Ordered By: Darrick Huang/Other Patient Handouts: Managing Type 2 Diabetes, Diabetes: Meal Planning Admission Data Admit Date/Time: 04/20/20 12:56 Attending Provider: Darrick Villagran Admit Provider: Zohreh Carrington Primary Care Provider: Domenic Baker Other Providers: Tre Fraga ; Zohreh Carrington ; Deshawn Pacheco ; Brody Perez ; Uli Bailey ; Jarrod Whitman ; Sae Bloom ; Gavi Guzman ; Fay Payan ; Marcio Alvarado
[2020-04-21 13:05] VITALS: BP 164/72; PULSE 60
--- NOTE | 2020-04-21 13:28 | Electrocardiogram Report ---
Test Reason : Blood Pressure : / mmHG Vent. Rate : 054 BPM Atrial Rate : 054 BPM P-R Int : 120 ms QRS Dur : 082 ms QT Int : 502 ms P-R-T Axes : 027 028 097 degrees QTc Int : 476 ms Sinus bradycardia T wave abnormality, consider lateral ischemia Prolonged QT Abnormal ECG When compared with ECG of 20-APR-2020 15:34, T wave inversion less evident in Anterolateral leads Confirmed by Cali Reina ([id number]) on 04/21/2020 1:28:50 PM Referred By: REFERRED SELF Confirmed By:Glenn Reina
== END 2020-04-21 13:25 | disposition home or self-care (01) | DRG 305 ==
LOC: ED 11:34 → SUATTDRO 12:56 → 2S 12:56

== ENCOUNTER 2025-01-24 15:42 | Observation (INO) ==
--- NOTE | 2025-01-24 16:02 | Emergency Department Note ---
Impression & Plan Acute dehydration, Thrombocytopenia, Acute UTI, Generalized weakness ED Provider Note NAME: DELLA ADAMS AGE: 74 SEX: F : 1950 ARRIVES VIA: Ambulance INFORMANT: Patient, ED PROVIDER(S): Patrick Lockett MD CHIEF COMPLAINT: Weakness, fatigue, urinary symptoms MEDICAL DECISION MAKING: Patient presents due to concern for weakness and fatigue as well as likely urinary symptoms. IV was established and blood work was obtained. Patient with leukopenia normal hemoglobin and thrombocytopenia. Kidney function with a creatinine 1.38. Patient does have mild transaminitis. Bilirubin 1.2 with an AST of 46. Distal tickborne labs were ordered as a precaution. Urine does appear to be infected. Patient was ordered IV Rocephin. Patient does have an elevated blood sugar but not in DKA at this time. The patient did receive 1 L of IV fluids. I did speak with the on-call hospitalist med of the patient's mild hyponatremia UTI and weakness as well as leukopenia and thrombocytopenia. I did speak with TACO Pereira and the patient was admitted by Dr. Niño. Of note the patient was able to get up and use a walker to walk to the bathroom. Discussion w/ other healthcare providers: TACO Pereira and Dr. Niño Prior /Outside records reviewed: I reviewed part of a primary care visit from earlier today. Patient was seen for an acute visit by Dr. Angel. Patient reportedly generalized weakness poor appetite hot cold chills achy urinary incontinence but no burning. Patient did have COVID flu urinalysis urine culture and [id number] glucose that were ordered in house. Differential diagnosis: Infection, dehydration, metabolic abnormality, hypo/hyperglycemia, electrolyte imbalance, anemia, UTI, pneumonia, thyroid dysfunction among others were considered. Diagnostics, as interpreted by me: ECG: Normal sinus rhythm, rate of 98, normal intervals, normal axis no ST elevations T wave inversions in the high lateral leads. 2 inversions appear old from comparison April 21, 2020 Cardiac monitoring: An order was placed for continuous cardiac monitoring. The monitor shows a rate of 95 with sinus rhythm. Patient was placed on pulse oximetry Medical decision rules: None Imaging studies: I informally interpreted the patient's chest x-ray does not show obvious pneumothorax with formal report to follow. HPI: Patient presents due to concern for increasing weakness. The patient reports that she started to feel ill on Friday and feels as though she is gotten progressively worse. Patient was seen in clinic today was noted to have elevated blood sugar greater than 300. The patient does use insulin. She believes that she has been eating and drinking appropriately. Patient reports that she did have some generalized muscle achiness and some weakness but the patient has been "laying around" most of the weekend. Patient denies any known sick contacts or recent travel. Patient denies any chest pains or shortness of breath. Patient denies any cough. She has felt hot and cold but no documented temperature at home. PAST MEDICAL HISTORY: See Below PAST SURGICAL HISTORY: See Below SOCIAL HISTORY: See Below HOME MEDICATIONS: See Below ALLERGIES: See Below VITALS: See Below PHYSICAL EXAMINATION: GENERAL: NAD, non-toxic. Wearing glasses. EYE EXAM: Normal conjunctiva. PERRL, no anisocoria and EOM's grossly intact w/o pain. OROPHARYNX: Moist mucus membranes, grossly normal dentition. NECK: Trachea midline, no stridor. LUNGS: Clear to auscultation. Normal chest wall mechanics. HEART: NSR, no MRG. ABDOMEN: Abdomen soft, non-tender, no masses, no rebound or guarding. BACK: No CVA TTP. SKIN: No rashes and no bruising. UPPER EXTREMITIES: Upper extremities are grossly normal. LOWER EXTREMITIES: Grossly normal, no edema. NEURO EXAM: Awake and alert, follows commands, no obvious facial asymmetry, normal speech, moves all 4 extremities but weakly moves bilateral lower extremities but symmetric no sensory changes in arms or legs. Past Med/Surg History Problem List (Updated 01/25/25 @ 15:52 by Patrick Lockett MD) Generalized weakness (Acute) Acute UTI (Acute) Thrombocytopenia (Acute) Acute dehydration (Acute) Abnormal LFTs Myalgia UTI (urinary tract infection) Elevated ferritin level Hypokalemia Hyponatremia Tick bite of back Pancytopenia Thrombocytopenia LUNA (acute kidney injury) Electrolyte abnormality Weakness Vitamin D deficiency Diabetic peripheral neuropathy Controlled type 2 diabetes mellitus with neurologic complication, with long-term current use of insulin Dyslipidemia H/O partial mastectomy H/O hernia repair History of breast cancer (Chronic) dx in 2010, s/p XRT Obstructive sleep apnea (Chronic) on CPAP Obesity, morbid, BMI 40.0-49.9 (Chronic) Chronic kidney disease, stage III (moderate) (Chronic) Osteoarthritis of right shoulder Medical History Hypertension DM II (diabetes mellitus, type II), controlled Surgical History History of hysterectomy with bilateral oophorectomy Family History Other Coronary heart disease Hypertension Kidney disease Denies family history of Ovarian cancer Prostate cancer Myocardial infarction Breast cancer Colorectal cancer Social History Smoking Status: Never smoker Second Hand Exposure: No; Do You Dip or Chew Tobacco: No; Hx Alcohol Use: No Hx Substance Use: No Preferred Language: Nicaraguan Communication Ability: Effective Visual Impairment: Limited Hearing Ability: Normal [employer] E Business Developer Required: No Beliefs That Will Affect Care: None marital status: / marital status details: 2003 passed. Current Living Situation: Alone current occupational status: retired How many Children do You have: 2 Other Information That Helps Us Care for You: No Feels Safe at Home: Yes Safety Concerns: Feels Safe At This Time Childhood Exposure to Second-Hand Smoke: No Diet: diabetic and regular caffeine: Yes (coffee) during the past year weight has: remained stable Dental Care, Regularly: No Physical Activity Frequency: 3-4 Times per Week Seatbelt Use: always Sunscreen Use: No Do you think of yourself as: straight/heterosexual Sexual Activity: has been sexually active, but not for at least 12 months Gender Identity: Female Assistive Devices: Walker Allergies Allergies Allergy/AdvReac Type Severity Reaction Status Date / Time Penicillins Allergy Intermediate BODY RASH Verified 01/24/25 18:05 dapagliflozin Allergy Unknown unable to Verified 01/24/25 18:05 function levofloxacin [From Levaquin] Allergy Unknown Unknown Verified 01/24/25 18:05 house dust AdvReac Mild Sneezing Verified 01/24/25 18:05 pollen extracts AdvReac Unknown Unknown Verified 01/24/25 18:05 Home Meds Home Medications Medication Instructions Recorded Confirmed blood sugar diagnostic (OneTouch 05/21/23 01/24/25 Ultra Test strips) Lisinopril 1 tab PO DAILY 01/24/25 Previous Rx's Medication Instructions Recorded blood sugar diagnostic (OneTouch #100 ea 03/15/24 Verio test strips) pen needle, diabetic 32 gauge x #200 ea 04/23/24 5/32" (BD Ultra-Fine Twyla Pen Needle) Fiasp FlexTouch U-100 Insulin 100 See Rx Instructions .Route 04/26/24 unit/mL (3 mL) subcutaneous pen .COMPLEX #30 mL (insulin aspart (niacinamide)) blood-glucose sensor (Dexcom G7 #1 ea 06/27/24 Sensor device) insulin glargine 100 unit/mL (3 10 unit (0.1 mL) subcut DAILY #1 08/04/24 mL) subcutaneous pen (Basaglar box KwikPen U-100 Insulin) Results & Data (ED) Vital Signs Vital Signs - 24 hr 01/24/25 16:16 01/24/25 16:33 Pulse Rate 90 Oxygen Delivery Method Room Air Home Medications Current Medication List: was personally reviewed by me Laboratory Data Attestation: I reviewed the patient's lab results. 01/25/25 07:08 01/25/25 07:08 Lab Results 01/24/25 01/24/25 01/24/25 Range/Units 15:54 15:55 16:32 WBC 3.20 L (4.8-10.8) K/ul RBC 4.16 L (4.20-5.40) M/uL Hgb 12.5 (12.0-16.0) g/dl Hct 35.3 L (37.0-47.0) % MCV 84.9 (80.0-100.0) fL MCH 30.0 (25.0-34.0) pg MCHC 35.4 (32.0-36.0) g/dL RDW Std Deviation 43.6 (36.4-46.3) fL RDW Coeff of Evonne 14.1 (11.5-14.5) % Plt Count 79 L (130-400) K/uL MPV 10.7 (9.4-12.4) fL Immature Gran % (Auto) 0.3 % Neut % (Auto) 87.2 % Lymph % (Auto) 5.9 % Moody % (Auto) 6.3 % Eos % (Auto) 0.0 % Baso % (Auto) 0.3 % Neut # (Auto) 2.79 (1.40-6.50) K/uL Lymph # (Auto) 0.19 L (1.20-3.40) K/uL Moody # (Auto) 0.20 (0.11-0.59) K/uL Eos # (Auto) 0.00 (0.00-0.50) K/uL Baso # (Auto) 0.01 (0.00-0.20) K/uL Immature Gran # (Auto) 0.01 (0.01-0.20) K/uL Platelet Estimate Decreased L (Normal) Sodium 128 L (136-145) mmol/L Potassium 3.4 L (3.5-5.1) mmol/L Chloride 91 L (98-107) mmol/L Carbon Dioxide 30 (21-32) mmol/L Anion Gap 7 (3-11) BUN 27 H (6-23) mg/dl Creatinine 1.38 H (0.6-1.2) mg/dl Est Cr Clr Drug Dosing 37.2 ml/min eGFR 40.17 BUN/Creatinine Ratio 19.6 (10-20) Glucose 294 H (70-99(Fasting)) mg/dl Calcium 8.8 (8.6-10.3) mg/dl Magnesium 1.6 L (1.7-2.4) mg/dl Total Bilirubin 1.2 H (0.2-1.0) mg/dl AST 46 H (13-39) U/L ALT 31 (7-52) U/L Alkaline Phosphatase 57 (34-104) U/L Total Protein 6.7 (6.0-8.3) gm/dl Albumin 3.6 (3.4-5.0) gm/dl Globulin 3.1 (2.5-4.0) gm/dl Albumin/Globulin Ratio 1.2 (0.9-2) TSH 3.682 (0.300-4.500) uIu/ml Urine Color Urine Appearance (Clear) Urine pH (4.5-7.5) Ur Specific Steele (1.000-1.030) Urine Protein (Negative) Urine Glucose (UA) (Negative) Urine Ketones (Negative) Urine Blood (Negative) Urine Nitrite (Negative) Urine Bilirubin (Negative) Urine Urobilinogen (Negative) Ur Leukocyte Esterase (Negative) Urine WBC (Auto) (0-5) /hpf Urine RBC (Auto) (0-2) /hpf U Hyaline Cast (Auto) (0-2) /lpf U Epithel Cells (Auto) (0-2) /hpf Urine Bacteria (Auto) (None Seen) Anaplasma Smear See Comment Babesia Smear See Comment Lyme Disease Screen Negative (Negative) SARS-CoV-2 (PCR) NEGATIVE (Negative) Influenza Type A (PCR) Negative (Neg) Influenza Type B (PCR) Negative (Neg) RSV (RT-PCR) Negative (Neg) 01/24/25 Range/Units 16:50 WBC (4.8-10.8) K/ul RBC (4.20-5.40) M/uL Hgb (12.0-16.0) g/dl Hct (37.0-47.0) % MCV (80.0-100.0) fL MCH (25.0-34.0) pg MCHC (32.0-36.0) g/dL RDW Std Deviation (36.4-46.3) fL RDW Coeff of Evonne (11.5-14.5) % Plt Count (130-400) K/uL MPV (9.4-12.4) fL Immature Gran % (Auto) % Neut % (Auto) % Lymph % (Auto) % Moody % (Auto) % Eos % (Auto) % Baso % (Auto) % Neut # (Auto) (1.40-6.50) K/uL Lymph # (Auto) (1.20-3.40) K/uL Moody # (Auto) (0.11-0.59) K/uL Eos # (Auto) (0.00-0.50) K/uL Baso # (Auto) (0.00-0.20) K/uL Immature Gran # (Auto) (0.01-0.20) K/uL Platelet Estimate (Normal) Sodium (136-145) mmol/L Potassium (3.5-5.1) mmol/L Chloride (98-107) mmol/L Carbon Dioxide (21-32) mmol/L Anion Gap (3-11) BUN (6-23) mg/dl Creatinine (0.6-1.2) mg/dl Est Cr Clr Drug Dosing ml/min eGFR BUN/Creatinine Ratio (10-20) Glucose (70-99(Fasting)) mg/dl Calcium (8.6-10.3) mg/dl Magnesium (1.7-2.4) mg/dl Total Bilirubin (0.2-1.0) mg/dl AST (13-39) U/L ALT (7-52) U/L Alkaline Phosphatase (34-104) U/L Total Protein (6.0-8.3) gm/dl Albumin (3.4-5.0) gm/dl Globulin (2.5-4.0) gm/dl Albumin/Globulin Ratio (0.9-2) TSH (0.300-4.500) uIu/ml Urine Color Yellow Urine Appearance Cloudy A (Clear) Urine pH 7.0 (4.5-7.5) Ur Specific Steele 1.008 (1.000-1.030) Urine Protein 1+ H (Negative) Urine Glucose (UA) Trace H (Negative) Urine Ketones Negative (Negative) Urine Blood 3+ H (Negative) Urine Nitrite Negative (Negative) Urine Bilirubin Negative (Negative) Urine Urobilinogen Negative (Negative) Ur Leukocyte Esterase Trace H (Negative) Urine WBC (Auto) 0-5 (0-5) /hpf Urine RBC (Auto) >20 H (0-2) /hpf U Hyaline Cast (Auto) 3-5 H (0-2) /lpf U Epithel Cells (Auto) 3-5 H (0-2) /hpf Urine Bacteria (Auto) 4+ H (None Seen) Anaplasma Smear Babesia Smear Lyme Disease Screen (Negative) SARS-CoV-2 (PCR) (Negative) Influenza Type A (PCR) (Neg) Influenza Type B (PCR) (Neg) RSV (RT-PCR) (Neg) Administered Medications Amlodipine Besylate (Amlodipine Besylate 5 Mg Tab) 5 mg PO QAM LÓPEZ Stop: 02/24/25 08:59 Last Admin: 01/25/25 08:38 Dose: 5 mg Documented By: AV Potassium Chloride/Sodium Chloride (Normal Saline W/20 Meq Kcl) 20 meq in 1,000 mls @ 100 mls/hr IV .Q10H LÓPEZ Stop: 01/25/25 20:37 Last Admin: 01/25/25 10:13 Dose: 75 mls/hr Documented By: AV Insulin Aspart (Insulin Aspart Per Unit Charge) 0 units SC ACHS LÓPEZ Stop: 02/23/25 21:12 Last Admin: 01/25/25 12:08 Dose: 5 units Documented By: SALLY Co-signed By: JOSH Admin: 01/25/25 08:38 Dose: 6 units Documented By: SALLY Co-signed By: DOYLE Admin: 01/24/25 21:42 Dose: 5 units Documented By: BRIANNA Co-signed By: JUAN MIGUEL Insulin Glargine (Lantus Per Unit Charge) 10 units SQ BID LÓPEZ Stop: 02/23/25 21:12 Last Admin: 01/25/25 08:38 Dose: 10 units Documented By: SALLY Co-signed By: DOYLE Admin: 01/24/25 21:42 Dose: 10 units Documented By: BRIANNA Co-signed By: JUAN MIGUEL Discontinued Medications Amlodipine Besylate (Amlodipine Besylate 5 Mg Tab) 5 mg PO NOW ONE Stop: 01/24/25 18:14 Last Admin: 01/24/25 18:27 Dose: 5 mg Documented By: CEF Sodium Chloride (Nss) 1,000 mls @ 999 mls/hr IV .Q1H1M LÓPZE Stop: 01/24/25 17:30 Last Infusion: 01/24/25 17:50 Dose: Infused Documented By: Admin: 01/24/25 16:32 Dose: 999 mls/hr Documented By: CEF Acetaminophen (Ofirmev) 1,000 mg in 100 mls @ 400 mls/hr IV NOW STA Stop: 01/24/25 16:36 Last Infusion: 01/24/25 17:50 Dose: Infused Documented By: Admin: 01/24/25 16:50 Dose: 400 mls/hr Documented By: CEF Ceftriaxone Sodium (Rocephin) 2,000 mg in 50 mls @ 100 mls/hr IV NOW STA Stop: 01/24/25 17:48 Last Infusion: 01/24/25 18:29 Dose: Infused Documented By: Admin: 01/24/25 17:56 Dose: 100 mls/hr Documented By: CEF Magnesium Sulfate/Dextrose (Magnesium Sulfate / D5w) 1 gm in 100 mls @ 100 mls/hr IV NOW STA Stop: 01/24/25 18:19 Last Infusion: 01/24/25 21:14 Dose: Infused Documented By: Admin: 01/24/25 18:25 Dose: 100 mls/hr Documented By: CEF Sodium Chloride (Nss) 1,000 mls @ 100 mls/hr IV .Q10H LÓPEZ Stop: 01/25/25 07:12 Last Infusion: 01/25/25 07:51 Dose: Infused Documented By: Admin: 01/24/25 21:45 Dose: 100 mls/hr Documented By: BRIANNA Doxycycline Hyclate 100 mg/ (Dextrose) 100 mls @ 50 mls/hr IV NOW STA Stop: 01/25/25 11:08 Last Infusion: 01/25/25 12:13 Dose: Infused Documented By: Admin: 01/25/25 10:12 Dose: 50 mls/hr Documented By: AV Potassium Chloride (Potassium Chloride Crtab 20 Meq Tabcr) 40 meq PO NOW STA Stop: 01/24/25 18:14 Last Admin: 01/24/25 18:28 Dose: 40 meq Documented By: CEF Potassium Chloride (Potassium Chloride Crtab 20 Meq Tabcr) 40 meq PO NOW STA Stop: 01/25/25 10:10 Last Admin: 01/25/25 10:12 Dose: 40 meq Documented By: AV Discharge Plan Visit Data Chief Complaint: Weakness Stated Complaint: WEAKNESS ED Provider: Patrick Lockett Discharge Problem: Acute dehydration, Thrombocytopenia, Acute UTI, Generalized weakness Patient Disposition: Admitted As Inpatient Condition: Good Discharge Instructions Interventions: ED Discharge Assessment Last Done: 01/24/25 21:00
[2025-01-24] MEDS: SODIUM CHLORIDE 0.9% 1,000 ML IV SCH ×2 (16:32→21:45)
[2025-01-24] MEDS: ACETAMINOPHEN 1,000 MG/100 ML VIAL IV STA (16:50)
[2025-01-24 17:00] LABS: Basophils # (auto) 0.01 K/uL (0.00-0.20); Basophils % (auto) 0.3 %; Hematocrit (blood only) 35.3 % (37.0-47.0); Hemoglobin 12.5 g/dl (12.0-16.0); Immature Granulocytes # (auto) 0.01 K/uL (0.01-0.20); Immature Granulocytes % (auto) 0.3 %; Lymphocytes # (auto) 0.19 K/uL (1.20-3.40); Lymphocytes % (auto) 5.9 %; Mean Corpuscular Hgb Conc 35.4 g/dL (32.0-36.0); Mean Corpuscular Volume 84.9 fL (80.0-100.0); Mean Platelet Volume 10.7 fL (9.4-12.4); Monocytes % (auto) 6.3 %; Neutrophils # (auto) 2.79 K/uL (1.40-6.50); Neutrophils % (auto) 87.2 %; Platelet Count 79 K/uL (130-400); Platelet Estimate Decreased (Normal); RDW Coefficient of Variation 14.1 % (11.5-14.5); RDW Standard Deviation 43.6 fL (36.4-46.3); Red Blood Count 4.16 M/uL (4.20-5.40)
[2025-01-24 17:10] LABS: Albumin Globulin Ratio 1.2 (0.9-2); BUN Creatinine Ratio 19.6 (10-20); Bilirubin,Total 1.2 mg/dl (0.2-1.0); Calcium 8.8 mg/dl (8.6-10.3); Creatinine Clr Calc Pharmacy 37.2 ml/min; Globulin 3.1 gm/dl (2.5-4.0); Magnesium 1.6 mg/dl (1.7-2.4); Potassium 3.4 mmol/L (3.5-5.1); Total Protein 6.7 gm/dl (6.0-8.3)
[2025-01-24 17:13] LABS: Appearance Urine Cloudy (Clear); Bacteria Urine Automated 4+ (None Seen); Bilirubin Urine Negative (Negative); Blood Urine 3+ (Negative); Color Urine Yellow; Glucose Urine UA Trace (Negative); Ketones Urine Negative (Negative); Leukocyte Esterase Urine Trace (Negative); Nitrite Urine Negative (Negative); Protein Urine 1+ (Negative); RBC Urine Automated >20 /hpf (0-2); Specific Gravity Urine 1.008 (1.000-1.030); Urobilinogen Urine Negative (Negative); WBC Urine Automated 0-5 /hpf (0-5)
[2025-01-24 17:26] LABS: Thyroid Stimulating Hormone 3.682 uIu/ml (0.300-4.500)
[2025-01-24 17:38] LABS: Influenza A virus by PCR Negative (Neg); Influenza B virus by PCR Negative (Neg); RSV by PCR Negative (Neg); SARS CoV2 RNA(COVID-19) Ceph NEGATIVE (Negative)
--- NOTE | 2025-01-24 17:41 | XRay Report ---
Clinical History: Weakness Technique: 2 frontal views of the chest were obtained Comparison is made to the prior examination dated 02/18/2019 Findings: There are no confluent pulmonary infiltrates. The heart size is within normal limits. No pleural effusion or pneumothorax is seen. There is no definite pulmonary nodule. There is thoracic scoliosis and degenerative disc disease. There is a right shoulder arthroplasty Impression: No active disease Electronically signed by Gagan Johnson 01-24-2025 5:24 PM
[2025-01-24] MEDS: cefTRIAXone SODIUM 2,000 MG/50 ML BAG IV STA (17:56)
[2025-01-24] MEDS: MAGNESIUM SULFATE / D5W 1 GM/100 ML BAG IV STA (18:25)
--- NOTE | 2025-01-24 18:25 | History & Physical Report ---
Date of Service January 24, 2025 Assessment & Plan (1) Weakness: Plan: POSSIBLE UTI Admit to [facility] Patient presenting for evaluation of fever, body aches, generalized weakness. In the ED, patient has low-grade temp of 37.9. Labs show WBC 3.2K, platelets 79K, K+ 3.4, creatinine 1.3, glucose 294, Mg +1.6, T. bili 1.2, AST 46, UA suggestive of possible UTI, Lyme screen negative and Anaplasma/Babesia smear is negative. Patient was given IV Tylenol, IV ceftriaxone, magnesium replacement, IVF. Given leukopenia, thrombocytopenia, mildly elevated T. bili and AST, concern for possible tickborne illness however note negative Lyme screen and Anaplasma/CBC with smear. Confirmatory testing pending. Patient somewhat lethargic during exam and falling asleep quickly, will check ammonia UA suggestive of possible UTI S/p ceftriaxone in the ED, will continue with Follow urine culture (2) Hypertension: Plan: BP uncontrolled Patient reports she is on lisinopril however unsure of dosing, also unsure of prescriber, lisinopril not noted in medication fill history, pharmacy ([facility]) closed at this time. Given mild LUNA will avoid ADDIE/ARB, start amlodipine 5 mg (3) DM II (diabetes mellitus, type II), controlled: Plan: HgbA1c 6.3 09/2024 Patient reports elevated glucose over the past 1 month Glucose 294 on labs, no signs of DKA Home regimen: Basaglar 10u AM, NovoLog SSI Will start with Lantus 10 units twice daily, Novolog per protocol Update A1c with a.m. labs (4) Electrolyte abnormality: Plan: Na+ 128 - pseudohyponatremia in the setting of hyperglycemia, corrected to 133 K+ 3.4, Mg +1.6 Replace, follow electrolytes (5) LUNA (acute kidney injury): Plan: Baseline creatinine ~ 1.0 Creatinine 1.3 today IVF, follow renal functions (6) Thrombocytopenia: Plan: Platelets 79K Likely due to underlying infection Monitor CBC DVT PROPHYLAXIS SCDs due to thrombocytopenia Patient seen in collaboration with Dr. Niño. I spent a total of 75 minutes coordinating, documenting, and providing care for this patient excluding time spent in the performance of separately billed services. This included personally reviewing all current laboratories and imaging studies, medication reconciliation, outpatient chart review, and discussion with specialists. History of Present Illness Chief Complaint: weakness, body aches, fever Primary Care Provider: Domenic Baker DO 74-year-old female with PMH DM type II, HLD, HTN, and other problems listed below who presents to the ED for evaluation of weakness, body aches, fever. Note that patient has not been seen by her PCP since 11/2023, last seen by endocrinology 04/2024. Patient was evaluated at [facility] primary care today. Patient states she is unsure why she made an appointment at that office as she plans to continue to see Dr. Domenic Baker with [facility]. Patient was seen today for evaluation of generalized weakness, chills, body aches, and urinary incontinence. COVID and influenza testing was negative, patient unable to provide urine sample in the office. Patient was instructed to go to the ED if not improving or worsening. Patient reports she has felt feverish however did not take her temperature. She denies cough and sputum production. No chest pain or shortness of breath. Reports she has had a poor appetite but denies abdominal pain, nausea, vomiting, diarrhea. Reports urinary incontinence however denies dysuria. In the ED, patient has low-grade temp of 37.9. Labs show WBC 3.2K, platelets 79K, K+ 3.4, creatinine 1.3, glucose 294, Mg +1.6, T. bili 1.2, AST 46, UA suggestive of possible UTI, Lyme screen negative and Anaplasma/Babesia smear is negative. Patient was given IV Tylenol, IV ceftriaxone, magnesium replacement, IVF. Allergies Allergy/AdvReac Type Severity Reaction Status Date / Time Penicillins Allergy Intermediate BODY RASH Verified 01/24/25 18:05 dapagliflozin Allergy Unknown unable to Verified 01/24/25 18:05 function levofloxacin [From Levaquin] Allergy Unknown Unknown Verified 01/24/25 18:05 wheat Allergy Unknown body Verified 01/24/25 18:05 rejects house dust AdvReac Mild Sneezing Verified 01/24/25 18:05 pollen extracts AdvReac Unknown Unknown Verified 01/24/25 18:05 Home Medications Medication Instructions Recorded Confirmed Type blood sugar diagnostic (OneTouch 05/21/23 01/24/25 History Ultra Test strips) blood sugar diagnostic (OneTouch #100 ea 03/15/24 01/24/25 Rx Verio test strips) pen needle, diabetic 32 gauge x #200 ea 04/23/24 01/24/25 Rx 5/32" (BD Ultra-Fine Twyla Pen Needle) Fiasp FlexTouch U-100 Insulin 100 See Rx Instructions .Route 04/26/24 01/24/25 Rx unit/mL (3 mL) subcutaneous pen .COMPLEX #30 mL (insulin aspart (niacinamide)) blood-glucose sensor (Dexcom G7 #1 ea 06/27/24 01/24/25 Rx Sensor device) insulin glargine 100 unit/mL (3 10 unit (0.1 mL) subcut DAILY #1 08/04/24 01/24/25 Rx mL) subcutaneous pen (Basaglar box KwikPen U-100 Insulin) Lisinopril 1 tab PO DAILY 01/24/25 History Past Med/Surg History Problem List (Updated 01/24/25 @ 19:02 by TACO Nice) Thrombocytopenia LUNA (acute kidney injury) Electrolyte abnormality Weakness Vitamin D deficiency Diabetic peripheral neuropathy Controlled type 2 diabetes mellitus with neurologic complication, with long-term current use of insulin Dyslipidemia H/O partial mastectomy H/O hernia repair History of breast cancer (Chronic) dx in 2010, s/p XRT Obstructive sleep apnea (Chronic) on CPAP Obesity, morbid, BMI 40.0-49.9 (Chronic) Chronic kidney disease, stage III (moderate) (Chronic) Osteoarthritis of right shoulder Medical History (Updated 01/24/25 @ 19:02 by TACO Nice) Hypertension DM II (diabetes mellitus, type II), controlled Surgical History History of hysterectomy with bilateral oophorectomy Family History Other Coronary heart disease Hypertension Kidney disease Denies family history of Ovarian cancer Prostate cancer Myocardial infarction Breast cancer Colorectal cancer Social History (Updated 01/24/25 @ 11:30 by Paula Fong LPN) Smoking Status: Never smoker Second Hand Exposure: No; Do You Dip or Chew Tobacco: No; Hx Alcohol Use: No Hx Substance Use: No Preferred Language: Prydeinig Communication Ability: Effective Visual Impairment: Limited Hearing Ability: Normal Child Development Associate Teacher Required: No Beliefs That Will Affect Care: None marital status: / marital status details: 2004 passed. Current Living Situation: Alone current occupational status: retired How many Children do You have: 2 Feels Safe at Home: Yes Childhood Exposure to Second-Hand Smoke: No Diet: diabetic and regular caffeine: Yes (coffee) during the past year weight has: remained stable Dental Care, Regularly: No Physical Activity Frequency: 3-4 Times per Week Seatbelt Use: always Sunscreen Use: No Do you think of yourself as: straight/heterosexual Sexual Activity: has been sexually active, but not for at least 12 months Gender Identity: Female Assistive Devices: Cane, Glasses and Walker Physical Exam Physical Exam: please refer to Dr. Niño's addendum for physical exam Results & Data Results & Data Vital Signs (Past 12 Hours) Vital Signs Temp Pulse Resp BP Pulse Ox O2 Del Method 01/24/25 16:33 90 01/24/25 16:16 Room Air 01/24/25 15:44 37.9 C H 96 H 16 212/106 H 95 Room Air Laboratory Results Short CBC 01/24/25 Range/Units 15:54 WBC 3.20 L (4.8-10.8) K/ul Hgb 12.5 (12.0-16.0) g/dl Hct 35.3 L (37.0-47.0) % Plt Count 79 L (130-400) K/uL BMP 01/24/25 15:54 Sodium 128 L Potassium 3.4 L Chloride 91 L Carbon Dioxide 30 BUN 27 H Creatinine 1.38 H Glucose 294 H Calcium 8.8 Liver Function 01/24/25 Range/Units 15:54 Total Bilirubin 1.2 H (0.2-1.0) mg/dl AST 46 H (13-39) U/L ALT 31 (7-52) U/L Alkaline Phosphatase 57 (34-104) U/L Albumin 3.6 (3.4-5.0) gm/dl Urine 01/24/25 Range/Units 16:50 Urine Color Yellow Urine Appearance Cloudy A (Clear) Urine pH 7.0 (4.5-7.5) Ur Specific [place] 1.008 (1.000-1.030) Urine Protein 1+ H (Negative) Urine Glucose (UA) Trace H (Negative) Diagnostic Findings Chest X-Ray 01/24/25 16:22 Clinical History: Weakness Technique: 2 frontal views of the chest were obtained Comparison is made to the prior examination dated 02/18/2019 Findings: There are no confluent pulmonary infiltrates. The heart size is within normal limits. No pleural effusion or pneumothorax is seen. There is no definite pulmonary nodule. There is thoracic scoliosis and degenerative disc disease. There is a right shoulder arthroplasty Impression: No active disease Electronically signed by Gagan Johnson 01-24-2025 5:24 PM Code Status & VTE Plan VTE Prophylaxis Plan VTE Prophylaxis will be ordered: Yes Supervising Physician Co-Signing Physician Notes Presents with fever and muscle aches Reports urinary incontinence Denied dysuria, freq, cough, chest pain or SOB. Denied diarrhea, nausea, vomiting,abd pain On exam, General: Not in distress Eyes: PERRL, conjunctivae normal, not pale, anicteric sclerae, EOM intact bilaterally ENMT: External ear and nose normal, oropharynx normal Respiratory: Normal respiratory effort, no respiratory distress, lungs clear to auscultation, no crackles and no wheezes Cardiovascular: RRR S1 S2 Gastrointestinal (Abdomen): Abdomen is not distended, soft, non-tender to palpation, no guarding, normal bowel sounds Musculoskeletal: No pedal edema Genitourinary: No CVA tenderness Neurologic: Alert and oriented x 3, No focal weakness, sensation grossly intact Psychiatric: Euthymic affect Lab notable for WBC of 3.2, Plt 79, Na 128 (131 when corrected for hyperglycemia), Cr of 1.38, Mag 1.6, TBil 1.2, AST 46 UA noted trace esterase but 0-5WBC Lyme screen/Tick borne labs negative so far CXR did not show any acute abnormalities Fever, unclear etiology Possible UTI based on history though UA is unequivocal Continue IV ceftriaxone for now and follow up urine culture IVF for Acute kidney injury Replete and monitor hypokalemia and hypomagnesemia Significantly elevated BP Need to confirm her meds with her pharm in AM. Hold lisinopril Start amlodipine for hypertension Other plans as detailed by Yadi ESPAÑA I spent a total of 40 minutes coordinating, documenting and providing care for this patient excluding time spent in performance of separately billed services
[2025-01-24] MEDS: amLODIPine BESYLATE 5 MG TAB PO ONE (18:27)
[2025-01-24] MEDS: POTASSIUM CHLORIDE CRTAB 20 MEQ TABCR PO STA (18:28)
[2025-01-24] MEDS ORDERED: GLUCAGON FOR INJ 1 MG VIAL SQ PRN (21:13)
[2025-01-24] MEDS ORDERED: GLUCOSE 10 TAB/TUBE PO PRN (21:13)
[2025-01-24] MEDS ORDERED: GLUCOSE 40% GEL 15 GM TUBE PO PRN (21:13)
[2025-01-24] MEDS ORDERED: CARBOHYDRATES FOR HYPOGLYCEMIA PO PRN (21:13)
[2025-01-24] MEDS ORDERED: DEXTROSE 50% 50 ML SYRINGE IV PRN (21:13)
[2025-01-24] MEDS: LANTUS PER UNIT CHARGE SQ SCH (21:42)
[2025-01-24] MEDS: INSULIN ASPART PER UNIT CHARGE SC SCH (21:42)
[2025-01-25 07:55] LABS: Hematocrit (blood only) 31.3 % (37.0-47.0); Mean Corpuscular Hemoglobin 30.1 pg (25.0-34.0); Mean Corpuscular Hgb Conc 35.1 g/dL (32.0-36.0); Mean Corpuscular Volume 85.5 fL (80.0-100.0); Mean Platelet Volume 10.7 fL (9.4-12.4); Platelet Count 65 K/uL (130-400); RDW Coefficient of Variation 14.1 % (11.5-14.5); RDW Standard Deviation 43.8 fL (36.4-46.3); Red Blood Count 3.66 M/uL (4.20-5.40); White Blood Count 2.22 K/ul (4.8-10.8)
[2025-01-25 08:12] LABS: Estimated Average Glucose 171 mg/dl; Hemoglobin A1C 7.6 % (4.5-5.6)
[2025-01-25 08:22] LABS: Albumin Globulin Ratio 1.2 (0.9-2); BUN Creatinine Ratio 19.2 (10-20); Bilirubin,Total 0.7 mg/dl (0.2-1.0); Creatinine Clr Calc Pharmacy 49.4 ml/min; Globulin 2.6 gm/dl (2.5-4.0); Magnesium 1.7 mg/dl (1.7-2.4); Total Protein 5.6 gm/dl (6.0-8.3)
[2025-01-25] MEDS: amLODIPine BESYLATE 5 MG TAB PO SCH (08:38)
[2025-01-25] MEDS ORDERED: POTASSIUM CHLORIDE CRTAB 20 MEQ TABCR PO STA (09:07)
[2025-01-25 09:34] LABS: Ferritin 1228.2 ng/ml (8-388)
--- NOTE | 2025-01-25 09:58 | Hospitalist Progress Note ---
Date of Service January 25, 2025 Assessment & Plan (1) Pancytopenia: (2) UTI (urinary tract infection): (3) Tick bite of back: (4) Hyponatremia: (5) Hypokalemia: (6) Myalgia: (7) Dyslipidemia: (8) Controlled type 2 diabetes mellitus with neurologic complication, with long- term current use of insulin: (9) Obstructive sleep apnea: (10) Hypertension: (11) Elevated ferritin level: (12) LUNA (acute kidney injury): (13) Abnormal LFTs: Plan 74yo female with DM type II, Hyperlipidemia, SAM, and HTN who presented with several days of generalized weakness, body aches, fever, chills, and urinary incontinence. She had a confirmed tick-bite of the left upper back about 2 weeks ago. Seen at [facility] Primary care office yesterday (she is planning to establish care with Dr Meme Galeas at the [facility] on 02/03/25) for these symptoms. Ultimately came to the ER for evaluation. U/a suggestive of UTI, and labs showed hyponatremia, hypokalemia, leukopenia, thrombocytopenia, and elevated creatinine of 1.38. Admitted for Rx of UTI and tick-borne infection work-up. Admission was completed by the [facility] Hospitalist team, but again patient to establish care with Dr Galeas on 02/03/25. #pancytopenia - -in light of recent tick bite, mildly elevated LFTs, pancytopenia, and her clinical presentation I am concerned about tick-borne infection -- particularly anaplasmosis -viral infections (EBV, CMV, etc) could also cause a similar presentation -B12/folate pending -iron studies c/w acute phase reactant (elevated ferritin) and Fe def (low transferrin sat) -peripheral smear by pathology is pending -although anaplasmosis and other tick-borne infection screens were negative will place on empiric doxycycline 100mg BID -anaplasmosis DNA, ehrlichia DNA, and babesiosis DNA tests sent/pending -daily CBC w/ diff while here #tick-bite ~2 weeks prior - -see above -lyme screen also negative, but doxycycline will cover such #UTI - -2nd to Ecoli -cont rocephin IV while awaiting sensitivities #severe weakness & myalgias - -likely 2nd to combination of suspected tick-borne infection + UTI -she does have some mild proximal muscle weakness - thus check CPK now -await B12 level -will need PT/OT -antibiotics as above #hyponatremia - -improving s/p isotonic fluids -she still looks mildly volume contracted - will give 1 additional liter of NS today #hypokalemia - -2nd to poor PO intake for several days +/- chronic triamterene/HCTZ usage (not on admit med list, but she reports taking it and it is on her pharmacy records) -replace PO + IV -serial levels -mag level today normal #LUNA - -admit Cr 1.38 -improving s/p IV fluids -Cr today 1 -baseline is about 0.9-1 -LUNA 2nd to illness/poor po intake #HTN - -BPs elevated yesterday in the ER -[facility] Hospitalist team gave amlodipine 5mg with improvement in BPs today -will cont amlodipine 5mg daily -again pharmacy records show use of triamterene-HCTZ -- hold this -she is not on ADDIE inhibitor per pharmacy records #h/o hyperlipidemia - -not on statin therapy or other Rx at this time #T2DM - -a1c 7.6% -cont lantus BID -cont novolog - will adjust parameters as BSGs are elevated #thrombocytopenia - -suspect 2nd to tick-borne infection -mildly worse today; 70s at ER presentation, now in the 60s -daily CBC -Rx empirically for tick-borne infection #DVT proph - -as platelets are now in the 60s and trending down will avoid chemical DVT proph at this time -early ambulation if possible PT, OT consulted [facility] is medically complex, and given that her care was transferred to us today, considerable time was spent on chart review, interviewing the patient, exam, explaining diagnoses & plan of care, reviewing labs, ordering labs, developing Rx plan, etc total of ~80 minutes of patient care time spent this am Admission and Anticipated Discharge Date Admission Date: January 24, 2025 Subjective patient's main complaint is that of diffuse myalgias and weakness of both legs that started over the weekend no paresthesias of legs arms are weak too, but not like her legs most of the weakness is around the hips fortunately she has not had any falls despite the weakness she is very tired in general feverish her appetite remains normal despite the illness denies headache denies chest pain or dyspnea denies dyspnea on exertion denies cough or URI symptoms denies dysuria or foul-smelling urine had a tick bite on her left upper shoulder region about 2 weeks ago tick was alive & engorged boyfriend removed it at that time no rash around the tick bite site Review of Systems Review of Systems: gen - fevers, weakness cv - no cp, no orthopnea pulm - no cough, no dyspnea GI - no N/V - no LUTS musculo - myalgias & arthralgias neuro - no paresthesias Physical Exam Physical Exam: gen - looks weak, tired, and sickly; but awake/alert; lying comfortably in bed neck - no JVD mouth - MMM, no lesions skin - no rash; former tick-bite site left scapular region without rash; small scab present there heart - RRR, s1 s2, no murmur lungs - cta b/l abd - soft NT ND BS+; mild tenderness LUQ and spleen tip palpable ext - no edema, pulses 2+ b/l feet neuro - strength handgrip 5/5; minimal amount of proximal muscle weakness of shoulders with extension; mild weakness of hip flexion b/l; she reported tenderness in her hips & thighs with movements of her b/l hips; distal strength of feet/ankles wnl (5/5 b/l); no facial droop; DTRs 1+ b/l upper exts and patellar b/l psych - a/o x 3 vascular - varicose veins distal legs LLE>RLE Results & Data Results & Data Vital Signs (Past 12 Hours) Vital Signs Temp Pulse Resp BP Pulse Ox O2 Del Method 01/25/25 07:32 37.7 C H 81 16 138/75 95 Room Air 01/25/25 05:28 36.7 C 83 18 94 Room Air 01/24/25 22:08 Room Air 01/24/25 22:08 36.3 C L 73 16 174/82 H 100 Room Air Laboratory Results Laboratory Results - last 48 hr 01/24/25 01/24/25 01/24/25 15:54 15:55 16:32 WBC 3.20 L RBC 4.16 L Hgb 12.5 Hct 35.3 L MCV 84.9 MCH 30.0 MCHC 35.4 RDW Std Deviation 43.6 RDW Coeff of Evonne 14.1 Plt Count 79 L MPV 10.7 Immature Gran % (Auto) 0.3 Neut % (Auto) 87.2 Lymph % (Auto) 5.9 [place] % (Auto) 6.3 Eos % (Auto) 0.0 Baso % (Auto) 0.3 Neut # (Auto) 2.79 Lymph # (Auto) 0.19 L [place] # (Auto) 0.20 Eos # (Auto) 0.00 Baso # (Auto) 0.01 Immature Gran # (Auto) 0.01 Platelet Estimate Decreased L Sodium 128 L Potassium 3.4 L Chloride 91 L Carbon Dioxide 30 Anion Gap 7 BUN 27 H Creatinine 1.38 H Est Cr Clr Drug Dosing 37.2 eGFR 40.17 BUN/Creatinine Ratio 19.6 Glucose 294 H POC Glucose Estimat Average Glucose Hemoglobin A1c Calcium 8.8 Magnesium 1.6 L Iron TIBC Transferrin Transferrin % Sat Ferritin Total Bilirubin 1.2 H AST 46 H ALT 31 Alkaline Phosphatase 57 Ammonia Total Protein 6.7 Albumin 3.6 Globulin 3.1 Albumin/Globulin Ratio 1.2 TSH 3.682 Urine Color Urine Appearance Urine pH Ur Specific [place] Urine Protein Urine Glucose (UA) Urine Ketones Urine Blood Urine Nitrite Urine Bilirubin Urine Urobilinogen Ur Leukocyte Esterase Urine WBC (Auto) Urine RBC (Auto) U Hyaline Cast (Auto) U Epithel Cells (Auto) Urine Bacteria (Auto) Anaplasma Smear See Comment Babesia Smear See Comment Lyme Disease Screen Negative SARS-CoV-2 (PCR) NEGATIVE Influenza Type A (PCR) Negative Influenza Type B (PCR) Negative RSV (RT-PCR) Negative 01/24/25 01/24/25 01/24/25 16:50 20:57 21:19 WBC RBC Hgb Hct MCV MCH MCHC RDW Std Deviation RDW Coeff of Evonne Plt Count MPV Immature Gran % (Auto) Neut % (Auto) Lymph % (Auto) [place] % (Auto) Eos % (Auto) Baso % (Auto) Neut # (Auto) Lymph # (Auto) [place] # (Auto) Eos # (Auto) Baso # (Auto) Immature Gran # (Auto) Platelet Estimate Sodium Potassium Chloride Carbon Dioxide Anion Gap BUN Creatinine Est Cr Clr Drug Dosing eGFR BUN/Creatinine Ratio Glucose POC Glucose 242 H Estimat Average Glucose Hemoglobin A1c Calcium Magnesium Iron TIBC Transferrin Transferrin % Sat Ferritin Total Bilirubin AST ALT Alkaline Phosphatase Ammonia 22.0 Total Protein Albumin Globulin Albumin/Globulin Ratio TSH Urine Color Yellow Urine Appearance Cloudy A Urine pH 7.0 Ur Specific [place] 1.008 Urine Protein 1+ H Urine Glucose (UA) Trace H Urine Ketones Negative Urine Blood 3+ H Urine Nitrite Negative Urine Bilirubin Negative Urine Urobilinogen Negative Ur Leukocyte Esterase Trace H Urine WBC (Auto) 0-5 Urine RBC (Auto) >20 H U Hyaline Cast (Auto) 3-5 H U Epithel Cells (Auto) 3-5 H Urine Bacteria (Auto) 4+ H Anaplasma Smear Babesia Smear Lyme Disease Screen SARS-CoV-2 (PCR) Influenza Type A (PCR) Influenza Type B (PCR) RSV (RT-PCR) 01/25/25 01/25/25 07:08 07:31 WBC 2.22 L RBC 3.66 L Hgb 11.0 L Hct 31.3 L MCV 85.5 MCH 30.1 MCHC 35.1 RDW Std Deviation 43.8 RDW Coeff of Evonne 14.1 Plt Count 65 L MPV 10.7 Immature Gran % (Auto) Neut % (Auto) Lymph % (Auto) [place] % (Auto) Eos % (Auto) Baso % (Auto) Neut # (Auto) Lymph # (Auto) [place] # (Auto) Eos # (Auto) Baso # (Auto) Immature Gran # (Auto) Platelet Estimate Sodium 133 L Potassium 3.0 L Chloride 99 Carbon Dioxide 31 Anion Gap 3 BUN 20 Creatinine 1.04 D Est Cr Clr Drug Dosing 49.4 eGFR 56.40 BUN/Creatinine Ratio 19.2 Glucose 156 H POC Glucose 156 H Estimat Average Glucose 171 Hemoglobin A1c 7.6 H Calcium 8.0 L Magnesium 1.7 Iron 15 L TIBC 217 L Transferrin 155 L Transferrin % Sat 7 L Ferritin 1228.2 H Total Bilirubin 0.7 D AST 128 H ALT 60 H Alkaline Phosphatase 47 Ammonia Total Protein 5.6 L Albumin 3.0 L Globulin 2.6 Albumin/Globulin Ratio 1.2 TSH Urine Color Urine Appearance Urine pH Ur Specific [place] Urine Protein Urine Glucose (UA) Urine Ketones Urine Blood Urine Nitrite Urine Bilirubin Urine Urobilinogen Ur Leukocyte Esterase Urine WBC (Auto) Urine RBC (Auto) U Hyaline Cast (Auto) U Epithel Cells (Auto) Urine Bacteria (Auto) Anaplasma Smear Babesia Smear Lyme Disease Screen SARS-CoV-2 (PCR) Influenza Type A (PCR) Influenza Type B (PCR) RSV (RT-PCR) PG Care Time/CCT Total # of Minutes Spent Total Time Spent with Patient: Total time spent is greater than 50% in coordination of care (as documented) at patient's floor/unit and/or counseling patient: Prolonged Care Time Prolonged Care Time: Yes Total Prolonged Care Time: 80 Coding Level of Care Code 09795 SUB INP/OBS CARE 3/50MIN (25 - SIGNIFICANT, SEPARATELY IDENTIFIABLE ) Diagnoses Pancytopenia D61.818 UTI (urinary tract infection) N39.0 Tick bite of back S30.860A; W57.XXXA Hyponatremia E87.1 Hypokalemia E87.6 Myalgia M79.10 Dyslipidemia E78.5 Controlled type 2 diabetes mellitus with neurologic complication, with long-term current use of insulin E11.49; Z79.4 Obstructive sleep apnea G47.33 Hypertension I10 Elevated ferritin level R79.89 LUNA (acute kidney injury) N17.9 Abnormal LFTs R79.89 Additional Codes Prolonged Care Time - Prolonged Care Time: Yes ([id number])
[2025-01-25] MEDS: DOXYCYCLINE HYCLATE 100 MG in DEXTROSE 5% MINI-B 100 ML IV STA (10:12)
[2025-01-25] MEDS: POTASSIUM CHLORIDE CRTAB 20 MEQ TABCR PO STA (10:12)
[2025-01-25] MEDS: NSS + 20MEQ KCL 20 MEQ/1,000 ML BAG IV SCH (10:13)
[2025-01-25 10:28] LABS: Folate (Folic Acid),Ser orPlas > 22.30 ng/ml (>5.38)
[2025-01-25 10:29] LABS: Vitamin B12 428 pg/ml (180-914)
--- NOTE | 2025-01-25 10:43 | Electrocardiogram Report ---
Test Reason : Blood Pressure : */* mmHG Vent. Rate : 98 BPM Atrial Rate : 98 BPM P-R Int : 128 ms QRS Dur : 82 ms QT Int : 354 ms P-R-T Axes : 88 31 133 degrees QTcB Int : 451 ms Normal sinus rhythm Abnormal ECG When compared with ECG of 21-Apr-2020 08:29, Vent. rate has increased by [address] now depressed in Lateral leads Confirmed by Cali Reina ([id number]) on 01/25/2025 10:43:16 AM Referred By: REFERRED SELF Confirmed By: Cali Reina
[2025-01-25 10:56] LABS: Immature Retic Fraction 13.8 % (2.3-15.9); Reticulocyte % 2.39 % (0.50-2.00)
[2025-01-25] MEDS: cefTRIAXone SODIUM 2,000 MG/50 ML BAG IV SCH (17:19)
[2025-01-25] MEDS: DOXYCYCLINE HYCLATE 100 MG in DEXTROSE 5% MINI-B 100 ML IV SCH (21:17)
[2025-01-25] MEDS: ACETAMINOPHEN 325 MG TAB PO PRN (21:36)
[2025-01-25] MEDS: SODIUM CHLORIDE 0.9% 1,000 ML IV SCH (21:48)
[2025-01-26 07:12] LABS: Hematocrit (blood only) 32.4 % (37.0-47.0); Hemoglobin 11.1 g/dl (12.0-16.0); Mean Corpuscular Hemoglobin 29.9 pg (25.0-34.0); Mean Corpuscular Hgb Conc 34.3 g/dL (32.0-36.0); Mean Corpuscular Volume 87.3 fL (80.0-100.0); Mean Platelet Volume 11.2 fL (9.4-12.4); Platelet Count 67 K/uL (130-400); RDW Coefficient of Variation 14.5 % (11.5-14.5); RDW Standard Deviation 46.5 fL (36.4-46.3); Red Blood Count 3.71 M/uL (4.20-5.40); White Blood Count 2.31 K/ul (4.8-10.8)
[2025-01-26 07:32] LABS: Basophils # (auto) 0.01 K/uL (0.00-0.20); Basophils % (auto) 0.4 %; Eosinophils # (auto) 0.04 K/uL (0.00-0.50); Eosinophils % (auto) 1.7 %; Immature Granulocytes # (auto) 0.01 K/uL (0.01-0.20); Immature Granulocytes % (auto) 0.4 %; Lymphocytes # (auto) 0.78 K/uL (1.20-3.40); Lymphocytes % (auto) 33.8 %; Monocytes # (auto) 0.24 K/uL (0.11-0.59); Monocytes % (auto) 10.4 %; Neutrophils # (auto) 1.23 K/uL (1.40-6.50); Neutrophils % (auto) 53.3 %
[2025-01-26 07:33] LABS: BUN Creatinine Ratio 19.2 (10-20); Calcium 8.1 mg/dl (8.6-10.3); Creatinine Clr Calc Pharmacy 49.4 ml/min; Potassium 3.4 mmol/L (3.5-5.1)
--- NOTE | 2025-01-26 08:11 | Hospitalist Progress Note ---
Date of Service January 26, 2025 Assessment & Plan (1) Pancytopenia: (2) UTI (urinary tract infection): (3) Tick bite of back: (4) Controlled type 2 diabetes mellitus with neurologic complication, with long- term current use of insulin: (5) Obstructive sleep apnea: Plan 74yo female with DM type II, Hyperlipidemia, SAM, and HTN who presented with several days of generalized weakness, body aches, fever, chills, and urinary incontinence. She had a confirmed tick-bite of the left upper back about 2 weeks ago, although negative screening for tickborne illnesses. Confirmed E. coli urinary tract infection present on admission, has pancytopenia and curiously has elevated CK, multiple electrolyte abnormalities, profound iron deficiency anemia Admission was completed by the [facility] Hospitalist team, but again patient to establish care with Dr Galeas on 02/03/25. #pancytopenia - -in light of recent tick bite, mildly elevated LFTs, pancytopenia, and her clinical presentation continue concern about tick-borne infection -viral infections (EBV, CMV, etc) could also cause a similar presentation -place on empiric doxycycline 100mg BID -anaplasmosis DNA, ehrlichia DNA, and babesiosis DNA tests sent/pending #UTI -present on admission -2nd to Ecoli bullock sensitive -cont rocephin IV de escalate when appropriate #severe weakness & myalgias - Elevated CK concern for myositis could be result of infection or autoimmune not with typical distribution -will need PT/OT # LUNA, electrolyte abnormalities hyponatremia -hypokalemia -improving s/p isotonic fluids, repeat replete Elevated CK improving with hydration #HTN - -BPs elevated yesterday in the ER -[facility] Hospitalist team gave amlodipine 5mg with improvement in BPs today -will cont amlodipine 5mg daily -again pharmacy records show use of triamterene-HCTZ -- hold this #T2DM - -a1c 7.6% -cont lantus BID -cont novolog - will adjust parameters as BSGs are elevated #DVT proph - -as platelets are now in the 60s and trending down will avoid chemical DVT proph at this time -early ambulation if possible PT, OT consulted Admission and Anticipated Discharge Date Admission Date: January 24, 2025 Subjective mrs Valencia states she feels much improved still with hip flexor weakness but not with shoulder girdle weakness, no skin changes Physical Exam Physical Exam: no significantly tender muscles, lungs are clear, small area of previous bite is not with significant cellulitis Results & Data Results & Data Vital Signs (Past 12 Hours) Vital Signs Temp Pulse Resp BP Pulse Ox O2 Del Method 01/26/25 07:49 98.2 F 66 16 165/79 H 96 Room Air 01/25/25 21:00 Room Air Laboratory Results review cbc-pancytopenia review chemistry, mild hypokalemia review ck elevation review transaminase elevation PG Care Time/CCT Total # of Minutes Spent Total Time Spent with Patient: Total time spent is greater than 50% in coordination of care (as documented) at patient's floor/unit and/or counseling patient: Coding Level of Care Code 06708 SUB INP/OBS CARE 3/50MIN Diagnoses Pancytopenia D61.818 UTI (urinary tract infection) N39.0 Tick bite of back S30.860A; W57.XXXA Controlled type 2 diabetes mellitus with neurologic complication, with long-term current use of insulin E11.49; Z79.4 Obstructive sleep apnea G47.33
--- NOTE | 2025-01-26 12:15 | XRay Report ---
XR knee LT 1 or 2V routine CLINICAL HISTORY: fall medial joint line pain COMPARISON: None FINDINGS: There is moderate osteoarthritis. There are multiple soft tissue calcifications at the low er leg. No acute fracture or dislocation seen. There is a trace joint effusion. IMPRESSION: 1. No fracture seen. 2. Osteoarthritis. ACT 112: Negative or not required by law. Electronically signed by: Deshawn Carrizales M.D. 01/26/2025 12:14 PM
[2025-01-26 13:59] LABS: Albumin Globulin Ratio 1.2 (0.9-2); Bilirubin,Total 0.5 mg/dl (0.2-1.0); Globulin 2.5 gm/dl (2.5-4.0); Total Protein 5.4 gm/dl (6.0-8.3)
[2025-01-27 10:13] LABS: Hematocrit (blood only) 32.4 % (37.0-47.0); Hemoglobin 11.2 g/dl (12.0-16.0); Mean Corpuscular Hemoglobin 29.9 pg (25.0-34.0); Mean Corpuscular Hgb Conc 34.6 g/dL (32.0-36.0); Mean Corpuscular Volume 86.4 fL (80.0-100.0); Mean Platelet Volume 11.4 fL (9.4-12.4); Platelet Count 87 K/uL (130-400); RDW Coefficient of Variation 14.6 % (11.5-14.5); RDW Standard Deviation 46.3 fL (36.4-46.3); Red Blood Count 3.75 M/uL (4.20-5.40); White Blood Count 4.44 K/ul (4.8-10.8)
[2025-01-27 10:16] LABS: Calcium 8.5 mg/dl (8.6-10.3); Creatinine Clr Calc Pharmacy 59.1 ml/min; Potassium 3.2 mmol/L (3.5-5.1)
[2025-01-27 10:39] LABS: Basophils # (auto) 0.01 K/uL (0.00-0.20); Basophils % (auto) 0.2 %; Eosinophils # (auto) 0.07 K/uL (0.00-0.50); Eosinophils % (auto) 1.6 %; Immature Granulocytes # (auto) 0.02 K/uL (0.01-0.20); Immature Granulocytes % (auto) 0.5 %; Lymphocytes # (auto) 0.87 K/uL (1.20-3.40); Lymphocytes % (auto) 19.6 %; Monocytes # (auto) 0.33 K/uL (0.11-0.59); Monocytes % (auto) 7.4 %; Neutrophils # (auto) 3.14 K/uL (1.40-6.50); Neutrophils % (auto) 70.7 %
[2025-01-27] MEDS: POTASSIUM CHLORIDE CRTAB 20 MEQ TABCR PO STA (11:46)
--- NOTE | 2025-01-27 14:51 | Hospitalist Progress Note ---
Date of Service January 27, 2025 Assessment & Plan (1) Pancytopenia: (2) UTI (urinary tract infection): (3) Tick bite of back: (4) Controlled type 2 diabetes mellitus with neurologic complication, with long- term current use of insulin: (5) Obstructive sleep apnea: Plan 74yo female with DM type II, Hyperlipidemia, SAM, and HTN who presented with several days of generalized weakness, body aches, fever, chills, and urinary incontinence. She had a confirmed tick-bite of the left upper back about 2 weeks ago, although negative screening for tickborne illnesses. Confirmed E. coli urinary tract infection present on admission, has pancytopenia and curiously has elevated CK, multiple electrolyte abnormalities, profound iron deficiency anemia Admission was completed by the [facility] Hospitalist team, but again patient to establish care with Dr Galeas on 02/03/25. #pancytopenia - improving -in light of recent tick bite, mildly elevated LFTs, pancytopenia, and her clinical presentation continue concern about tick-borne infection -viral infections (EBV, CMV, etc) could also cause a similar presentation -place on empiric doxycycline 100mg BID -anaplasmosis DNA, ehrlichia DNA, and babesiosis DNA tests sent/pending #UTI -present on admission -2nd to Ecoli bullock sensitive -cont rocephin IV complete 3 days then just doxycycline #severe weakness & myalgias - Elevated CK concern for myositis could be result of infection or autoimmune not with typical distribution as only legs weak, transaminitis improving also no skin changes -PT/OT recc short term rehab # LUNA, electrolyte abnormalities hyponatremia -hypokalemia -improving s/p isotonic fluids, sodium normal still augmention of K+ Elevated CK improving with hydration #HTN - -BPs elevated yesterday in the ER -[facility] Hospitalist team gave amlodipine 5mg with improvement in BPs today -will cont amlodipine 5mg daily -again pharmacy records show use of triamterene-HCTZ -- hold this #T2DM - -a1c 7.6% -cont lantus BID -cont novolog - will adjust parameters as BSGs are elevated # left knee medial joint contusion, no fracture, try voltaren gel #DVT proph - -as platelets are now in the 60s and trending down will avoid chemical DVT proph at this time -early ambulation if possible pt not sure she wants rehab, will see how she progresses Admission and Anticipated Discharge Date Admission Date: January 24, 2025 Subjective pt has knee pain, relayed x ray without fracture, not sure if able to be at home, did discuss rehab with pt Physical Exam Physical Exam: pt is awake and alert lungs are unlabored cardiac is regular Results & Data Results & Data Vital Signs (Past 12 Hours) Vital Signs Temp Pulse Resp BP Pulse Ox O2 Del Method 01/27/25 08:43 85 145/74 H 01/27/25 07:56 98.2 F 84 16 180/77 H 97 Room Air Laboratory Results review cbc, wbc improving other counts stable review chemistry, low potassium ordered supplementation PG Care Time/CCT Total # of Minutes Spent Total Time Spent with Patient: Total time spent is greater than 50% in coordination of care (as documented) at patient's floor/unit and/or counseling patient: Coding Level of Care Code 09043 SUB INP/OBS CARE 3/50MIN Diagnoses Pancytopenia D61.818 UTI (urinary tract infection) N39.0 Tick bite of back S30.860A; W57.XXXA Controlled type 2 diabetes mellitus with neurologic complication, with long-term current use of insulin E11.49; Z79.4 Obstructive sleep apnea G47.33
[2025-01-27 15:10] LABS: iSTAT Creatinine 1.6 mg/dl (0.6-1.3); iSTAT Hemoglobin 11.9 g/dl (12.0-16.0); iSTAT Ionized Calcium 1.1 mmol/l (1.12-1.32); iSTAT Potassium 3.4 mmol/L (3.3-5.0)
[2025-01-27] MEDS: DICLOFENAC SOD 1% GEL 100 GM TUBE EXT SCH (15:38)
[2025-01-27] MEDS: POTASSIUM CHLORIDE CRTAB 20 MEQ TABCR PO SCH (20:04)
[2025-01-27] MEDS: DOXYCYCLINE HYCLATE 100 MG CAP PO SCH (20:04)
[2025-01-28 06:08] LABS: Babesia microti DNA Not Detected (Not Detected)
[2025-01-28 07:46] VITALS: RESP 16
[2025-01-28 08:49] LABS: Hematocrit (blood only) 33.4 % (37.0-47.0); Hemoglobin 11.4 g/dl (12.0-16.0); Mean Corpuscular Hemoglobin 29.5 pg (25.0-34.0); Mean Corpuscular Hgb Conc 34.1 g/dL (32.0-36.0); Mean Corpuscular Volume 86.5 fL (80.0-100.0); Mean Platelet Volume 11.2 fL (9.4-12.4); Platelet Count 105 K/uL (130-400); RDW Coefficient of Variation 14.6 % (11.5-14.5); RDW Standard Deviation 46.1 fL (36.4-46.3); Red Blood Count 3.86 M/uL (4.20-5.40); White Blood Count 4.13 K/ul (4.8-10.8)
[2025-01-28 09:13] LABS: BUN Creatinine Ratio 22.6 (10-20); Creatinine Clr Calc Pharmacy 55.2 ml/min; Magnesium 1.6 mg/dl (1.7-2.4); Potassium 3.7 mmol/L (3.5-5.1)
[2025-01-28 09:14] LABS: Basophils # (auto) 0.01 K/uL (0.00-0.20); Basophils % (auto) 0.2 %; Eosinophils # (auto) 0.13 K/uL (0.00-0.50); Eosinophils % (auto) 3.1 %; Immature Granulocytes # (auto) 0.02 K/uL (0.01-0.20); Immature Granulocytes % (auto) 0.5 %; Lymphocytes % (auto) 29.1 %; Monocytes # (auto) 0.22 K/uL (0.11-0.59); Monocytes % (auto) 5.3 %; Neutrophils # (auto) 2.55 K/uL (1.40-6.50); Neutrophils % (auto) 61.8 %
--- NOTE | 2025-01-28 10:37 | Discharge Summary ---
Discharge Summary Date of Service January 28, 2025 Principal Dx & Hospital Course #1 = Principal Diagnosis (1) Pancytopenia: (2) UTI (urinary tract infection): (3) Tick bite of back: (4) Controlled type 2 diabetes mellitus with neurologic complication, with long- term current use of insulin: (5) Obstructive sleep apnea: Plan 74yo female with DM type II, Hyperlipidemia, SAM, and HTN who presented with several days of generalized weakness, body aches, fever, chills, and urinary incontinence. She had a confirmed tick-bite of the left upper back about 2 weeks ago, although negative screening for tickborne illnesses. Confirmed E. coli urinary tract infection present on admission, has pancytopenia and curiously has elevated CK, multiple electrolyte abnormalities, profound iron deficiency anemia Admission was completed by the [facility] Hospitalist team, but again patient to establish care with Dr Galeas on 02/03/25. #pancytopenia - improving -in light of recent tick bite, mildly elevated LFTs, pancytopenia, and her clinical presentation continue concern about tick-borne infection -viral infections (EBV, CMV, etc) could also cause a similar presentation -place on empiric doxycycline 100mg BID -anaplasmosis DNA, ehrlichia DNA, and babesiosis DNA tests sent/pending #UTI -present on admission -2nd to Ecoli bullock sensitive -cont rocephin IV complete 3 days then just doxycycline #severe weakness & myalgias - Elevated CK concern for myositis could be result of infection or autoimmune not with typical distribution as only legs weak, transaminitis improving also no skin changes -PT/OT recc short term rehab # LUNA, electrolyte abnormalities hyponatremia -hypokalemia -improving s/p isotonic fluids, sodium normal still augmention of K+ Elevated CK improving with hydration #HTN - -BPs elevated yesterday in the ER -[facility] Hospitalist team gave amlodipine 5mg with improvement in BPs today -will cont amlodipine 5mg daily -again pharmacy records show use of triamterene-HCTZ -- hold this #T2DM - -a1c 7.6% -cont lantus BID -cont novolog - will adjust parameters as BSGs are elevated # left knee medial joint contusion, no fracture, try voltaren gel #DVT proph - -as platelets are now in the 60s and trending down will avoid chemical DVT proph at this time -early ambulation if possible pt not sure she wants rehab, will see how she progresses Admission HPI Per Admitting Provider 74-year-old female with PMH DM type II, HLD, HTN, and other problems listed below who presents to the ED for evaluation of weakness, body aches, fever. Note that patient has not been seen by her PCP since 11/2023, last seen by endocrinology 04/2024. Patient was evaluated at [facility] primary care today. Patient states she is unsure why she made an appointment at that office as she plans to continue to see Dr. Domenic Baker with [facility]. Patient was seen today for evaluation of generalized weakness, chills, body aches, and urinary incontinence. COVID and influenza testing was negative, patient unable to provide urine sample in the office. Patient was instructed to go to the ED if not improving or worsening. Patient reports she has felt feverish however did not take her temperature. She denies cough and sputum production. No chest pain or shortness of breath. Reports she has had a poor appetite but denies abdominal pain, nausea, vomiting, diarrhea. Reports urinary incontinence however denies dysuria. In the ED, patient has low-grade temp of 37.9. Labs show WBC 3.2K, platelets 79K, K+ 3.4, creatinine 1.3, glucose 294, Mg +1.6, T. bili 1.2, AST 46, UA suggestive of possible UTI, Lyme screen negative and Anaplasma/Babesia smear is negative. Patient was given IV Tylenol, IV ceftriaxone, magnesium replacement, IVF. Discharge Exam GENERAL APPEARANCE NAD, activity normal for age, well developed/ well nourished, no cyanosis, pallor, or diaphoresis. EYES lids/conjunctiva normal. EARS/NOSE/THROAT Mucous membranes moist, nares normal, lips/teeth normal uvula midline without oral pharyngeal erythema, exudate or swelling TMs normal bilaterally. No lymphangitis/lymphedema. HEAD/NECK normocephalic atraumatic, no facial trauma, neck is supple. RESPIRATORY respiratory effort normal, speaks in full sentences, no tripod position, no accessory muscle use. Lungs clear to auscultation without rhonchi, wheezes, rales CARDIAC Regular rate and rhythm, no edema. ABDOMINAL Soft, ND/NT. No evidence of fluid wave. No pulsatile masses on exam, rebound tenderness, Byrd sign or pain over Mcburney's point. MUSCLES/EXTREMITIES No abnormal range of motion, no swelling. SKIN Warm, pink and dry. No rashes, dermatoses, petechiae or lesions. NEUROLOGICAL Speech is clear and appropriate. Normal level of consciousness. Gait and coordination are normal. 5/5 strength in all extremities. PSYCH Normal mood and affect. Judgement/competence is appropriate Discharge Plan Discharge Items Patient Disposition: Home - Self-Care Reason For Visit: WEAKNESS, UTI Discharge Diagnosis: UTI Condition on Discharge: Good Activity: Resume your previous activity Non-emergency contact: Primary Care Provider Call non-emergency contact if: you have any medication questions Follow-up/Referrals: Domenic Baker, [Primary Care Provider] - Diet: Regular Addtl Attending Provider Instructions: Follow up with PMD in 2 weeks Pending Studies at Discharge: No Stand-Alone Forms: My [employer], Smoking Cessation Medications and DC Order Prescriptions: New doxycycline hyclate 100 mg Capsule 100 mg PO BID Qty: 14 0RF amlodipine [Norvasc] 5 mg Tablet 5 mg PO QAM Qty: 30 0RF Continued (DME) OneTouch Verio test strips Strip See Rx Instructions .Route Qty: 100 3RF Rx Instructions: Test blood sugars once a day Fiasp FlexTouch U-100 Insulin 100 unit/mL (3 mL) insulin pen See Rx Instructions .ROUTE .COMPLEX MDD 70 units Qty: 30 5RF Rx Instructions: SSI insulin glargine [Basaglar KwikPen U-100 Insulin] 100 unit/mL (3 mL) insulin pen 10 unit SQ DAILY Qty: 1 5RF (DME) OneTouch Ultra Test Strip See Rx Instructions .Route Rx Instructions: Test blood sugar once daily PRN (DME) pen needle, diabetic [BD Ultra-Fine Twyla Pen Needle] 32 gauge x 5/32" needle See Rx Instructions .Route Qty: 200 5RF Rx Instructions: Use with 4x/daily insulin injections (DME) Dexcom G7 Sensor Device See Rx Instructions .ROUTE .MEDSUPPLY Qty: 1 0RF Rx Instructions: change sensor every 10 days Lisinopril 1 tab PO DAILY Rx Instructions: dose unknown Discharge Orders: Discharge Order (Routine); Ordered 01/28/25 Ordered By: Cosmo Payne Admission Data Admit Date/Time: 01/24/25 17:54 Attending Provider: Cosmo Payne Admit Provider: Gala Niño I. Primary Care Provider: Domenic Baker Other Providers: Gala Niño I.; [facility]; IRB Approved Study,[facility] Hospital Stay Data Consultations 01/24/25 17:29 ED Decision to Admit Stat Pending Results Patient Have Any Pending Studies at Discharge: No Discharge Instructions Given to Patient (Per Discharging Provider) Follow up with PMD in 2 weeks Total Time Total Time Spent Total Time Spent (In Minutes): 50 Coding Level of Care Code 64778 INP/OBS DISCH >30 MIN Diagnoses Pancytopenia D61.818 UTI (urinary tract infection) N39.0 Tick bite of back S30.860A; W57.XXXA Controlled type 2 diabetes mellitus with neurologic complication, with long-term current use of insulin E11.49; Z79.4 Obstructive sleep apnea G47.33
[2025-01-28 15:13] VITALS: BP 167/60; PULSE 55; TEMP 97.7; O2SAT 98
== END 2025-01-28 18:15 | disposition home health service (06) | DRG 809 ==
LOC: ED 15:42 → 3N 17:54 → INTOOBSV 17:54 → SUATTDRO 17:54 → 3N 21:00